=== PATIENT | female | born 1930 ===

== ENCOUNTER 2018-05-10 22:49 | Observation (INO) | payer MEDICARE ==
[2018-05-10] MEDS ORDERED: Morphine 2 mg/ml ISec IVP STA (23:26)
--- NOTE | 2018-05-10 23:33 | ED PDOC ---
Arrival/HPI - General Chief Complaint: Syncope Time Seen by Provider: 05/10/18 23:26 - History of Present Illness Narrative History of Present Illness (Text): 05/10/18 23:28 88 year old female, whose past medical history includes hypertension, pacemaker , OA, and anxiety, presents to the emergency department via EMS s/p fall. Patient reports she felt weak and had midsternal chest pain before the fall. Patient describes the chest pain as a pressure-like sensation. She states she was unable to get up on her own. Patient also reports headache and left elbow pain. Patient denies any LOC, fever, chills, shortness of breath, nausea, vomiting, diarrhea, urinary symptoms, leg pain, back pain, neck pain, dizziness , or any other complaints. PMD: Dr. Orlando Staff Development Educator: Dr. Abreu Past Medical History - Provider Review Nursing Documentation Reviewed: Yes - Cardiac Hx Cardiac Disorders: Yes Hx Hypertension: Yes Hx Pacemaker: Yes - Pulmonary Hx Respiratory Disorders: Yes Hx Pneumonia: Yes Hx Tuberculosis: No - Neurological Hx Neurological Disorder: No - HEENT Hx Blind: Yes - Renal Hx Renal Disorder: No - Endocrine/Metabolic Hx Hypothyroidism: Yes - Hematological/Oncological Hx Blood Disorders: No - Integumentary Hx Dermatological Disorder: No - Musculoskeletal/Rheumatological Hx Arthritis: Yes Hx Falls: Yes - Gastrointestinal Hx Gastrointestinal Disorders: No Hx Vomiting: Yes - Genitourinary/Gynecological Hx Genitourinary Disorders: No - Psychiatric Hx Anxiety: Yes Hx Substance Use: No - Surgical History Hx Cardiac Catheterization: Yes (X4) Hx Eye Surgery: Yes Hx Hysterectomy: Yes Hx Orthopedic Surgery: Yes (LEFT TKR) - Anesthesia Hx Anesthesia: Yes Hx Anesthesia Reactions: No Hx Malignant Hyperthermia: No - Suicidal Assessment Feels Threatened In Home Enviroment: No Family/Social History - Physician Review Nursing Documentation Reviewed: Yes Family/Social History: No Known Family HX Smoking Status: Never Smoked Hx Alcohol Use: No Hx Substance Use: No Allergies/Home Meds Allergies/Adverse Reactions: Allergies iodine Allergy (Verified 05/10/18 22:59) ANAPHYLAXIS meperidine Allergy (Verified 05/10/18 22:59) VOMITING Home Medications: Home Meds Medication Instructions Recorded Confirmed ALPRAZolam [Xanax] 0.25 mg PO HS PRN 01/21/17 05/10/18 Ergocalciferol [Drisdol 50,000 1 cap PO QWK 01/21/17 05/10/18 Intl Units Cap] Gabapentin [Neurontin] 100 mg PO BID 01/21/17 05/10/18 Omeprazole 20 mg PO DAILY 01/21/17 05/10/18 Sertraline [Zoloft] 100 mg PO DAILY 01/21/17 05/10/18 Temazepam [Restoril] 30 mg PO HS 01/21/17 05/10/18 Review of Systems - Physician Review All systems were reviewed & negative as marked: Yes - Review of Systems Respiratory: absent: SOB Gastrointestinal: absent: Vomiting Physical Exam - Physical Exam Narrative Physical Exam (Text): 05/10/18 23:33 Constitutional: No acute distress. Head: Ecchymosis to the right maxilla with swelling. Normocephalic. Atraumatic. Eyes: Positive Arcus Senilis. PERRL. No hyphema ENT: Moist mucous membranes. Neck: Positive midline cervical tenderness. Cardiovascular: Regular rate. Chest: Right-sided pacemaker. No tenderness. Respiratory: Clear to auscultation bilaterally. GI: Soft. Nontender. Nondistended. Back: No CVA tenderness. Musculoskeletal: FROMx4. No tenderness to the legs bilaterally. No tenderness or swelling of extremities. Skin: No rash. Neurologic: Alert, no focal deficit. Vital Signs Reviewed: Yes Vital Signs Temp Pulse Resp BP Pulse Ox 05/10/18 22:58 98.1 F 61 18 138/55 L 100 Medical Decision Making ED Course and Treatment: 05/10/18 23:40 Plan: -- CT Cervial Spine w/o Contrast -- CT head w/o contrast -- Lumbar spine CT w/o contrast -- Orbits/facial CT w/o contrast -- Thoracic spine CT w/o contrast -- Morphine -- Pelvis X-ray -- Labs -- Reassess and disposition Progress Notes: EKG shows electrically paced rhythm at [address] elevation. Interpreted by me. EXAM: CT Head Without Intravenous Contrast Dictated and Authenticated by: Juliet Bledsoe MD 05/11/2018 12:58 AM IMPRESSION: No acute findings EXAM: CT Lumbar Spine Without Intravenous Contrast Dictated and Authenticated by: Juliet Bledsoe MD 05/11/2018 1:09 AM IMPRESSION: No acute findings. EXAM: CT Thoracic Spine Without Intravenous Contrast Dictated and Authenticated by: Juliet Bledsoe MD 05/11/2018 1:11 AM IMPRESSION: No acute findings EXAM: CT Head Without Intravenous Contrast Dictated and Authenticated by: Juliet Bledsoe MD 05/11/2018 12:58 AM IMPRESSION: No acute findings EXAM: CT Orbits Without Intravenous Contrast Dictated and Authenticated by: Juliet Bledsoe MD 05/11/2018 1:19 AM IMPRESSION: No acute findings. Pelvis X-Ray Impression: As read by me, no fracture. 05/11/18 02:30 Case discussed with Quality Compliance Coordinator and Dr. Amos who is aware and agrees with the plan. Accepts patient into his service. - Lab Interpretations Lab Results: 05/10/18 23:52 05/10/18 23:52 Lab Results 05/10/18 23:52: Sodium 138, Potassium 4.2, Chloride 101, Carbon Dioxide 26, Anion Gap 15, BUN 12, Creatinine 0.6 L, Est GFR ( Amer) > 60, Est GFR ( Non-Af Amer) > 60, Random Glucose 99, Calcium 8.8, Total Bilirubin 0.4, AST 41 H D, ALT 27, Alkaline Phosphatase 60, Total Creatine Kinase 58, Troponin I < 0.01, NT-Pro-B Natriuret Pep 313, Total Protein 6.9, Albumin 4.2, Globulin 2.8, Albumin/Globulin Ratio 1.5 05/10/18 23:52: PT 10.6, INR 0.93, APTT 23.9 L 05/10/18 23:52: WBC 6.7, RBC 5.26, Hgb 12.0, Hct 37.9, MCV 72.1 L D, MCH 22.8 L , MCHC 31.7, RDW 18.8 H, Plt Count 296, MPV 8.3, Gran % 69.6 H, Lymph % (Auto) 20.1 L, [place] % (Auto) 7.7 H, Eos % (Auto) 2.2, Baso % (Auto) 0.4, Gran # 4.66, Lymph # (Auto) 1.4, [place] # (Auto) 0.5, Eos # (Auto) 0.2, Baso # (Auto) 0.03 I have reviewed the lab results: Yes - RAD Interpretation Radiology Orders: 05/10/18 23:28 CERVICAL SPINE W/O CONTRAST [CT] Stat HEAD W/O CONTRAST [CT] Stat LUMBAR SPINE W/O CONTRAST [CT] Stat ORBITS/ FACIALS W/O CONTRAST [CT] Stat THORACIC SPINE W/O CONT [CT] Stat PELVIS ONE VIEW [RAD] Stat - EKG Interpretation Interpreted by ED Physician: Yes Type: 12 lead EKG - Medication Orders Current Medication Orders: Ergocalciferol (Drisdol 50,000 Intl Units Cap) 1 cap PO QWK ROB Montelukast Sodium (Singulair) 10 mg PO HS ROB Pantoprazole Sodium (Protonix Ec Tab) 40 mg PO 0600 ROB Discontinued Medications Aspirin (Aspirin) 325 mg PO STAT STA Stop: 05/11/18 02:30 Last Admin: 05/11/18 03:10 Dose: 325 mg Morphine Sulfate (Morphine) 2 mg IVP STAT STA Stop: 05/10/18 23:27 Last Admin: 05/10/18 23:56 Dose: 2 mg MAR Pain Assessment Document 05/10/18 23:56 SS (Rec: 05/10/18 23:58 SS [id number]) Pain Reassessment Is this a pain reassessment? No Sleep Is patient sleeping during reassessment? No Presence of Pain Presence of Pain Yes Pain Scale Used Pain Scale Used Numeric Location Left, Right or Bilateral Bilateral Pain Location Body Site Occipital Face Back Arm Description Description Constant Intensity of Pain at present 10 IVP Administration Document 05/10/18 23:56 SS (Rec: 05/10/18 23:58 SS [id number]) Charges for Administration # of IVP Administrations 1 Pantoprazole Sodium (Protonix Ec Tab) 20 mg PO ACB REPLACED BY [facility] - Scribe Statement The provider has reviewed the documentation as recorded by the Minoo Villa Provider Scribe Attestation: All medical record entries made by the Minoo were at my direction and personally dictated by me. I have reviewed the chart and agree that the record accurately reflects my personal performance of the history, physical exam, medical decision making, and the department course for this patient. I have also personally directed, reviewed, and agree with the discharge instructions and disposition.\ Disposition/Present on Arrival - Present on Arrival Any Indicators Present on Arrival: No History of DVT/PE: No History of Uncontrolled Diabetes: No Urinary Catheter: No History of Decub. Ulcer: No History Surgical Site Infection Following: None - Disposition Have Diagnosis and Disposition been Completed?: Yes Diagnosis: Chest pain Disposition: HOSPITALIZED Disposition Time: 02:30 Patient Plan: Observation, Telemetry Condition: FAIR
[2018-05-11 00:11] LABS: BASO # 0.03 K/mm3 (0.0-2.0); BASO % 0.4 % (0.0-3.0); EOS # 0.2 (0.0-0.7); EOS % 2.2 % (1.5-5.0); GRAN # 4.66 (1.4-6.5); GRAN % 69.6 % (50.0-68.0); LYMPH # 1.4 (1.2-3.4); LYMPH % 20.1 % (22.0-35.0); MEAN CORPUSCULAR HEMOGLOBIN 22.8 pg (25.0-35.0); MEAN CORPUSCULAR HGB CONC 31.7 g/dl (31.0-37.0); MEAN PLATELET VOLUME 8.3 fl (7.0-11.0); MONO # 0.5 (0.1-0.6); MONO % 7.7 % (1.0-6.0); RBC 5.26 10^6/uL (3.5-6.1); RED CELL DISTRIBUTION WIDTH 18.8 % (11.5-14.5); WHITE BLOOD COUNT 6.7 10^3/ul (4.5-11.0)
[2018-05-11 00:12] LABS: MEAN CELL VOLUME 72.1 fl (80.0-105.0)
[2018-05-11 00:15] LABS: ALB/GLOB RATIO 1.5 (1.1-1.8); ALBUMIN 4.2 g/dL (3.0-4.8); ALT/SGPT 27 U/L (7-56); AST/SGOT 41 U/L (14-36); BLOOD UREA NITROGEN 12 mg/dL (7-21); CALCIUM 8.8 mg/dL (8.4-10.5); GFR NON-AFRICAN AMERICAN > 60; PROTHROMBIN TIME 10.6 SECONDS (9.4-12.5)
[2018-05-11 00:16] LABS: INR 0.93 (0.93-1.08); PARTIAL THROMBOPLASTIN TIME 23.9 Seconds (25.1-36.5)
[2018-05-11 00:28] LABS: B-TYPE NATRIURETIC PEPTIDE 313 pg/mL (0-450); TROPONIN I < 0.01 ng/mL
--- NOTE | 2018-05-11 03:46 | CP.PCM.HP ---
<Aakash Romero - Last Filed: 05/11/18 06:32> History of Present Illness - History of Present Illness History of Present Illness: Aakash Romero, PGY-1 History and Physical Note for Dr. Summer Amos Ms. Zambrano is a 88 year old Female who was brought to the hospital by her son after she fell at home in her kitchen. Patient reports that she david from a chair, lost her balance and felt dizzy while standing, and fell to the ground. She hit her cheek on the floor, and it took about half an hour to arise. Patient says it hurts to breathe due to the impact of hitting the floor, and that her bones hurt throughout her body. The patient, who lives alone, crawled to her phone to call her son, who lives in the same building. Ambulance came and brought her to the ED, where she received 325 mg Aspirin and Morphine 2 mg for pain. Patient admits to poor appetite, and that her doctor told her that she is only 87 pounds. Patient has an atrial pacemaker which was put in 10 years ago per patient for slow heart rate. Last echo performed showed an EF of 60 back in 2017. Patient denies SOB, nausea/vomiting, losing consciousness, seizure activity, urinary and fecal incontinence, palpitations, cough, abdominal pain and easy bruising. PMHx: HTN, Pacemaker for bradycardia, OA, Anxiety, Asthma PSHx: cataract surgery, L knee replacement Allergies: Iodine, Meperidine Social Hx: Denies ETOH, tobacco and illicit drug use. Lives alone Fam Hx: no known fam history Meds: Restoril 30 PO, Sertraline 100 PO, Omeprazole 20 PO, Montelukast 10, Gabapentin 100 BID, Ergocalciferol 50,000 units, Alprazolam 0.25 PO PMD: Dr. Orlando Cardio: Dr. Abreu ([place], [place]) 12 point Review of Systems completed and was negative except for HPI. Present on Admission - Present on Admission Any Indicators Present on Admission: No History of DVT/PE: No Review of Systems - Review of Systems Review of Systems: Please refer to HPI. Past Patient History - Past Medical History & Family History Past Medical History?: Yes - Past Social History Smoking Status: Never Smoked - CARDIAC Hx Cardiac Disorders: Yes Hx Hypertension: Yes Hx Pacemaker: Yes - PULMONARY Hx Respiratory Disorders: Yes Hx Pneumonia: Yes Hx Tuberculosis: No - NEUROLOGICAL Hx Neurological Disorder: No - HEENT Hx Blind: Yes - RENAL Hx Chronic Kidney Disease: No - ENDOCRINE/METABOLIC Hx Hypothyroidism: Yes - HEMATOLOGICAL/ONCOLOGICAL Hx Blood Disorders: No - INTEGUMENTARY Hx Dermatological Problems: No - MUSCULOSKELETAL/RHEUMATOLOGICAL Hx Arthritis: Yes Hx Falls: Yes - GASTROINTESTINAL Hx Gastrointestinal Disorders: No Hx Vomiting: Yes - GENITOURINARY/GYNECOLOGICAL Hx Genitourinary Disorders: No - PSYCHIATRIC Hx Anxiety: Yes Hx Substance Use: No - SURGICAL HISTORY Hx Cardiac Catheterization: Yes (X4) Hx Eye Surgery: Yes Hx Hysterectomy: Yes Hx Orthopedic Surgery: Yes (LEFT TKR) - ANESTHESIA Hx Anesthesia: Yes Hx Anesthesia Reactions: No Hx Malignant Hyperthermia: No Meds Allergies/Adverse Reactions: Allergies Allergy/AdvReac Type Severity Reaction Status Date / Time iodine Allergy ANAPHYLAXIS Verified 05/10/18 22:59 meperidine Allergy VOMITING Verified 05/10/18 22:59 Physical Exam - Constitutional Appears: No Acute Distress, Cachectic - Head Exam Additional comments: 3 inch abrasion over R cheek with some blood - Eye Exam Eye Exam: EOMI, Normal appearance. absent: Conjunctival injection, Nystagmus, Scleral icterus Additional comments: arcus senilis noted. [place]-Hallpike maneuver performed. - ENT Exam ENT Exam: Mucous Membranes Dry - Neck Exam Neck exam: Positive for: Tenderness - Respiratory Exam Respiratory Exam: Chest Wall Tenderness, Clear to Auscultation Bilateral, NORMAL BREATHING PATTERN. absent: Rales, Rhonchi, Wheezes, Respiratory Distress - Cardiovascular Exam Cardiovascular Exam: +S1, +S2. absent: Tachycardia, Gallop, JVD Additional comments: scar and subcutaneous pacemaker located in R upper chest - GI/Abdominal Exam GI & Abdominal Exam: Normal Bowel Sounds, Soft. absent: Firm, Guarding, Organomegaly, Pulsatile Mass, Rebound, Tenderness - Extremities Exam Extremities exam: Positive for: normal capillary refill, pedal pulses present. Negative for: joint swelling Additional comments: incision over L knee from knee replacement Results - Vital Signs Recent Vital Signs: Last Vital Signs Temp 98.1 F 05/10/18 22:58 Pulse 61 05/10/18 22:58 Resp 18 05/10/18 22:58 BP 138/55 L 05/10/18 22:58 Pulse Ox 100 05/10/18 22:58 - Labs Result Diagrams: 05/10/18 23:52 05/10/18 23:52 Assessment & Plan - Assessment and Plan (Free Text) Assessment: Ms. Zambrano is an 88 year old Female with a past medical history of HTN, Atrial Pacemaker for Bradycardia, OA, anxiety and asthma who was brought by ambulance to the hospital after an unwitnessed fall at home. Fall 2/2 Presyncope vs r/o ACS vs Orthostatic Hypotension 2/2 Dehydration vs Vasovagal vs UTI - F/U CXR for any possible rib fractures - Imaging (CT of head, cervical, lumbar, thoracic and orbits) were negative except for R maxillary sinus hematoma on CT orbits - Orthostatics performed at bedside were significant- 156/63 lying, 142/58 sitting, 164/68 standing likely 2/2 poor oral intake. - EKG was 62 bpm and showed no acute ST changes - Troponin neg x1- f/u Trop #2 after 6 am - f/u carotid U/S and f/u echo in AM - f/u lipid panel and CPK - f/u cardiology consult- appreciate recommendations - f/u CBC and CMP, Mg, Phos for any electrolyte disturbances - f/u TSH and coagulation studies - f/u UA to r/o underlying UTI - Neuro checks, fall and seizure precautions in place - F/U PT evaluation for disposition Asthma: Patient denies SOB or changes in breathing patterns. continue with home montelukast. Vit. D Deficiency continue with home ergocalciferol GI/DVT Prophylaxis: Protonix 40 SCD's. No other DVT ppx given until recs received from cardio regarding anticoagulation Case reviewed and plan agreed upon with Dr. Summer Romero, PGY-1 <Darrell Amos U - Last Filed: 05/12/18 16:25> Results - Vital Signs Recent Vital Signs: Last Vital Signs Temp 97.1 F L 05/12/18 12:00 Pulse 61 05/12/18 12:00 Resp 20 05/12/18 12:00 BP 99/38 L 05/12/18 12:00 Pulse Ox 96 05/12/18 06:00 - Labs Result Diagrams: 05/12/18 06:00 05/12/18 06:00 Labs: Laboratory Results - last 24 hr 05/11/18 05/11/18 05/11/18 06:00 11:00 11:00 WBC RBC Hgb Hct MCV MCH MCHC RDW Plt Count MPV Gran % Lymph % (Auto) [place] % (Auto) Eos % (Auto) Baso % (Auto) Gran # Lymph # (Auto) [place] # (Auto) Eos # (Auto) Baso # (Auto) Sodium Potassium Chloride Carbon Dioxide Anion Gap BUN Creatinine Est GFR ( Amer) Est GFR (Non-Af Amer) Random Glucose Calcium Phosphorus Magnesium Erythropoietin 23.6 H Ferritin 7.7 Total Bilirubin AST ALT Alkaline Phosphatase Total Protein Albumin Globulin Albumin/Globulin Ratio Vitamin B12 843 Folate > 20.0 RPR Nonreactive 05/12/18 05/12/18 06:00 06:00 WBC 4.9 D RBC 4.88 Hgb 10.9 L Hct 35.4 L MCV 72.5 L MCH 22.3 L MCHC 30.8 L RDW 18.9 H Plt Count 262 MPV 8.4 Gran % 59.7 Lymph % (Auto) 24.7 [place] % (Auto) 9.3 H Eos % (Auto) 4.9 Baso % (Auto) 1.4 Gran # 2.90 Lymph # (Auto) 1.2 [place] # (Auto) 0.5 Eos # (Auto) 0.2 Baso # (Auto) 0.07 Sodium 140 Potassium 4.3 Chloride 104 Carbon Dioxide 28 Anion Gap 12 BUN 8 Creatinine 0.6 L Est GFR ( Amer) > 60 Est GFR (Non-Af Amer) > 60 Random Glucose 97 Calcium 8.4 Phosphorus 3.5 Magnesium 2.2 Erythropoietin Ferritin Total Bilirubin 0.4 AST 23 ALT 18 Alkaline Phosphatase 57 Total Protein 6.1 Albumin 3.6 Globulin 2.5 Albumin/Globulin Ratio 1.4 Vitamin B12 Folate RPR Attending/Attestation - Attestation I have personally seen and examined this patient.: Yes I have fully participated in the care of the patient.: Yes I have reviewed all pertinent clinical information: Yes Notes (Text): Please see/read my dictated notes.
[2018-05-11 04:06] VITALS: BMI 20.1
[2018-05-11] MEDS: Pantoprazole 40 mg EC Tab PO SCH (06:06)
[2018-05-11 06:27] VITALS: O2SAT 96
[2018-05-11 06:42] LABS: BASO # 0.05 K/mm3 (0.0-2.0); BASO % 0.6 % (0.0-3.0); EOS # 0.2 (0.0-0.7); EOS % 2.1 % (1.5-5.0); GRAN # 5.78 (1.4-6.5); GRAN % 71.7 % (50.0-68.0); HEMOGLOBIN 10.6 g/dL (12.0-16.0); LYMPH # 1.4 (1.2-3.4); LYMPH % 17.7 % (22.0-35.0); MEAN CELL VOLUME 71.7 fl (80.0-105.0); MEAN CORPUSCULAR HEMOGLOBIN 22.4 pg (25.0-35.0); MEAN CORPUSCULAR HGB CONC 31.3 g/dl (31.0-37.0); MEAN PLATELET VOLUME 8.6 fl (7.0-11.0); MONO # 0.6 (0.1-0.6); MONO % 7.9 % (1.0-6.0); RBC 4.73 10^6/uL (3.5-6.1); RED CELL DISTRIBUTION WIDTH 18.7 % (11.5-14.5); WHITE BLOOD COUNT 8.1 10^3/ul (4.5-11.0)
[2018-05-11 07:00] LABS: ALB/GLOB RATIO 1.4 (1.1-1.8); ALBUMIN 3.5 g/dL (3.0-4.8); ALT/SGPT 21 U/L (7-56); AST/SGOT 31 U/L (14-36); BLOOD UREA NITROGEN 9 mg/dL (7-21); CALCIUM 8.4 mg/dL (8.4-10.5); GFR NON-AFRICAN AMERICAN > 60; HDL CHOLESTEROL 58 mg/dL (29-60); TROPONIN I < 0.01 ng/mL
[2018-05-11 07:05] LABS: LDL CHOLESTEROL 38 mg/dL (0-129)
[2018-05-11 07:06] LABS: INR 1.02 (0.93-1.08); PARTIAL THROMBOPLASTIN TIME 29.1 Seconds (25.1-36.5); PROTHROMBIN TIME 11.7 SECONDS (9.4-12.5)
[2018-05-11] MEDS ORDERED: Pantoprazole 20 mg EC Tab PO SCH (07:30)
--- NOTE | 2018-05-11 08:50 | RAD ---
Date of service: 05/11/2018 PROCEDURE: Radiographs of the pelvis. HISTORY: Fall COMPARISON: None. FINDINGS: BONES: The pelvic ring is intact. There is diffuse bone demineralization. There is no acute displaced fracture or bone destruction. JOINTS: Joint spaces are preserved OTHER FINDINGS: None. IMPRESSION: No acute displaced fracture or dislocation.
--- NOTE | 2018-05-11 09:27 | RAD ---
Date of service: 05/11/2018 HISTORY: R/o rib fracture 2/2 fall COMPARISON: No prior. FINDINGS: LUNGS: The lungs are well inflated and clear. PLEURA: No significant pleural effusion identified, no pneumothorax apparent. CARDIOVASCULAR: The heart is normal in size. There is a right-sided permanent pacing device. Atherosclerotic aortic arch calcifications are present. OSSEOUS STRUCTURES: No acute displaced rib fracture. VISUALIZED UPPER ABDOMEN: Normal. OTHER FINDINGS: None. IMPRESSION: No acute findings.
--- NOTE | 2018-05-11 09:35 | CT ---
Date of service: 05/11/2018 PROCEDURE: CT HEAD WITHOUT CONTRAST. HISTORY: fall, headache COMPARISON: None available. TECHNIQUE: Axial computed tomography images were obtained through the head/brain without intravenous contrast. Radiation dose: Total exam DLP = 670 mGy-cm. This CT exam was performed using one or more of the following dose reduction techniques: Automated exposure control, adjustment of the mA and/or kV according to patient size, and/or use of iterative reconstruction technique. FINDINGS: HEMORRHAGE: No intracranial hemorrhage. BRAIN: No mass effect or edema. No atrophy or chronic microvascular ischemic changes. VENTRICLES: Unremarkable. No hydrocephalus. CALVARIUM: Unremarkable. PARANASAL SINUSES: Unremarkable as visualized. No significant inflammatory changes. MASTOID AIR CELLS: Unremarkable as visualized. No inflammatory changes. OTHER FINDINGS: The report concurs with the preliminary [facility] report IMPRESSION: No acute findings
--- NOTE | 2018-05-11 09:40 | CT ---
Date of service: 05/11/2018 PROCEDURE: CT MAXILLOFACIAL BONES WITHOUT CONTRAST HISTORY: fall, R maxillary swelling COMPARISON: None TECHNIQUE: Contiguous axial CT images of the maxillofacial bones were obtained. Coronal and sagittal reformats were generated. Radiation dose: Total exam DLP = 740 mGy-cm. This CT exam was performed using one or more of the following dose reduction techniques: Automated exposure control, adjustment of the mA and/or kV according to patient size, and/or use of iterative reconstruction technique. FINDINGS: NASAL BONES: Unremarkable. ORBITS: Unremarkable. PARANASAL SINUSES/ MASTOIDS: Clear. MAXILLA: There is soft tissue swelling and a focal hematoma in the soft tissues adjacent to the right maxilla and zygomatic arch. There is no associated fracture MANDIBLE/ TEMPOROMANDIBULAR JOINTS: Unremarkable. SKULL BASE: Unremarkable. TEMPORAL BONES: Middle ears and mastoid grossly unremarkable. OTHER FINDINGS: None. IMPRESSION: There is soft tissue swelling and a focal hematoma in the soft tissues adjacent to the right maxilla and zygomatic arch. There is no associated fracture
--- NOTE | 2018-05-11 09:45 | CT ---
Date of service: 05/11/2018 PROCEDURE: CT Cervical Spine without contrast HISTORY: fall, midline tenderness COMPARISON: None available. TECHNIQUE: Axial computed tomography images were obtained of the cervical spine without the use of intravenous contrast. Coronal and sagittal reformatted images were created and reviewed. Radiation dose: Total exam DLP = 175 mGy-cm. This CT exam was performed using one or more of the following dose reduction techniques: Automated exposure control, adjustment of the mA and/or kV according to patient size, and/or use of iterative reconstruction technique. FINDINGS: VERTEBRAE: No fracture. Normal alignment. No destructive bony lesion. DISCS/SPINAL CANAL/NEURAL FORAMINA: No significant central canal or neural foraminal stenosis. There is retrolisthesis and disc degeneration at C3-4. There has been fusion at C5-6. PARASPINAL SOFT TISSUES: Unremarkable. OTHER FINDINGS: The report concurs with the preliminary [facility] report IMPRESSION: No acute findings
--- NOTE | 2018-05-11 09:47 | CT ---
Date of service: 05/11/2018 PROCEDURE: CT Thoracic Spine without contrast HISTORY: fall, back pain COMPARISON: None. TECHNIQUE: Axial computed tomography images were obtained of the thoracic spine without intravenous contrast. Coronal and sagittal reformatted images were created and reviewed. Radiation dose: Total exam DLP = 211 mGy-cm. This CT exam was performed using one or more of the following dose reduction techniques: Automated exposure control, adjustment of the mA and/or kV according to patient size, and/or use of iterative reconstruction technique. FINDINGS: VERTEBRAE: Unremarkable. No fracture. Normal alignment. DISCS/SPINAL CANAL/NEURAL FORAMINA: Within the limits of the CT technique, no disc herniation seen. No central canal or neural foraminal stenosis.. PARASPINAL SOFT TISSUES: Unremarkable. OTHER FINDINGS: The report concurs with the preliminary [facility] report. IMPRESSION: No acute findings
--- NOTE | 2018-05-11 09:51 | CT ---
Date of service: 05/11/2018 PROCEDURE: CT Lumbar Spine without contrast HISTORY: fall, back pain COMPARISON: None. TECHNIQUE: Axial computed tomography images were obtained of the lumbar spine without the use of intravenous contrast. Coronal and sagittal reformatted images were created and reviewed. Radiation dose: Total exam DLP = 372 mGy-cm. This CT exam was performed using one or more of the following dose reduction techniques: Automated exposure control, adjustment of the mA and/or kV according to patient size, and/or use of iterative reconstruction technique. FINDINGS: VERTEBRAE: No evidence of compression fracture. There is scoliosis convex to the left with a Harvey angle of 34 degrees. DISCS/SPINAL CANAL/NEURAL FORAMINA: Multilevel disc degeneration PARASPINAL SOFT TISSUES: Unremarkable. OTHER FINDINGS: The report concurs with the preliminary [facility] report IMPRESSION: No acute findings
[2018-05-11] MEDS ORDERED: Ergocalciferol 50,000 Intl Units Cap PO SCH (10:00)
--- NOTE | 2018-05-11 10:17 | US ---
PROCEDURE: Bilateral carotid artery duplex ultrasound HISTORY: Carotid stenosis syncope PHYSICIAN(S): Luke Rebolledo MD. TECHNIQUE: Duplex sonography and color-flow Doppler were used to evaluate the carotid bifurcations and limited segments of the vertebral arteries bilaterally. FINDINGS: There is mild smooth diffuse heterogeneous echogenic plaque noted at the carotid bifurcations bilaterally. The peak systolic velocity in the proximal right internal carotid artery is 81 cm/sec. This corresponds to a 20 to 39% proximal right ICA stenosis. Normal systolic velocities are noted in the proximal right external carotid artery. There is antegrade flow in the right vertebral artery. The peak systolic velocity in the proximal left internal carotid artery is 95 cm/sec. This corresponds to a 20 to 39% proximal left ICA stenosis. Normal systolic velocities are noted in the proximal left external carotid artery. There is antegrade flow in the left vertebral artery. IMPRESSION: 1. Bilateral 20-39% proximal ICA stenoses. 2. Antegrade flow in both vertebral arteries.
[2018-05-11 10:31] LABS: IRON 19 ug/dL (45-180)
[2018-05-11 10:40] LABS: % IRON SATURATION 5 % (20-55); TOTAL IRON BINDING CAPACITY 378 ug/dL (265-497)
[2018-05-11 10:50] LABS: FREE T4 1.45 ng/dL (0.78-2.19); T4 9.6 ug/dL (5.5-11.0)
[2018-05-11 11:33] LABS: TROPONIN I < 0.01 ng/mL
--- NOTE | 2018-05-11 16:30 | CP.PCM.PN ---
Subjective - Date & Time of Evaluation Date of Evaluation: 05/11/18 Time of Evaluation: 16:25 - Subjective Subjective: Orthopedic evaluation Dr. Buchanan, full consult to follow 88F complains of pain all over her body after fall yesterday from standing onto right side. Worst pain is in her right cheek and eye. She does not localize pain to any other extremities. She admits to some low back pain. She says she was on the ground for approx 30 min before her son came. She says she feels weak. Denies numbness/tingling/loss of bowel/bladder. Objective - Vital Signs/Intake and Output Vital Signs (last 24 hours): Temp Pulse Resp BP Pulse Ox 98 F 74 18 109/59 L 96 05/11/18 12:00 05/11/18 14:00 05/11/18 12:00 05/11/18 12:00 05/11/18 06:00 Intake and Output: 05/11/18 05/11/18 06:59 18:59 Intake Total 0 Output Total 200 Balance -200 - Medications Medications: Current Medications Ergocalciferol (Drisdol 50,000 Intl Units Cap) 1 cap PO QWK [facility] Last Admin: 05/11/18 10:35 Dose: 1 cap Gabapentin (Neurontin) 100 mg PO BID [facility] PRN Reason: Protocol Last Admin: 05/11/18 10:35 Dose: 100 mg Montelukast Sodium (Singulair) 10 mg PO HS [facility] Pantoprazole Sodium (Protonix Ec Tab) 40 mg PO 0600 [facility] Last Admin: 05/11/18 06:06 Dose: 40 mg Sertraline HCl (Zoloft) 100 mg PO DAILY [facility] Last Admin: 05/11/18 10:35 Dose: 100 mg - Labs Labs: 05/11/18 06:00 05/11/18 06:00 PT 11.7 SECONDS (9.4-12.5) 05/11/18 06:00 INR 1.02 (0.93-1.08) 05/11/18 06:00 APTT 29.1 Seconds (25.1-36.5) 05/11/18 06:00 - Constitutional Appears: Well, No Acute Distress - Head Exam Additional comments: laceration to right cheek, swelling to right orbit and cheek and jaw with ecchymosis - Extremities Exam Additional comments: calves soft NT neg homans full ROM BLE without pain, no swelling/deformity discoloration except erythema over right greater troch (skin intact) and ecchymosis to lateral right knee, NVID full ROM BUE without pain in arms, no swelling/deformity/discoloration complains of feeling pain in chest with moving arms, especially right, and taking deep breaths - Back Exam Additional comments: mild paraspinal tenderness - Neurological Exam Neurological Exam: Alert, Awake, Oriented x3 Neuro motor strength exam: Left Upper Extremity: 5, Right Upper Extremity: 5, Left Lower Extremity: 5, Right Lower Extremity: 5 - Psychiatric Exam Psychiatric exam: Normal Affect, Normal Mood - Skin Skin Exam: Dry, Intact (2cm mild ecchymosis right lateral knee), Warm Assessment and Plan (1) Fall Assessment & Plan: right knee xray due to ecchymosis VTE proph PT/OT d/w Dr. Buchanan, agrees with above Status: Acute Radiology Interpretation - Radiology Interpretation #2 Interpretation: atient Name / ID : HATTIE ROSA / [id number] Exam Date : 05/11/2018 00:33:15 ( Approved ) Study Comment : Sex / Age : F / 88Y Creator : Ivis Adame MD Dictator : Ivis Adame MD Massage Therapy Instructor : Equity Holder : Ivis Adame MD Approver2 : Report Date : 05/11/2018 08:49:01 My Comment : Date of service: 05/11/2018 PROCEDURE: Radiographs of the pelvis. HISTORY: Fall COMPARISON: None. FINDINGS: BONES: The pelvic ring is intact. There is diffuse bone demineralization. There is no acute displaced fracture or bone destruction. JOINTS: Joint spaces are preserved OTHER FINDINGS: None. IMPRESSION: No acute displaced fracture or dislocation. Patient Name / ID : HATTIE ROSA / [id number] Exam Date : 05/11/2018 00:18:49 ( Approved ) Study Comment : Sex / Age : F Y Creator : Ted Mcintyre MD Dictator : Ted Mcintyre MD Massage Therapy Instructor : Equity Holder : Ted Mcintyre MD Approver2 : Report Date : 05/11/2018 09:45:44 My Comment : Date of service: 05/11/2018 PROCEDURE: CT Thoracic Spine without contrast HISTORY: fall, back pain COMPARISON: None. TECHNIQUE: Axial computed tomography images were obtained of the thoracic spine without intravenous contrast. Coronal and sagittal reformatted images were created and reviewed. Radiation dose: Total exam DLP = 211 mGy-cm. This CT exam was performed using one or more of the following dose reduction techniques: Automated exposure control, adjustment of the mA and/or kV according to patient size, and/or use of iterative reconstruction technique. FINDINGS: VERTEBRAE: Unremarkable. No fracture. Normal alignment. DISCS/SPINAL CANAL/NEURAL FORAMINA: Within the limits of the CT technique, no disc herniation seen. No central canal or neural foraminal stenosis.. PARASPINAL SOFT TISSUES: Unremarkable. OTHER FINDINGS: The report concurs with the preliminary [facility] report. IMPRESSION: No acute findings - Radiology Interpretation #3 Interpretation: Patient Name / ID : HATTIE ROSA / [id number] Exam Date : 05/11/2018 00:18:49 ( Approved ) Study Comment : Sex / Age : F Y Creator : Ted Mcintyre MD Dictator : Ted Mcintyre MD Massage Therapy Instructor : Equity Holder : Ted Mcintyre MD Approver2 : Report Date : 05/11/2018 09:45:44 My Comment : Date of service: 05/11/2018 PROCEDURE: CT Thoracic Spine without contrast HISTORY: fall, back pain COMPARISON: None. TECHNIQUE: Axial computed tomography images were obtained of the thoracic spine without intravenous contrast. Coronal and sagittal reformatted images were created and reviewed. Radiation dose: Total exam DLP = 211 mGy-cm. This CT exam was performed using one or more of the following dose reduction techniques: Automated exposure control, adjustment of the mA and/or kV according to patient size, and/or use of iterative reconstruction technique. FINDINGS: VERTEBRAE: Unremarkable. No fracture. Normal alignment. DISCS/SPINAL CANAL/NEURAL FORAMINA: Within the limits of the CT technique, no disc herniation seen. No central canal or neural foraminal stenosis.. PARASPINAL SOFT TISSUES: Unremarkable. OTHER FINDINGS: The report concurs with the preliminary [facility] report. IMPRESSION: No acute findings atient Name / ID : HATTIE ROSA / [id number] Exam Date : 05/11/2018 00:15:42 ( Approved ) Study Comment : Sex / Age : F / 88Y Creator : Ted Mcintyre MD Dictator : Ted Mcintyre MD Massage Therapy Instructor : Equity Holder : Ted Mcintyre MD Approver2 : Report Date : 05/11/2018 09:43:45 My Comment : Date of service: 05/11/2018 PROCEDURE: CT Cervical Spine without contrast HISTORY: fall, midline tenderness COMPARISON: None available. TECHNIQUE: Axial computed tomography images were obtained of the cervical spine without the use of intravenous contrast. Coronal and sagittal reformatted images were created and reviewed. Radiation dose: Total exam DLP = 175 mGy-cm. This CT exam was performed using one or more of the following dose reduction techniques: Automated exposure control, adjustment of the mA and/or kV according to patient size, and/or use of iterative reconstruction technique. FINDINGS: VERTEBRAE: No fracture. Normal alignment. No destructive bony lesion. DISCS/SPINAL CANAL/NEURAL FORAMINA: No significant central canal or neural foraminal stenosis. There is retrolisthesis and disc degeneration at C3-4. There has been fusion at C5-6. PARASPINAL SOFT TISSUES: Unremarkable. OTHER FINDINGS: The report concurs with the preliminary [facility] report IMPRESSION: No acute findings
--- NOTE | 2018-05-11 16:33 | CARD ---
APPROVED REPORT Date of service: 05/11/2018 EXAM: Two-dimensional and M-mode echocardiogram with Doppler and color Doppler. INDICATION Pre Syncope, Dizziness 2D DIMENSIONS Left Atrium (2D)4.3 (1.6-4.0cm)IVSd0.9 (0.7-1.1cm) LVDd4.1 (3.9-5.9cm)PWd1.1 (0.7-1.1cm) LVDs3.1 (2.5-4.0cm)FS (%) 23.7 % LVEF (%)47.8 (>50%) M-Mode DIMENSIONS Aortic Root3.40 (2.2-3.7cm)Aortic Cusp Exc.1.50 (1.5-2.0cm) Aortic Valve AoV Peak Mjetgynf105.0cm/Alia Peak GR.7mmHg Mitral Valve MV E Ejwkhlpb16.8cm/sMV A Utahhxhg49.4cm/sE/A ratio0.7 TDI Lateral E' Peak V6.73cm/sMedial E' Peak V6.14cm/sE/Lateral E'8.6 E/Medial E'9.4 Pulmonary Valve PV Peak Sietshuj92.1cm/sPV Peak Grad.2mmHg Tricuspid Valve TR Peak Pfcapgnx609jj/sRAP [id number] Peak Gr.36mmHg [id number] LEFT VENTRICLE The left ventricle is normal size. There is normal left ventricular wall thickness. The systolic function is mildly impaired. There is global hypokinesis of the left ventricle. Transmitral Doppler flow pattern is Grade I-abnormal relaxation pattern. RIGHT VENTRICLE The right ventricle is normal size. There is normal right ventricular wall thickness. RV Systolic function is mildly reduced. ATRIA The left atrium is borderline dilated. The right atrium is borderline dilated. AORTIC VALVE The aortic valve is moderately thickened. No aortic regurgitation is present. There is no aortic valvular stenosis. MITRAL VALVE The mitral valve is moderately thickened. Mitral regurgitation is mild. There is no mitral valve stenosis. TRICUSPID VALVE The tricuspid valve is normal in structure. There is mild to moderate tricuspid regurgitation. There is mild to moderate pulmonary hypertension. GREAT VESSELS The aortic root is normal in size. The IVC is dilated. PERICARDIAL EFFUSION There is no pericardial effusion. <Conclusion> The left ventricle is normal size. There is normal left ventricular wall thickness. The systolic function is mildly impaired. There is global hypokinesis of the left ventricle. Transmitral Doppler flow pattern is Grade I-abnormal relaxation pattern. Mitral regurgitation is mild. There is mild to moderate tricuspid regurgitation. There is mild to moderate pulmonary hypertension.
[2018-05-11 16:45] LABS: FERRITIN 7.7 ng/mL
--- NOTE | 2018-05-11 16:47 | CARD ---
APPROVED REPORT Date of service: 05/10/2018 EKG Measurement Heart [id number] <Conclusion> Electronic atrial pacemaker Nonspecific T wave abnormality Abnormal ECG
--- NOTE | 2018-05-11 16:59 | CP.PCM.CON ---
History of Present Illness - History of Present Illness History of Present Illness: 88y/o female admitted to [facility] [place] on 05/10/18 s/p fall. Pt david and felt off balance and fell hitting the floor. Pt hit her face during this injury. CT done during hospitalization reveals rt cheek hematoma no fx. Films personally reviewed by me. Pt still having pain and swelling over the area with some bleeding. PMHx: HTN, bradycardia, OA, Anxiety and asthma Sx Hx: paser, cateract and left knee All: iodine and meperidine Fam: NC Meds restoril sertraline omeprazole, singulair, gabapentin, ergocalciferol, alprazolam Review of Systems - Constitutional Constitutional: As Per HPI. absent: Fatigue, Fever - EENT Eyes: As Per HPI Ears: As Per HPI Nose/Mouth/Throat: As Per HPI - Breasts Breasts: As Per HPI - Cardiovascular Cardiovascular: As Per HPI - Respiratory Respiratory: As Per HPI - Musculoskeletal Musculoskeletal: As Per HPI, Abnormal Gait, Arthralgias - Integumentary Integumentary: As Per HPI - Neurological Neurological: As Per HPI - Psychiatric Psychiatric: As Per HPI - Endocrine Endocrine: As Per HPI - Hematologic/Lymphatic Hematologic: As Per HPI Past Patient History - Past Medical History & Family History Past Medical History?: Yes - Past Social History Smoking Status: Never Smoked - CARDIAC Hx Cardiac Disorders: Yes (Pacemaker, cardiac cath X 4 times) Hx Hypertension: Yes - PULMONARY Hx Respiratory Disorders: Yes Hx Pneumonia: Yes Hx Tuberculosis: No - NEUROLOGICAL Hx Neurological Disorder: No - HEENT Hx Blind: Yes - RENAL Hx Chronic Kidney Disease: No - ENDOCRINE/METABOLIC Hx Hypothyroidism: Yes - HEMATOLOGICAL/ONCOLOGICAL Hx Blood Disorders: No - INTEGUMENTARY Hx Dermatological Problems: No - MUSCULOSKELETAL/RHEUMATOLOGICAL Hx Arthritis: Yes - GASTROINTESTINAL Hx Gastrointestinal Disorders: No Hx Vomiting: Yes - GENITOURINARY/GYNECOLOGICAL Hx Genitourinary Disorders: No - PSYCHIATRIC Hx Anxiety: Yes Hx Substance Use: No - SURGICAL HISTORY Hx Cardiac Catheterization: Yes (X4) Hx Eye Surgery: Yes Hx Hysterectomy: Yes Hx Orthopedic Surgery: Yes (LEFT TKR) - ANESTHESIA Hx Anesthesia: Yes Hx Anesthesia Reactions: No Hx Malignant Hyperthermia: No Meds Allergies/Adverse Reactions: Allergies Allergy/AdvReac Type Severity Reaction Status Date / Time iodine Allergy ANAPHYLAXIS Verified 07/09/18 22:59 meperidine Allergy VOMITING Verified 05/10/18 22:59 - Medications Medications: Current Medications Ergocalciferol (Drisdol 50,000 Intl Units Cap) 1 cap PO QWK [facility] Last Admin: 05/11/18 10:35 Dose: 1 cap Gabapentin (Neurontin) 100 mg PO BID [facility] PRN Reason: Protocol Last Admin: 05/11/18 10:35 Dose: 100 mg Montelukast Sodium (Singulair) 10 mg PO HS [facility] Pantoprazole Sodium (Protonix Ec Tab) 40 mg PO 0600 [facility] Last Admin: 05/11/18 06:06 Dose: 40 mg Sertraline HCl (Zoloft) 100 mg PO DAILY [facility] Last Admin: 05/11/18 10:35 Dose: 100 mg Physical Exam - Constitutional Appears: Well, Non-toxic - Head Exam Head Exam: NORMOCEPHALIC Additional comments: Small hematoma right cheek, no bony step off or palate movement upon palpation - Eye Exam Eye Exam: EOMI, Normal appearance Pupil Exam: NORMAL ACCOMODATION - ENT Exam ENT Exam: Mucous Membranes Moist Additional comments: no bony step off, EAC's wnl, nose wnl throat wnl, no palate movement, hematoma rt cheek small - Neck Exam Neck exam: Positive for: Normal Inspection - Respiratory Exam Respiratory Exam: NORMAL BREATHING PATTERN Results - Vital Signs Recent Vital Signs: Last Vital Signs Temp 98 F 05/11/18 12:00 Pulse 74 05/11/18 14:00 Resp 18 05/11/18 12:00 BP 109/59 L 05/11/18 12:00 Pulse Ox 96 05/11/18 06:00 - Labs Result Diagrams: 05/11/18 06:00 05/11/18 06:00 Labs: Laboratory Results - last 24 hr 05/11/18 05/11/18 05/11/18 06:00 06:00 06:00 WBC 8.1 D RBC 4.73 Hgb 10.6 L Hct 33.9 L MCV 71.7 L MCH 22.4 L MCHC 31.3 RDW 18.7 H Plt Count 298 MPV 8.6 Gran % 71.7 H Lymph % (Auto) 17.7 L [place] % (Auto) 7.9 H Eos % (Auto) 2.1 Baso % (Auto) 0.6 Gran # 5.78 Lymph # (Auto) 1.4 [place] # (Auto) 0.6 Eos # (Auto) 0.2 Baso # (Auto) 0.05 Retic Count PT 11.7 INR 1.02 APTT 29.1 Sodium Potassium Chloride Carbon Dioxide Anion Gap BUN Creatinine Est GFR ( Amer) Est GFR (Non-Af Amer) Random Glucose Calcium Phosphorus Magnesium Iron TIBC % Saturation Ferritin Total Bilirubin AST ALT Alkaline Phosphatase Total Creatine Kinase Troponin I Total Protein Albumin Globulin Albumin/Globulin Ratio Triglycerides Cholesterol LDL Cholesterol Direct HDL Cholesterol Free T4 Thyroxine (T4) TSH 3rd Generation Blood Type AB POSITIVE Antibody Screen Negative BBK History Checked Patient has bt 05/11/18 05/11/18 05/11/18 06:00 06:00 06:00 WBC RBC Hgb Hct MCV MCH MCHC RDW Plt Count MPV Gran % Lymph % (Auto) [place] % (Auto) Eos % (Auto) Baso % (Auto) Gran # Lymph # (Auto) [place] # (Auto) Eos # (Auto) Baso # (Auto) Retic Count 0.56 PT INR APTT Sodium 140 Potassium 3.9 Chloride 103 Carbon Dioxide 29 Anion Gap 11 BUN 9 Creatinine 0.5 L Est GFR ( Amer) > 60 Est GFR (Non-Af Amer) > 60 Random Glucose 105 Calcium 8.4 Phosphorus 3.9 Magnesium 2.1 Iron TIBC % Saturation Ferritin Total Bilirubin 0.2 AST 31 ALT 21 Alkaline Phosphatase 54 Total Creatine Kinase 47 Troponin I < 0.01 Total Protein 6.0 Albumin 3.5 Globulin 2.5 Albumin/Globulin Ratio 1.4 Triglycerides 76 Cholesterol 123 L LDL Cholesterol Direct 38 HDL Cholesterol 58 Free T4 Thyroxine (T4) TSH 3rd Generation 0.76 Blood Type Antibody Screen BBK History Checked 05/11/18 05/11/18 05/11/18 06:00 06:00 11:00 WBC RBC Hgb Hct MCV MCH MCHC RDW Plt Count MPV Gran % Lymph % (Auto) [place] % (Auto) Eos % (Auto) Baso % (Auto) Gran # Lymph # (Auto) [place] # (Auto) Eos # (Auto) Baso # (Auto) Retic Count PT INR APTT Sodium Potassium Chloride Carbon Dioxide Anion Gap BUN Creatinine Est GFR ( Amer) Est GFR (Non-Af Amer) Random Glucose Calcium Phosphorus Magnesium Iron 19 L TIBC 378 % Saturation 5 L Ferritin 7.7 Total Bilirubin AST ALT Alkaline Phosphatase Total Creatine Kinase Troponin I < 0.01 Total Protein Albumin Globulin Albumin/Globulin Ratio Triglycerides Cholesterol LDL Cholesterol Direct HDL Cholesterol Free T4 1.45 Thyroxine (T4) 9.6 TSH 3rd Generation Blood Type Antibody Screen BBK History Checked Assessment & Plan (1) Fall Status: Acute (2) Anxiety Status: Acute (3) Dehydration Status: Acute (4) Hypertension Status: Acute (5) Hypothyroid Status: Acute (6) Reactive airway disease Status: Acute (7) Contusion of unspecified part of head, initial encounter Status: Acute - Assessment and Plan (Free Text) Plan: Ice to area and conservative management. fu out patient - Date & Time Date: 05/11/18 Time: 16:58
[2018-05-11 17:15] LABS: FOLATE > 20.0 ng/mL
--- NOTE | 2018-05-11 17:16 | RAD ---
Date of service: 05/11/2018 PROCEDURE: Right Knee Radiographs. HISTORY: right knee pain/ecchymosis COMPARISON: None. FINDINGS: BONES: No acute fracture. JOINTS: Tricompartmental narrowing with degenerative spurring. JOINT EFFUSION: None. OTHER FINDINGS: Soft-tissue swelling anterior to the patellar tendon. IMPRESSION: Soft tissue swelling anterior to the patellar tendon. No demonstrated fracture or dislocation. Degenerative changes.
--- NOTE | 2018-05-11 18:07 | CON ---
DATE: 05/11/2018 NEUROLOGY CONSULTATION CHIEF COMPLAINT: Falls. HISTORY OF PRESENTING ILLNESS: This is an 88-year-old woman with past medical history of hypertension; bradycardia, status post pacemaker; osteoarthritis; anxiety; asthma; who apparently came to the hospital after a fall in her kitchen. She was in the chair, lost her balance, felt lightheaded and fell to the ground, hit her cheek on the floor, and took half an hour to arise. CT head showed no acute intracranial abnormality. She is currently moving all extremities. She admits to have poor appetite and she has been losing weight. Her carotid Doppler showed 20% to 39% proximal ICA stenosis with antegrade flow in the vertebral arteries. Currently, no orthostatic vital signs. PAST MEDICAL HISTORY: As above. SOCIAL HISTORY: No illicit drug use, smoking, or EtOH abuse. PAST SURGICAL HISTORY: Cataract surgery and left knee replacement. MEDICATIONS: Reviewed by nurse per reconciliation sheet. FAMILY HISTORY: Noncontributory. ALLERGIES: IODINE AND MEPERIDINE. LABORATORY DATA: Sodium is 140, potassium 3.9, chloride 102, carbon dioxide 29. BUN of 9, creatinine 0.5. Random glucose 105. PHYSICAL EXAMINATION: VITAL SIGNS: Temperature 98, pulse rate 60, blood pressure 109/59, respiratory rate of 18, oxygen saturation 90% by room air. GENERAL: Patient sitting up in bed, in no acute distress. HEENT: Head is atraumatic and normocephalic. PERRLA. Extraocular muscles intact. NECK: Supple. No JVD. No adenopathy noted. LUNGS: Clear to auscultation. No adventitious sounds. HEART: S1 and S2, normal rate and rhythm. No murmurs, rubs, or gallops. ABDOMEN: Soft, nontender, and nondistended. Bowel sounds are present. EXTREMITIES: No clubbing. No cyanosis. Peripheral pulses are 2+ felt bilaterally. NEUROLOGIC: The patient is alert and oriented to person, place, month, and year. Recall after 5 minutes is 1/3. Poor attention span. Slow thought process. Flat affect. Cranial nerves II through XII are intact. Motor exam: Slight increased tone throughout. Moves all extremities equally. No tremor seen. Sensory exam: Light touch, pinprick, proprioception, and vibration are intact. DTRs are 2+ throughout and 1 at the ankles. Coordination: [id number] intact. No dysmetria noted. Gait is deferred for now. ASSESSMENT AND PLAN: This is an 88-year-old woman with past medical history of hypertension, atrial pacemaker for bradycardia, osteoarthritis, anxiety, asthma, who came to the hospital after unwitnessed fall at home. She found to have some orthostatic vital signs were done, which were mildly significant secondary to poor oral intake. Her transient dizziness episode is likely secondary to transient vasovagal component with transient cerebral hypoperfusion to the brain superimposed on generalized weakness from deconditioned state. At this time, we recommend; 1. Orthostatic vital signs. 2. Adequate hydration throughout the day. 3. Keep systolic blood pressure between 130s to 140s and diastolic 70s to 80s. 4. Physical and occupational therapy, may be some mild subacute rehab for deconditioned state. Once again, thank you for this consult. No further neuro testing needed. Cody Mejia MD
--- NOTE | 2018-05-11 20:03 | HP ---
HISTORY OF PRESENT ILLNESS: Patient is admitted through the emergency room. According to the triage note, patient came to the emergency room by the EMS ambulance after status post fall. Patient reports that she felt dizzy, lost balance, and fell on the right side of the body complaining of arm pain, discoloration around the right forehead and the orbits. According to the ER physician evaluation note, patient came to the emergency room with the EMS after feeling weak and also complaining of midsternal chest pain. Patient also described pressure-like sensation. Patient complained of headache, arm pain after patient fell. According to the medical information specialist evaluation, patient fell at home in the kitchen after she david up from the chair and lost her balance, fell dizzy standing, and fell to the ground and hit her right cheek on the floor and patient was on the floor for about half an hour. Patient complained of rib cage and midsternal chest pain and complained of diffuse aches and pain. Patient was treated. ALLERGIES: IODINE AND MEPERIDINE. Height is 5 feet. Weight is 84 pounds. BMI 16.5. HOME MEDICATIONS: Restoril 30 mg at bedtime, Drisdol 50,000 weekly, Neurontin 100 mg twice a day, omeprazole 20 mg daily, Restoril 30 mg at bedtime, Singulair 10 mg at bedtime, Xanax 0.25 at bedtime p.r.n., Zoloft 10 mg daily. SOCIAL HISTORY: Denies. Negative for substance abuse. Negative for alcohol. Negative for smoking. CODE STATUS: Full code. LIVING WILL AND ADVANCE DIRECTIVE: None. MENSTRUAL HISTORY: Postmenopausal. OCCUPATIONAL HISTORY: Disabled. PAST MEDICAL HISTORY: Significant for hypertension, hypovitaminosis D, history of pacemaker implant, history of neuropathy, history of insomnia, history of questionable anxiety and depression. Patient's past medical history is significant for reactive airway disease, history of anemia, history of hypothyroidism on no medications at present, history of questionable valvular heart disease, history of proteinuria, history of pyuria and bacteriuria, history of degenerative joint disease of the lumbar spine, history of gallbladder sludge, history of hysterectomy with nonvisualized ovaries. Patient's past medical history is also significant for history of osteoporosis, history of dense breast, history of hallux valgus deformity of the foot, history of right lower lobe opacity and right apical pulmonary nodule, history of ectatic thoracic aorta, history of cardiomegaly, history of right lower lobe pneumonia, atelectasis, history of right apical pulmonary nodule, history of moderate pulmonary hypertension with right ventricular systolic pressure of 40 to 50 mmHg, history of diastolic dysfunction, history of moderate pulmonary hypertension, history of grade 1 LV diastolic dysfunction. PHYSICAL EXAMINAATION: GENERAL: Patient is seen in room 372. The patient is lying in the bed. VITAL SIGNS: T-max 98.1. Heart rate 64, 71, 74. Blood pressure 138/55, 142/58. Respirations 18. O2 sat is 96 to 99%. HEENT: Positive right infraorbital bluish discoloration and swelling. Positive right facial swelling noted. Right maxillary area swelling noted. Pinkish pale conjunctivae. Dry oral mucosa. NECK: No neck rigidity. CHEST: Kyphosis. Positive right upper chest pacemaker noted. Positive kyphosis. CARDIOVASCULAR: S1, S2. Regular rhythm. Positive systolic murmur, left sternal border, right second costal space, left second intercostal space. ABDOMEN: Soft. Positive bowel sound. GENITALIA: Female. RECTAL: Deferred. EXTREMITIES: Shows no pitting, no calf numbness, no Homans' sign. MUSCULOSKELETAL: Shows a body mass index of 16.5. Cranial nerves II through XII limited. Shows decreased muscle mass. GAIT: Not tested. PSYCHIATRIC: Positive for history of anxiety, depression. DIAGNOSTICS STUDIES: Hemoglobin and hematocrit is ranging between 10.6/33.9 and 12/37.9. Platelets 298, 296. Granulocytes 71.2. Retic count 0.56. PT/PTT 11.7, 29.1. Chemistry is normal. LFTs are normal. Troponin is negative. Cholesterol 123, LDL 38, HDL 58. TSH is normal. B12, folate is normal. Iron is 19, saturation 5. RPR is nonreactive. Patient's imaging studies including knee x-ray, chest x-ray, carotid ultrasound, thoracic spine and lumbar spine CT, cervical spine CT, pelvic x-ray, orbital CT, CT of the head, all reviewed. EKG reviewed which shows paced rhythm. Patient's echocardiogram was done on an urgent basis for evaluation of chest pain which was reviewed. IMPRESSION: 1. Status post fall. 2. Dizziness, etiology undetermined. 3. Right facial contusion. 4. Precordial retrosternal chest pain, etiology undetermined. 5. Questionable hypotension. 6. Normocytic iron-deficiency anemia with granulocytosis. 7. Permanent pacemaker implant. 8. Degenerative joint disease of the right knee with tricompartmental narrowing with degenerative spurring and soft tissue swelling anterior to the patellar tendon. 9. Status post right upper chest permanent pacemaker implant. 10. Bilateral 20 to 39% proximal internal carotid artery stenosis. 11. Diffuse bone demineralization of the pelvic bones. 12. Right maxillary and zygomatic arch soft tissue swelling and focal hematoma. 13. 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 14. Gait dysfunction. 15. History of anxiety, depression, and insomnia. 16. Degenerative joint disease of the cervical spine with C5-C6 fusion. 17. Hypertensive cardiovascular disease. 18. Pulmonary hypertension with right ventricular systolic pressure of 46 mmHg. 19. Mildly impaired left ventricular systolic function with ejection fraction of 48%. 20. Grade 1 abnormal relaxation pattern. 21. Mild mitral regurgitation. 22. Moderate tricuspid regurgitation and moderate pulmonary hypertension. 23. Mildly impaired left ventricular systolic function with global left ventricular hypokinesis. 24. Moderate tricuspid regurgitation. PLAN: At this time, patient will be admitted to telemetry. Serial cardiac enzymes ordered, which are negative. Repeat labs ordered. CONSULTATION: 1. Cardiology. 2. Neurology. 3. ENT. 4. Orthopedics. Referral for TCU ordered. Patient is started on vitamin D 50,000 weekly, IV iron 200 mg daily, Neurontin 100 twice a day, Protonix 40 mg daily, Singulair 10 mg at nighttime, Zoloft 100 mg daily. Heart-healthy diet, out of bed, neuro checks, seizure precautions all ordered. SCDs, occupational therapy, physical therapy ordered. Patient will be ordered Ecotrin 81 mg daily. GI and DVT prophylaxis ordered. Patient will be continued on the above therapeutic intervention. Patient's further management will be dependent upon the patient's clinical condition, hemodynamic status, and as per patient's response to therapeutic intervention as per the patient's diagnostic test results and as per the recommendation by Cardiology; Neurology; Ear, Nose, Throat; Orthopedics. Patient has been placed on a heart-healthy diet. Dictated and electronically signed, not read. Darrell Amos MD [facility] # [id number]
[2018-05-11] MEDS: Sodium Chloride 0.9% 1,000 ML IV SCH (22:47)
[2018-05-12 06:37] LABS: BASO # 0.07 K/mm3 (0.0-2.0); BASO % 1.4 % (0.0-3.0); EOS # 0.2 (0.0-0.7); EOS % 4.9 % (1.5-5.0); GRAN # 2.9 (1.4-6.5); GRAN % 59.7 % (50.0-68.0); HEMOGLOBIN 10.9 g/dL (12.0-16.0); LYMPH # 1.2 (1.2-3.4); LYMPH % 24.7 % (22.0-35.0); MEAN CELL VOLUME 72.5 fl (80.0-105.0); MEAN CORPUSCULAR HEMOGLOBIN 22.3 pg (25.0-35.0); MEAN CORPUSCULAR HGB CONC 30.8 g/dl (31.0-37.0); MEAN PLATELET VOLUME 8.4 fl (7.0-11.0); MONO # 0.5 (0.1-0.6); MONO % 9.3 % (1.0-6.0); RBC 4.88 10^6/uL (3.5-6.1); RED CELL DISTRIBUTION WIDTH 18.9 % (11.5-14.5)
[2018-05-12 06:40] VITALS: RESP 20
[2018-05-12] MEDS: Pantoprazole 40 mg EC Tab PO SCH (06:41)
[2018-05-12 06:59] LABS: WHITE BLOOD COUNT 4.9 10^3/ul (4.5-11.0)
[2018-05-12 07:04] LABS: ALB/GLOB RATIO 1.4 (1.1-1.8); ALBUMIN 3.6 g/dL (3.0-4.8); ALT/SGPT 18 U/L (7-56); AST/SGOT 23 U/L (14-36); BLOOD UREA NITROGEN 8 mg/dL (7-21); CALCIUM 8.4 mg/dL (8.4-10.5); GFR NON-AFRICAN AMERICAN > 60
--- NOTE | 2018-05-12 09:12 | CON ---
DATE: 05/12/2018 REQUESTING PHYSICIAN: Dr. Amos. REASON FOR CONSULTATION: Recent fall, dizziness. HISTORY: This is an 88-year-old woman with a history of hypertension, prior conduction system disease, status post permanent pacemaker implant, who suffered a fall at home with multiple contusions and injury. She states that she felt somewhat dizzy and lost her balance and fell to the floor. She cannot recall any other prodromal symptoms. She is unaware of any palpitations. She denies any loss of consciousness. She suffered a contusion of her right infraorbital region as well as right arm and rib injury. Radiographic images showed no evidence of fractures. She has been maintained on Telemetry with no evidence of significant dysrhythmias. She states she underwent permanent pacemaker implant at [facility] 13 years ago. She has had one generator change in the interim. She follows with a purchasing clerk in [place] and has pacemaker followups performed routinely through [facility]. She also has a history of arthritis, lumbar disk disease, prior hysterectomy, anemia and hypothyroidism. Her medications at home reportedly include Restoril, vitamin D supplements, Neurontin, omeprazole, Singulair, Xanax and Zoloft. ALLERGIES: IODINE AND MEPERIDINE. SOCIAL HISTORY: She does not smoke or drink. FAMILY HISTORY: Both parents from age-related illness. REVIEW OF SYSTEMS: The 10-point review of systems is otherwise unremarkable. States she is a fairly active and self sufficient at home. PHYSICAL EXAMINATION: GENERAL: She is a thin, very elderly woman. VITAL SIGNS: Her blood pressure is 120/60 with a pulse of 66 with atrial pacing and intermittent sinus rhythm, respirations are 14. She is afebrile. HEENT: No JVD. CHEST: Clear to auscultation and percussion. HEART: PMI in normal position. No pathological murmurs or gallops noted. ABDOMEN: Soft, nontender with normoactive bowel sounds. EXTREMITIES: No edema. She does have significant tenderness at her right rib cage and right arm and also, has a significant ecchymosis over her right maxilla. PSYCHIATRIC: Normal mood and affect. NEUROLOGIC: Alert and was x3. No gross motor or sensory deficits appreciable. DIAGNOSTIC DATA: White count 4.9, hemoglobin and hematocrit 10.9 and 35.4 with a platelet count of 262,000. PT/PTT 11.7 and 29.1, potassium 4.3, BUN and creatinine 9 and 0.6. Two sets cardiac enzymes are negative. Cholesterol is 123 with an LDL of 38 and HDL of 58. TSH 0.76. Echocardiogram reveals normal LV size with possible mild LV systolic dysfunction and mild tricuspid regurgitation. Chest x-ray reveals normal cardiac silhouette with aortic calcification and a dual-chamber pacemaker in place. IMPRESSION: 1. Recent fall, unclear if this was a syncopal event. 2. History of conduction system disease, status post permanent pacemaker with no evidence of pacemaker dysfunction seen on telemetry monitoring. 3. History of hypertension. 4. Mild anemia. 5. Osteoarthritis. RECOMMENDATIONS: Her current medications should be continued. Orthostatic vital signs will be checked. Continued pacemaker monitoring will be arranged through her primary purchasing clerk if she has no evidence of significant dysrhythmias on Telemetry monitoring. This can be discontinued later today. Fall precautions were reviewed with her. Thank you for this consultation. We will be happy to follow along as needed. Deonte Zarco MD [facility]
[2018-05-12 13:11] VITALS: BP 99/38; PULSE 61; TEMP 97.1
--- NOTE | 2018-05-12 14:53 | DS ---
FINAL PROGRESS NOTE AND DISCHARGE SUMMARY HISTORY OF PRESENT ILLNESS: The patient was seen in room 272, bed 1. The patient is out of bed to chair. The patient is alert, awake, responsive. The patient's condition and progress were discussed with the physical therapist. The patient ambulated 300 feet. According to the physical therapist, the patient did not offer any specific complaint except for chronic weight loss, which has been going on for months and years, regarding which I have advised the patient to contact and follow up with PMD and Gastroenterology and Hematology/Oncology. PHYSICAL EXAMINATION: VITAL SIGNS: T-max 98.8; telemetry shows sinus rhythm or paced rhythm; heart rate 65, 66, 72; blood pressure 148/65, 121/63, 128/59; respirations 20; O2 sat 96%. HEENT: Head examination normocephalic, atraumatic. HEENT examination shows positive right infraorbital discoloration and bluish discoloration. Oriental conjunctivae. Anicteric sclerae. No oropharyngeal lesion. Dry oral mucosa. NECK: No neck rigidity. CHEST: Kyphosis. Positive right upper chest pacemaker. LUNGS: Shows no rales, crackles or wheezing. CARDIOVASCULAR: S1, S2. Regular rhythm. ABDOMEN: Soft. Positive bowel sound. GENITALIA: Female. ABDOMEN: Soft. Positive bowel sound. EXTREMITIES: Shows no pitting edema, no calf tenderness, no Homans' sign. MUSCULOSKELETAL: Shows a body mass index of 16 and 17. NEUROLOGICAL: Motor strength is 5/5. Gait examination is independent. The patient is able to stand up without assistance from the chair in sitting position. PSYCHIATRIC: Positive for history of anxiety, depression, insomnia. DIAGNOSTICS: On 05/12/2018, WBC 4.9, hemoglobin and hematocrit 11 and 35.4, platelet 262. Differentials are normal. Sodium 140, potassium 4.3, chloride 104, CO2 of 28, anion gap 12, BUN 8, creatinine 0.6, GFR greater than 60, glucose 97, calcium 8.4, phosphorus 3.5, magnesium 2.2, iron 19, iron saturation 5, ferritin 7.7. LFTs are normal. Troponin all three sets are negative. Vitamin B12 of 843, folate 20, TSH 0.76, T4 of 9.6. RPR is nonreactive. Microbiology negative. Blood type AB positive. The patient's imaging studies were reviewed. Echo and EKG were reviewed. The patient was seen by Cardiology, ENT, Neurology and Orthopedics. Their recommendations were noted and reinforced to the patient. The patient was seen by the Physical Therapy for approval for TCU. The patient was seen by Technical Instructor. According to the Physical Therapy, the patient ambulated 300 feet. The patient's case was referred to [facility] for [facility] Transitional Care Unit approval. FINAL IMPRESSION, PLAN AND DISCHARGE DIAGNOSES: 1. Status post fall. 2. Questionable presyncope. 3. Right inferolateral hematoma 4. Dizziness. 5. History of permanent pacemaker implant with conduction system disease. 6. History of hypertension. Hypotension at present. 7. Normocytic iron-deficiency anemia. 8. Degenerative joint disease. 9. Right infraorbital and zygomatic and maxillary area contusion. 10. History of reactive airway disease. 11. Transient hypotension. 12. Dizziness secondary to transient vasovagal component and transient cerebral hypoperfusion with generalized weakness and deconditioning. 13. Transient granulocytosis. 14. History of insomnia, anxiety and depression. 1. Status post fall. 2. Dizziness, etiology undetermined. 3. Right facial contusion. 4. Precordial retrosternal chest pain, etiology undetermined. 5. Questionable hypotension. 6. Normocytic iron-deficiency anemia with granulocytosis. 7. Permanent pacemaker implant. 8. Degenerative joint disease of the right knee with tricompartmental narrowing with degenerative spurring and soft tissue swelling anterior to the patellar tendon. 9. Status post right upper chest permanent pacemaker implant. 10. Bilateral 20 to 39% proximal internal carotid artery stenosis. 11. Diffuse bone demineralization of the pelvic bones. 12. Right maxillary and zygomatic arch soft tissue swelling and focal hematoma. 13. 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 14. Gait dysfunction. 15. History of anxiety, depression, and insomnia. 16. Degenerative joint disease of the cervical spine with C5-C6 fusion. 17. Hypertensive cardiovascular disease. 18. Pulmonary hypertension with right ventricular systolic pressure of 46 mmHg. 19. Mildly impaired left ventricular systolic function with ejection fraction of 48%. 20. Grade 1 abnormal relaxation pattern. 21. Mild mitral regurgitation. 22. Moderate tricuspid regurgitation and moderate pulmonary hypertension. 23. Mildly impaired left ventricular systolic function with global left ventricular hypokinesis. 24. Moderate tricuspid regurgitation. Plan at this time, the patient is to be discharged to TCU if accepted. Otherwise, may discharge home with visiting nurse, home health aide, home PT after cleared by Cardiology, Neurology ENT and Orthopedics. Discharge meds as per updated ambulatory orders. Discharge medications are as follows, Xanax 0.25 at bedtime p.r.n., Ecotrin 81 mg daily, Drisdol 50,000 units weekly, Neurontin 100 mg twice a day, Singulair 10 mg daily, omeprazole 20 mg daily, Zoloft 100 mg daily, Restoril 30 mg at bedtime. In addition, the patient was also advised to follow up outpatient with Hematology and Gastroenterology for evaluation of weight loss. The patient was advised to outpatient followup with Hematology and Gastroenterology for weight loss evaluation. Time spent in the entire discharge process more than 45 minutes. Dictated and electronically signed, not read. Darrell Amos MD [facility]
[2018-05-12] MEDS: Sodium Chloride 0.9% 1,000 ML IV SCH (15:51)
== END 2018-05-12 16:00 | disposition home or self-care (01) ==
LOC: ED 22:49 → ERH 05-11 02:29 → 2RSO 05-11 03:32
PROVIDERS: ADMIT Internal Medicine; ATTEND Internal Medicine
DX: R42 Dizziness and giddiness (principal); S00.83XA Contusion of other part of head, initial encounter; W19.XXXA Unspecified fall, initial encounter; R07.2 Precordial pain; D50.9 Iron deficiency anemia, unspecified; M17.11 Unilateral primary osteoarthritis, right knee; I65.23 Occlusion and stenosis of bilateral carotid arteries; I27.20 Pulmonary hypertension, unspecified; I08.1 Rheumatic disorders of both mitral and tricuspid valves; I11.9 Hypertensive heart disease without heart failure; M47.816 Spondylosis without myelopathy or radiculopathy, lumbar region; E55.9 Vitamin D deficiency, unspecified; E86.0 Dehydration; F41.9 Anxiety disorder, unspecified; M81.0 Age-related osteoporosis without current pathological fracture; J45.909 Unspecified asthma, uncomplicated; G47.00 Insomnia, unspecified; Y92.009 Unspecified place in unspecified non-institutional (private) residence as the place of occurrence of the external cause; Z95.0 Presence of cardiac pacemaker
CPT/HCPCS: 36415; 70450; 70480; 71045; 72125; 72128; 72131; 72170; 73562; 80053; 80061; 82550; 82607; 82668; 82728; 82746; 83540; 83550; 83735; 83880; 84100; 84439; 84443; 84484; 85025; 85044; 85610; 85730; 86592; 86850; 86900; 93005; 93306; 93880; 96374; 97116; 97161; 97165; 97530; 97535; 99285; G0378; G8978; G8979; G8987; G8988; J1756; J2270; J7030

== ENCOUNTER 2018-09-07 23:38 | Inpatient (IN) | payer MEDICARE, OTHER ==
--- NOTE | 2018-09-08 00:02 | ED PDOC ---
Arrival/HPI - General Chief Complaint: Lower Extremity Problem/Injury Time Seen by Provider: 09/07/18 23:46 Historian: Patient, Family - History of Present Illness Narrative History of Present Illness (Text): 09/08/18 00:01 88 year old female, whose past medical history includes hypertension, Pacemaker for bradycardia, OA, Anxiety, Asthma, and left knee replacement, presents to the emergency department complaining of left leg pain that radiates up to the left hip. Patient is unable to walk without support. She reports taking Tylenol with no relief. Patient denies any fall or trauma to the left knee. The patient denies any fever, chills, chest pain, shortness of breath, abdominal pain, nausea, vomiting, diarrhea, urinary symptoms, back pain, neck pain, headache, dizziness, or any other complaints. PMD: Dr. Olrando Symptom Onset: Gradual Symptom Course: Unchanged Activities at Onset: Light Context: Home Past Medical History - Provider Review Nursing Documentation Reviewed: Yes - Infectious Disease Hx of Infectious Diseases: None - Reproductive Menopause: Yes - Cardiac Hx Cardiac Disorders: Yes Hx Hypertension: Yes - Pulmonary Hx Respiratory Disorders: Yes Hx Pneumonia: Yes Hx Tuberculosis: No - Neurological Hx Neurological Disorder: No - HEENT Hx Blind: Yes - Renal Hx Renal Disorder: No - Endocrine/Metabolic Hx Hypothyroidism: Yes - Hematological/Oncological Hx Blood Disorders: No - Integumentary Hx Dermatological Disorder: No - Musculoskeletal/Rheumatological Hx Arthritis: Yes - Gastrointestinal Hx Gastrointestinal Disorders: No Hx Vomiting: Yes - Genitourinary/Gynecological Hx Genitourinary Disorders: No - Psychiatric Hx Anxiety: Yes Hx Substance Use: No - Surgical History Hx Cardiac Catheterization: Yes (X4) Hx Eye Surgery: Yes Hx Hysterectomy: Yes Hx Orthopedic Surgery: Yes (LEFT TKR) - Anesthesia Hx Anesthesia: Yes Hx Anesthesia Reactions: No Hx Malignant Hyperthermia: No - Suicidal Assessment Feels Threatened In Home Enviroment: No Family/Social History - Physician Review Nursing Documentation Reviewed: Yes Family/Social History: No Known Family HX Smoking Status: Never Smoked Hx Alcohol Use: No Hx Substance Use: No Allergies/Home Meds Allergies/Adverse Reactions: Allergies iodine Allergy (Verified 09/08/18 14:23) ANAPHYLAXIS meperidine Allergy (Verified 09/08/18 14:23) VOMITING Home Medications: Home Meds Medication Instructions Recorded Confirmed RX: ALPRAZolam [Xanax] 0.25 mg PO HS PRN 01/21/17 09/07/18 RX: Ergocalciferol [Drisdol 50,000 1 cap PO QWK 01/21/17 09/07/18 Intl Units Cap] RX: Gabapentin [Neurontin] 100 mg PO BID 01/21/17 09/07/18 RX: Omeprazole 20 mg PO DAILY 01/21/17 09/07/18 RX: Sertraline [Zoloft] 100 mg PO DAILY 01/21/17 09/07/18 RX: Temazepam [Restoril] 30 mg PO HS 01/21/17 09/07/18 Review of Systems - Physician Review All systems were reviewed & negative as marked: Yes - Review of Systems Constitutional: absent: Fevers, Other (Chills) Respiratory: absent: SOB Cardiovascular: absent: Chest Pain Gastrointestinal: absent: Abdominal Pain, Diarrhea, Nausea, Vomiting Genitourinary Female: absent: Dysuria, Frequency, Hematuria Musculoskeletal: Other (left leg pain radiates to left hip). absent: Back Pain, Neck Pain Physical Exam Vital Signs Reviewed: Yes Vital Signs Temp Pulse Resp BP Pulse Ox 09/07/18 23:50 97.7 F 82 17 184/83 H 96 Temperature: Afebrile Blood Pressure: Hypertensive Pulse: Regular Respiratory Rate: Normal Appearance: Positive for: Well-Appearing, Non-Toxic, Comfortable Pain Distress: None Mental Status: Positive for: Alert and Oriented X 3 - Systems Exam Head: Present: Atraumatic, Normocephalic Pupils: Present: PERRL Extroacular Muscles: Present: EOMI Conjunctiva: Present: Normal Mouth: Present: Moist Mucous Membranes Neck: Present: Normal Range of Motion Respiratory/Chest: Present: Clear to Auscultation, Good Air Exchange. No: Respiratory Distress, Accessory Muscle Use Cardiovascular: Present: Regular Rate and Rhythm, Normal S1, S2. No: Murmurs Abdomen: No: Tenderness, Distention, Peritoneal Signs Back: Present: Normal Inspection Upper Extremity: Present: Normal Inspection. No: Cyanosis, Edema Lower Extremity: Present: Other (Pain with abduction of the left leg). No: Edema Neurological: Present: GCS=15, CN II-XII Intact, Speech Normal Skin: Present: Warm, Dry, Normal Color. No: Rashes Psychiatric: Present: Alert, Oriented x 3, Normal Insight, Normal Concentration Medical Decision Making ED Course and Treatment: 09/08/18 00:02 Impression: 88 year old female presents complaining of left leg pain that radiates up to the left hip. Plan: -- Labs -- Morphine, Toradol -- Femur left x-ray -- Hip left x-ray -- Knee left x-ray -- Duplex Lower Extremity left US -- Reassess and disposition Prior Visits: Notes and results from previous visits were reviewed. Progress Notes: 09/08/18 01:41 Femur left x-ray Impression: As read by me, negative Hip left x-ray Impression: As read by me, negative Knee left x-ray Impression: As read by me, negative 09/08/18 02:51 Duplex Lower Extremity left US Impression: Negative for DVT 09/08/18 03:52 Case discussed with medical coding instructor and Dr. Fahad Ballard who is aware and agrees with the plan. Accepts patient into hospitalist service. - Lab Interpretations I have reviewed the lab results: Yes - Scribe Statement The provider has reviewed the documentation as recorded by the [place] Provider Scribe Attestation: All medical record entries made by the Scribe were at my direction and personally dictated by me. I have reviewed the chart and agree that the record accurately reflects my personal performance of the history, physical exam, medical decision making, and the department course for this patient. I have also personally directed, reviewed, and agree with the discharge instructions and disposition. Disposition/Present on Arrival - Present on Arrival Any Indicators Present on Arrival: No History of DVT/PE: No History of Uncontrolled Diabetes: No Urinary Catheter: No History of Decub. Ulcer: No History Surgical Site Infection Following: None - Disposition Have Diagnosis and Disposition been Completed?: Yes Diagnosis: Leg pain, left, Intractable pain Disposition: HOSPITALIZED Disposition Time: 03:45 Condition: FAIR
[2018-09-08] MEDS ORDERED: Morphine 2 mg/ml ISec IVP STA ×3 (00:07→22:19)
[2018-09-08 00:46] LABS: EOS % 0.9 % (1.5-5.0); GRAN % 75.5 % (50.0-68.0); HEMOGLOBIN 12.5 g/dL (12.0-16.0); LYMPH % 14.9 % (22.0-35.0); MEAN CORPUSCULAR HEMOGLOBIN 25.4 pg (25.0-35.0); MEAN CORPUSCULAR HGB CONC 33.1 g/dl (31.0-37.0); MEAN PLATELET VOLUME 7.9 fl (7.0-11.0); MONO % 8.2 % (1.0-6.0); RBC 4.93 10^6/uL (3.5-6.1); RED CELL DISTRIBUTION WIDTH 15.8 % (11.5-14.5); WHITE BLOOD COUNT 6.5 10^3/uL (4.5-11.0)
[2018-09-08 00:47] LABS: BASO # 0.03 K/mm3 (0.0-2.0); BASO % 0.5 % (0.0-3.0); EOS # 0.1 (0.0-0.7); GRAN # 4.87 (1.4-6.5); MONO # 0.5 (0.1-0.6)
[2018-09-08 00:50] LABS: MEAN CELL VOLUME 76.7 fl (80.0-105.0)
[2018-09-08 00:53] LABS: ALB/GLOB RATIO 1.4 (1.1-1.8); ALBUMIN 3.9 g/dL (3.0-4.8); ALT/SGPT 17 U/L (7-56); AST/SGOT 35 U/L (14-36); BLOOD UREA NITROGEN 11 mg/dL (7-21); CALCIUM 8.5 mg/dL (8.4-10.5); GFR NON-AFRICAN AMERICAN > 60
--- NOTE | 2018-09-08 04:42 | CP.PCM.HP ---
History of Present Illness - History of Present Illness History of Present Illness: Lam Jauregui PGY1 History and Physical for Dr Felicita Ballard Pt is a 88 yo female with a PMH of HTN, Pacemaker for bradycardia, OA, Anxiety, Asthma, and left knee replacement (1991), presents to the ED complaining of a 3 day history of left leg pain that radiates up to the left hip. Patient is unable to walk without support. She reports taking Tylenol with no relief. Patient denies any fall or trauma to the left knee. Pt states she feels weak when she tries to stand. Pt states her knee has been swollen and stiff. She reports decreased ROM. The patient denies any fever, chills, chest pain, shortness of breath, abdominal pain, nausea, vomiting, or diarrhea. A 12 point ROS was obtained and added to the HPI. PMHx: HTN, Pacemaker for bradycardia, OA, Anxiety, Asthma PSHx: cataract surgery, L knee replacement Allergies: Iodine, Meperidine Social Hx: Denies alcohol, denies tobacco, denies illicit drug use. Lives alone FH: Mother 87 DM. Father 50, MVA Meds: Restoril 30 PO, Sertraline 100 PO, Omeprazole 20 PO, Montelukast 10, Gabapentin 100 BID, Ergocalciferol 50,000 units, Alprazolam 0.25 PO PMD: Dr. Orlando Present on Admission - Present on Admission Any Indicators Present on Admission: No Review of Systems - Review of Systems Review of Systems: a 12 point ROS was obtained and added to the HPI where appropriate Past Patient History - Infectious Disease Hx of Infectious Diseases: None - Past Medical History & Family History Past Medical History?: Yes - Past Social History Smoking Status: Never Smoked - CARDIAC Hx Cardiac Disorders: Yes Hx Hypertension: Yes - PULMONARY Hx Respiratory Disorders: Yes Hx Pneumonia: Yes Hx Tuberculosis: No - NEUROLOGICAL Hx Neurological Disorder: No - HEENT Hx Blind: Yes - RENAL Hx Chronic Kidney Disease: No - ENDOCRINE/METABOLIC Hx Hypothyroidism: Yes - HEMATOLOGICAL/ONCOLOGICAL Hx Blood Disorders: No - INTEGUMENTARY Hx Dermatological Problems: No - MUSCULOSKELETAL/RHEUMATOLOGICAL Hx Arthritis: Yes - GASTROINTESTINAL Hx Gastrointestinal Disorders: No Hx Vomiting: Yes - GENITOURINARY/GYNECOLOGICAL Hx Genitourinary Disorders: No - PSYCHIATRIC Hx Anxiety: Yes Hx Substance Use: No - SURGICAL HISTORY Hx Cardiac Catheterization: Yes (X4) Hx Eye Surgery: Yes Hx Hysterectomy: Yes Hx Orthopedic Surgery: Yes (LEFT TKR) - ANESTHESIA Hx Anesthesia: Yes Hx Anesthesia Reactions: No Hx Malignant Hyperthermia: No Meds Allergies/Adverse Reactions: Allergies Allergy/AdvReac Type Severity Reaction Status Date / Time iodine Allergy ANAPHYLAXIS Verified 09/07/18 23:53 meperidine Allergy VOMITING Verified 09/07/18 23:53 Physical Exam - Constitutional Appears: Non-toxic, No Acute Distress - Head Exam Head Exam: ATRAUMATIC, NORMAL INSPECTION, NORMOCEPHALIC - Eye Exam Eye Exam: EOMI, PERRL Pupil Exam: PERRL - ENT Exam ENT Exam: Mucous Membranes Moist, Normal Exam - Neck Exam Neck exam: Positive for: Full Rom - Respiratory Exam Respiratory Exam: Clear to Auscultation Bilateral, NORMAL BREATHING PATTERN. absent: Accessory Muscle Use, Wheezes, Respiratory Distress, Stridor - Cardiovascular Exam Cardiovascular Exam: +S1, +S2. absent: Diastolic murmur, Systolic Murmur Additional comments: pt has pacemaker in place right side of chest - GI/Abdominal Exam GI & Abdominal Exam: Normal Bowel Sounds, Soft. absent: Tenderness - Extremities Exam Extremities exam: Positive for: full ROM, pedal pulses present. Negative for: calf tenderness, pedal edema, tenderness Additional comments: pt reports pain on palpation, worse with movement, surgical scar present on left knee - Neurological Exam Neurological exam: Alert, CN II-XII Intact, Oriented x3 - Psychiatric Exam Psychiatric exam: Normal Affect, Normal Mood - Skin Skin Exam: Dry, Intact, Normal Color, Warm Results - Vital Signs Recent Vital Signs: Last Vital Signs Temp 97.7 F 09/07/18 23:50 Pulse 66 09/08/18 04:25 Resp 15 09/08/18 04:25 BP 143/79 09/08/18 04:25 Pulse Ox 100 09/08/18 04:25 - Labs Result Diagrams: 09/08/18 00:25 09/08/18 00:25 Labs: Laboratory Results - last 24 hr 09/08/18 09/08/18 00:25 00:25 WBC 6.5 RBC 4.93 Hgb 12.5 Hct 37.8 MCV 76.7 L D MCH 25.4 MCHC 33.1 RDW 15.8 H Plt Count 299 MPV 7.9 Gran % 75.5 H Lymph % (Auto) 14.9 L [place] % (Auto) 8.2 H Eos % (Auto) 0.9 L Baso % (Auto) 0.5 Gran # 4.87 Lymph # (Auto) 1.0 L [place] # (Auto) 0.5 Eos # (Auto) 0.1 Baso # (Auto) 0.03 Sodium 130 L Potassium 3.6 Chloride 95 L Carbon Dioxide 24 Anion Gap 15 BUN 11 Creatinine 0.5 L Est GFR ( Amer) > 60 Est GFR (Non-Af Amer) > 60 Random Glucose 116 H Calcium 8.5 Total Bilirubin 0.4 AST 35 ALT 17 Alkaline Phosphatase 78 Total Protein 6.8 Albumin 3.9 Globulin 2.9 Albumin/Globulin Ratio 1.4 Assessment & Plan - Assessment and Plan (Free Text) Assessment: Pt is a 88 yo female with a PMH of HTN, Pacemaker for bradycardia, OA, Anxiety, Asthma, and left knee replacement (1991), presents to the ED complaining of a 3 day history of left leg pain that radiates up to the left hip. Plan: Left Knee Pain - history of OA, Total knee replacement in 1991 - pain control, morphine 1mg IVP PRN Q6 - follow up LE US, Knee X-ray, Hip/Pelvis Xray, Femur Xray official reads - pt non compliant - ortho consulted, Dr Beckham HTN - hydralazine 10mg PRN Asthma - duonebs if needed Anxiety - continue xanax 0.25 Pt seen, examined, assessment and plan discussed with Dr Felicita Jauregui PGY1 - Date & Time Date: 09/08/18 Time: 04:42
[2018-09-08 06:20] LABS: URINE BILIRUBIN NEGATIVE (NEGATIVE); URINE BLOOD NEGATIVE (NEGATIVE); URINE GLUCOSE (UA) NEGATIVE (NEGATIVE); URINE LEUKOCYTE ESTERASE SMALL Leu/uL (NEGATIVE); URINE PROTEIN NEGATIVE mg/dL (<30 mg/dL); URINE UROBILINOGEN 0.2 E.U./dL (<1 E.U./dL)
[2018-09-08 06:21] LABS: URINE APPEARANCE SL CLOUDY (CLEAR); URINE COLOR YELLOW (YELLOW)
[2018-09-08 06:26] LABS: URINE BACTERIA SMALL (NEG); URINE RBC 0 - 2 /hpf (0-2)
[2018-09-08 08:11] LABS: BARBITURATES, UR NEGATIVE (NEGATIVE); BENZODIAZEPINES, UR POSITIVE (NEGATIVE); OPIATES, UR POSITIVE (NEGATIVE); PHENCYCLIDINE, UR NEGATIVE (NEGATIVE)
[2018-09-08 08:22] LABS: BASO # 0.05 K/mm3 (0.0-2.0); BASO % 0.8 % (0.0-3.0); EOS # 0.1 (0.0-0.7); EOS % 2.2 % (1.5-5.0); GRAN # 4.05 (1.4-6.5); GRAN % 62.1 % (50.0-68.0); HEMOGLOBIN 12.3 g/dL (12.0-16.0); LYMPH # 1.7 (1.2-3.4); LYMPH % 25.8 % (22.0-35.0); MEAN CELL VOLUME 76.6 fl (80.0-105.0); MEAN CORPUSCULAR HEMOGLOBIN 24.8 pg (25.0-35.0); MEAN CORPUSCULAR HGB CONC 32.4 g/dl (31.0-37.0); MEAN PLATELET VOLUME 8.2 fl (7.0-11.0); MONO # 0.6 (0.1-0.6); MONO % 9.1 % (1.0-6.0); RBC 4.96 10^6/uL (3.5-6.1); RED CELL DISTRIBUTION WIDTH 15.8 % (11.5-14.5); WHITE BLOOD COUNT 6.5 10^3/uL (4.5-11.0)
--- NOTE | 2018-09-08 08:56 | RAD ---
Date of service: 09/08/2018 HISTORY: cp COMPARISON: 05/11/2018 FINDINGS: LUNGS: No active pulmonary disease. PLEURA: No significant pleural effusion identified, no pneumothorax apparent. CARDIOVASCULAR: Aortic calcification Normal cardiac size. No pulmonary vascular congestion. OSSEOUS STRUCTURES: No significant abnormalities. VISUALIZED UPPER ABDOMEN: Normal. OTHER FINDINGS: Dual lead pacemaker IMPRESSION: No active disease.
[2018-09-08 08:59] LABS: ALB/GLOB RATIO 1.3 (1.1-1.8); ALBUMIN 3.5 g/dL (3.0-4.8); ALT/SGPT 20 U/L (7-56); AST/SGOT 20 U/L (14-36); BLOOD UREA NITROGEN 9 mg/dL (7-21); CALCIUM 8.3 mg/dL (8.4-10.5); GFR NON-AFRICAN AMERICAN > 60
--- NOTE | 2018-09-08 09:08 | RAD ---
PROCEDURE: Left Hip and pelvis x-ray Radiographs. HISTORY: pain COMPARISON: None. FINDINGS: BONES: Normal. No fracture. JOINTS: Normal. SOFT TISSUES: Normal. OTHER FINDINGS: Disc degeneration at L4-5. There is lateral subluxation of L4 relative to L5 IMPRESSION: No evidence of hip fracture
--- NOTE | 2018-09-08 09:09 | RAD ---
Date of service: 09/08/2018 PROCEDURE: Left knee HISTORY: pain COMPARISON: TECHNIQUE: Two views FINDINGS: Left knee prosthesis in satisfactory alignment. No fracture or loosening IMPRESSION: Negative study
--- NOTE | 2018-09-08 09:10 | RAD ---
Date of service: 09/08/2018 PROCEDURE: Left Femur Radiographs. HISTORY: pain COMPARISON: None. TECHNIQUE: AP and Lateral Radiographs of the left femur. FINDINGS: FEMUR: Normal. No fracture. SOFT TISSUES: Normal. OTHER FINDINGS: None. IMPRESSION: Unremarkable radiographs of the left femur.
--- NOTE | 2018-09-08 09:30 | US ---
PROCEDURE: Left lower extremity venous US HISTORY: Leg pain and swelling. Evaluate for DVT. PHYSICIAN(S): Luke Rebolledo MD. TECHNIQUE: Duplex sonography and color-flow Doppler with graded compression were used to evaluate the deep venous system of the left lower extremity. FINDINGS: The visualized deep venous system of the left lower extremity is sonographically normal and compressible. Normal wave forms and augmentation are seen. There is no sonographic evidence for deep venous thrombosis in the visualized segments of the left lower extremity. IMPRESSION: 1. No sonographic evidence for deep venous thrombosis in the visualized segments of the left lower extremity.
--- NOTE | 2018-09-08 10:09 | CARD ---
APPROVED REPORT Date of service: 09/08/2018 EKG Measurement Heart [id number] <Conclusion> Normal sinus rhythm Possible Left atrial enlargement Nonspecific T wave abnormality Abnormal ECG
[2018-09-08] MEDS: Pantoprazole 20 mg EC Tab PO SCH (10:55)
[2018-09-08] MEDS: Morphine 2 mg/ml ISec IVP PRN ×2 (11:15→17:31)
[2018-09-08 17:32] VITALS: BMI 16.5
[2018-09-08] MEDS ORDERED: Pneumococcal 23-Valent Vaccine IM ONE (17:32)
[2018-09-08] MEDS ORDERED: Influenza Vaccine 60 mcg/0.5 mL SYR (4YR UP) IM ONE (17:32)
[2018-09-09] MEDS: Morphine 2 mg/ml ISec IVP PRN ×3 (06:07→18:18)
[2018-09-09 06:53] LABS: BASO # 0.05 K/mm3 (0.0-2.0); BASO % 1.1 % (0.0-3.0); EOS # 0.2 (0.0-0.7); EOS % 3.3 % (1.5-5.0); GRAN # 2.68 (1.4-6.5); GRAN % 58.6 % (50.0-68.0); HEMOGLOBIN 11.9 g/dL (12.0-16.0); LYMPH # 1.2 (1.2-3.4); LYMPH % 25.4 % (22.0-35.0); MEAN CORPUSCULAR HEMOGLOBIN 24.8 pg (25.0-35.0); MEAN CORPUSCULAR HGB CONC 32.2 g/dl (31.0-37.0); MONO # 0.5 (0.1-0.6); MONO % 11.6 % (1.0-6.0); RBC 4.79 10^6/uL (3.5-6.1); WHITE BLOOD COUNT 4.6 10^3/uL (4.5-11.0)
[2018-09-09 06:57] LABS: ALB/GLOB RATIO 1.2 (1.1-1.8); ALBUMIN 3.3 g/dL (3.0-4.8); ALT/SGPT 24 U/L (7-56); AST/SGOT 21 U/L (14-36); BLOOD UREA NITROGEN 16 mg/dL (7-21); CALCIUM 8.7 mg/dL (8.4-10.5); GFR NON-AFRICAN AMERICAN > 60
[2018-09-09] MEDS: Pantoprazole 20 mg EC Tab PO SCH (08:58)
--- NOTE | 2018-09-09 13:57 | CP.PCM.CON ---
History of Present Illness - History of Present Illness History of Present Illness: Orthopedic consultation Dr. Beckham 88F complains of acute onset of left leg pain that started about 3 days ago. She says she can not walk due to the pain. She was able to walk prior to this onset. Denies any recent falls or trauma. Denies numbness/tingling/bowel or bladder changes. She says the pain is in her ankle and shoots all the way up to her hip. She has never had pain like this before. While lying in bed right now she has a little pain. Denies CP/SOB/dizziness/n/v/fever/chills. SHe had left TKR in 1991, no pain in her knee prior to this episode. Review of Systems - Review of Systems All systems: reviewed and no additional remarkable complaints except - Constitutional Constitutional: As Per HPI - Cardiovascular Cardiovascular: As Per HPI - Respiratory Respiratory: As Per HPI - Musculoskeletal Musculoskeletal: As Per HPI - Integumentary Integumentary: As Per HPI Additional comments: redness to toes - Neurological Neurological: As Per HPI - Hematologic/Lymphatic Hematologic: absent: As Per HPI, Easy Bleeding, Easy Bruising, Lymphadenopathy, Other Past Patient History - Infectious Disease Hx of Infectious Diseases: None - Past Medical History & Family History Past Medical History?: Yes Past Family History: Reviewed and not pertinent - Past Social History Smoking Status: Never Smoked - CARDIAC Hx Cardiac Disorders: Yes Hx Hypertension: Yes - PULMONARY Hx Respiratory Disorders: Yes Hx Pneumonia: Yes Hx Tuberculosis: No - NEUROLOGICAL Hx Neurological Disorder: No - HEENT Hx Blind: Yes - RENAL Hx Chronic Kidney Disease: No - ENDOCRINE/METABOLIC Hx Hypothyroidism: Yes - HEMATOLOGICAL/ONCOLOGICAL Hx Blood Disorders: No - INTEGUMENTARY Hx Dermatological Problems: No - MUSCULOSKELETAL/RHEUMATOLOGICAL Hx Arthritis: Yes - GASTROINTESTINAL Hx Gastrointestinal Disorders: No Hx Vomiting: Yes - GENITOURINARY/GYNECOLOGICAL Hx Genitourinary Disorders: No - PSYCHIATRIC Hx Anxiety: Yes Hx Substance Use: No - SURGICAL HISTORY Hx Cardiac Catheterization: Yes (X4) Hx Eye Surgery: Yes Hx Hysterectomy: Yes Hx Orthopedic Surgery: Yes (LEFT TKR) - ANESTHESIA Hx Anesthesia: Yes Hx Anesthesia Reactions: No Hx Malignant Hyperthermia: No Meds Allergies/Adverse Reactions: Allergies Allergy/AdvReac Type Severity Reaction Status Date / Time iodine Allergy ANAPHYLAXIS Verified 09/08/18 14:23 meperidine Allergy VOMITING Verified 09/08/18 14:23 - Medications Medications: Current Medications Alprazolam (Xanax) 0.25 mg PO DAILY [facility] [place]; Protocol Stop: 09/15/18 10:01 Last Admin: 09/09/18 09:11 Dose: 0.25 mg Aspirin (Ecotrin) 81 mg PO DAILY [facility] [place] Last Admin: 09/09/18 09:11 Dose: 81 mg Gabapentin (Neurontin) 100 mg PO BID [facility] [place]; Protocol Last Admin: 09/09/18 09:10 Dose: 100 mg Hydralazine HCl (Apresoline) 10 mg IVP ONCE PRN PRN Reason: Systolic Blood Pressure Montelukast Sodium (Singulair) 10 mg PO HS [facility] Last Admin: 09/08/18 22:13 Dose: 10 mg Morphine Sulfate (Morphine) 1 mg IVP Q6 PRN PRN Reason: Pain, moderate (4-7) Last Admin: 09/09/18 12:14 Dose: 1 mg Pantoprazole Sodium (Protonix Ec Tab) 20 mg PO ACB [facility] Last Admin: 09/09/18 08:58 Dose: 20 mg Sertraline HCl (Zoloft) 100 mg PO DAILY [facility] Last Admin: 09/09/18 09:11 Dose: 100 mg Physical Exam - Constitutional Appears: Well, No Acute Distress - Head Exam Head Exam: ATRAUMATIC - Neck Exam Neck exam: Positive for: Full Rom, Normal Inspection - Respiratory Exam Respiratory Exam: NORMAL BREATHING PATTERN - Cardiovascular Exam Additional comments: +DP/PT pulses B - Extremities Exam Extremities exam: Positive for: normal inspection - Expanded Lower Extremities Exam Left Hip exam: full ROM (complains of tenderness to deep hip palpation) Knee exam: full ROM (pain free, no swelling/effusion/erythema/discoloration. Stable to varus/valgus/raphael. Incision well healed. Non tender. Full AROM wihtout pain) Ankle exam: FULL ROM (complains of pain with ankle DF and great toe extension 4+/5 strength to both. Non tender to foot/lower leg) - Back Exam Additional comments: general tenderness to lumbar spine, mild negative SLR on left - Neurological Exam Neurological exam: Alert, Oriented x3 Additional comments: sensation intact BLE, however patient admits her left leg feels different over entire leg, feels like light touch is harder on left leg - Psychiatric Exam Psychiatric exam: Normal Mood Additional comments: easily tearful - Skin Skin Exam: Dry, Intact, Normal Color, Warm Additional comments: onychomycosis noted to toes, with mild erythema to great toes around nail bed no other erythema or lesions Results - Vital Signs Recent Vital Signs: Last Vital Signs Temp 98.1 F 09/09/18 08:16 Pulse 96 H 09/09/18 08:16 Resp 20 09/09/18 08:16 BP 135/72 09/09/18 08:16 Pulse Ox 96 09/09/18 08:16 - Labs Result Diagrams: 09/09/18 06:00 09/09/18 06:00 Labs: Laboratory Results - last 24 hr 09/08/18 09/09/18 09/09/18 22:18 06:00 06:00 WBC 4.6 D RBC 4.79 Hgb 11.9 L Hct 36.9 MCV 77.0 L MCH 24.8 L MCHC 32.2 RDW 16.0 H Plt Count 277 MPV 8.0 Gran % 58.6 Lymph % (Auto) 25.4 [place] % (Auto) 11.6 H Eos % (Auto) 3.3 Baso % (Auto) 1.1 Gran # 2.68 Lymph # (Auto) 1.2 [place] # (Auto) 0.5 Eos # (Auto) 0.2 Baso # (Auto) 0.05 Sodium 135 Potassium 4.4 Chloride 100 Carbon Dioxide 28 Anion Gap 11 BUN 16 Creatinine 0.7 Est GFR ( Amer) > 60 Est GFR (Non-Af Amer) > 60 POC Glucose (mg/dL) 114 H Random Glucose 104 Calcium 8.7 Total Bilirubin 0.2 AST 21 ALT 24 Alkaline Phosphatase 50 Total Protein 6.0 Albumin 3.3 Globulin 2.7 Albumin/Globulin Ratio 1.2 - EKG Data EKG comments: atient Name / ID : HATTIE ROSA / [id number] Exam Date : 05/11/2018 00:21:59 ( Approved ) Study Comment : Sex / Age : F / 88Y Creator : Ted Mcintyre MD Dictator : Ted Mcintyre MD Ditching Machine Engineer : Medical Device Assembler : Ted Mcintyre MD Approver2 : Report Date : 05/11/2018 09:50:14 My Comment : Date of service: 05/11/2018 PROCEDURE: CT Lumbar Spine without contrast HISTORY: fall, back pain COMPARISON: None. TECHNIQUE: Axial computed tomography images were obtained of the lumbar spine without the use of intravenous contrast. Coronal and sagittal reformatted images were created and reviewed. Radiation dose: Total exam DLP = 372 mGy-cm. This CT exam was performed using one or more of the following dose reduction techniques: Automated exposure control, adjustment of the mA and/or kV according to patient size, and/or use of iterative reconstruction technique. FINDINGS: VERTEBRAE: No evidence of compression fracture. There is scoliosis convex to the left with a Harvey angle of 34 degrees. DISCS/SPINAL CANAL/NEURAL FORAMINA: Multilevel disc degeneration PARASPINAL SOFT TISSUES: Unremarkable. OTHER FINDINGS: The report concurs with the preliminary [facility] report IMPRESSION: No acute findings - Impressions Impression: atient Name / ID : HATTIE ROSA / [id number] Exam Date : 09/08/2018 01:13:06 ( Approved ) Study Comment : Sex / Age : F / 88Y Creator : Ted Mcintyre MD Dictator : Ted Mcintyre MD Ditching Machine Engineer : Medical Device Assembler : Ted Mcintyre MD Approver2 : Report Date : 09/08/2018 09:06:45 My Comment : Date of service: 09/08/2018 PROCEDURE: Left Femur Radiographs. HISTORY: pain COMPARISON: None. TECHNIQUE: AP and Lateral Radiographs of the left femur. FINDINGS: FEMUR: Normal. No fracture. SOFT TISSUES: Normal. OTHER FINDINGS: None. IMPRESSION: Unremarkable radiographs of the left femur. xam Date : 09/08/2018 00:14:22 ( Approved ) Study Comment : Sex / Age : F Y Creator : Ted Mcintyre MD Dictator : Ted Mcintyre MD Ditching Machine Engineer : Medical Device Assembler : Ted Mcintyre MD Approver2 : Report Date : 09/08/2018 09:04:38 My Comment : PROCEDURE: Left Hip and pelvis x-ray Radiographs. HISTORY: pain COMPARISON: None. FINDINGS: BONES: Normal. No fracture. JOINTS: Normal. SOFT TISSUES: Normal. OTHER FINDINGS: Disc degeneration at L4-5. There is lateral subluxation of L4 relative to L5 IMPRESSION: No evidence of hip fracture atient Name / ID : HATTIE ROSA / [id number] Exam Date : 09/08/2018 01:13:03 ( Approved ) Study Comment : Sex / Age : Y Creator : Ted Mcintyre MD Dictator : Ted Mcintyre MD Ditching Machine Engineer : Medical Device Assembler : Ted Mcintyre MD Approver2 : Report Date : 09/08/2018 09:05:56 My Comment : Date of service: 09/08/2018 PROCEDURE: Left knee HISTORY: pain COMPARISON: TECHNIQUE: Two views FINDINGS: Left knee prosthesis in satisfactory alignment. No fracture or loosening IMPRESSION: Negative study Assessment & Plan (1) Lumbosacral spondylosis with radiculopathy Assessment and Plan: no evidence that this pain is at all related to left total knee replacement. Benign in clinical appearance, full ROM, non tender and no evidence of radiographic loosening, well positioned Pain appears to be referred pain, noted CT of lumbar spine from 05/2018 and hip xrays from this admission shows significant spondylosis of lower lumbar spine and lateral subluxation to left of L5 on S1. No orthopedic intervention indicated. Will get CT of lumbar spine to compare to prior exam for any acute changes or fracture. Recommend spine consultation/neurosurgery as this is outside of scope of practice of Dr. Beckham. d/w Dr. Beckham, agrees with above Status: Acute (2) Scoliosis Assessment and Plan: [address] from 05/2018 Status: Acute
--- NOTE | 2018-09-09 18:20 | CP.PCM.PN ---
<Felix Ulrich - Last Filed: 09/09/18 18:17> Subjective - Date & Time of Evaluation Date of Evaluation: 09/09/18 Time of Evaluation: 07:00 - Subjective Subjective: Felix Ulrich, PGY1 Medicine Progress Note for Dr. Lee Patient was seen and examined at bedside this morning. She is still c/o her left leg pain. She also has upper and low back pain. Hip/pelvic pain is also present with radiation to both legs. Son was present at bedside and explained that patient has been exerting herself (lifting garbage cans and doing household cho res) and this may be attributable to the pain. Patient was tearful during interview. Denies cp, sob, n/v/d, fevers, chills, dizziness. A full 12 point ROS was conducted and unremarkable except as stated above. Objective - Vital Signs/Intake and Output Vital Signs (last 24 hours): Temp Pulse Resp BP Pulse Ox 99.2 F 64 20 121/45 L 98 09/09/18 17:26 09/09/18 17:26 09/09/18 17:26 09/09/18 17:26 09/09/18 17:26 Intake and Output: 09/09/18 09/09/18 06:59 18:59 Intake Total 120 Output Total 700 Balance -580 - Medications Medications: Current Medications Alprazolam (Xanax) 0.25 mg PO DAILY [facility]; Protocol Stop: 09/15/18 10:01 Last Admin: 09/09/18 09:11 Dose: 0.25 mg Aspirin (Ecotrin) 81 mg PO DAILY [facility] Last Admin: 09/09/18 09:11 Dose: 81 mg Gabapentin (Neurontin) 100 mg PO BID [facility]; Protocol Last Admin: 09/09/18 17:10 Dose: 100 mg Hydralazine HCl (Apresoline) 10 mg IVP ONCE PRN PRN Reason: Systolic Blood Pressure Montelukast Sodium (Singulair) 10 mg PO HS [facility] Last Admin: 09/08/18 22:13 Dose: 10 mg Morphine Sulfate (Morphine) 1 mg IVP Q6 PRN PRN Reason: Pain, moderate (4-7) Last Admin: 09/09/18 12:14 Dose: 1 mg Pantoprazole Sodium (Protonix Ec Tab) 20 mg PO ACB [facility] Last Admin: 09/09/18 08:58 Dose: 20 mg Sertraline HCl (Zoloft) 100 mg PO DAILY [facility] Last Admin: 09/09/18 09:11 Dose: 100 mg - Labs Labs: 09/09/18 06:00 09/09/18 06:00 - Constitutional Appears: No Acute Distress - Eye Exam Eye Exam: EOMI, Normal appearance, PERRL - ENT Exam ENT Exam: Mucous Membranes Moist, Normal Exam - Neck Exam Neck Exam: Full ROM, Normal Inspection. absent: Lymphadenopathy - Respiratory Exam Respiratory Exam: Clear to Ausculation Bilateral, NORMAL BREATHING PATTERN. absent: Rales, Rhonchi, Wheezes - Cardiovascular Exam Cardiovascular Exam: REGULAR RHYTHM, +S1, +S2. absent: Murmur - GI/Abdominal Exam GI & Abdominal Exam: Soft, Normal Bowel Sounds. absent: Tenderness - Extremities Exam Extremities Exam: Normal Capillary Refill, Tenderness. absent: Pedal Edema - Back Exam Back Exam: tenderness - Neurological Exam Neurological Exam: Alert, Awake, Oriented x3 Neuro motor strength exam: Left Upper Extremity: 5, Right Upper Extremity: 5, Left Lower Extremity: 3, Right Lower Extremity: 4 - Psychiatric Exam Additional comments: Tearful - Skin Skin Exam: Dry, Intact, Normal Color, Warm Assessment and Plan - Assessment and Plan (Free Text) Assessment: Pt is a 88 yo female with a PMH of HTN, Pacemaker for bradycardia, OA, Anxiety, Asthma, and left knee replacement (1991), presents to the ED complaining of a 3 day history of left leg pain with associated hip and back pain. Plan: Intractable Left Leg Pain with associated pelvic and low back pain 2/2 Lumbosacral Spondylosis - Ortho was consulted. Recommendations appreciated. No intervention at this time. Will obtain CT lubar spine and recommend neurosurgery consult. - neurosurgery consulted - PT - c/w morphine 1mg q6 prn for pain control - Femur XR: negative - Hip/Pelvis XR: negative - L Knee XR: negative for acute changes. Left knee prosthesis noted. - Lower ext US: no DVT - Denies recent trauma or fall - c/w Gabapentin HTN - BP stable at this time - c/w hydralazine 10mg PRN Asthma - duonebs if needed Anxiety - continue xanax 0.25 GI ppx: PTX Dispo: Patient receiving PT. As per PT, patient will benefit from TCU. Case was discussed and reviewed with Attending Physician, Dr. Lee. <Steffanie Lee - Last Filed: 09/10/18 06:58> Objective - Vital Signs/Intake and Output Vital Signs (last 24 hours): Temp Pulse Resp BP Pulse Ox 99.2 F 64 20 121/45 L 98 09/09/18 17:26 09/09/18 17:26 09/09/18 17:26 09/09/18 17:26 09/09/18 17:26 Intake and Output: 09/09/18 09/10/18 18:59 06:59 Intake Total 120 Balance 120 - Medications Medications: Current Medications Alprazolam (Xanax) 0.25 mg PO DAILY [facility]; Protocol Stop: 09/15/18 10:01 Last Admin: 09/09/18 09:11 Dose: 0.25 mg Aspirin (Ecotrin) 81 mg PO DAILY [facility] Last Admin: 09/09/18 09:11 Dose: 81 mg Gabapentin (Neurontin) 100 mg PO BID [facility]; Protocol Last Admin: 09/09/18 17:10 Dose: 100 mg Hydralazine HCl (Apresoline) 10 mg IVP ONCE PRN PRN Reason: Systolic Blood Pressure Montelukast Sodium (Singulair) 10 mg PO HS [facility] Last Admin: 09/09/18 21:11 Dose: 10 mg Morphine Sulfate (Morphine) 1 mg IVP Q6 PRN PRN Reason: Pain, moderate (4-7) Last Admin: 09/10/18 04:20 Dose: 1 mg Pantoprazole Sodium (Protonix Ec Tab) 20 mg PO ACB [facility] Last Admin: 09/09/18 08:58 Dose: 20 mg Sertraline HCl (Zoloft) 100 mg PO DAILY [facility] Last Admin: 09/09/18 09:11 Dose: 100 mg - Labs Labs: 09/09/18 06:00 09/09/18 06:00 Attending/Attestation - Attestation I have personally seen and examined this patient.: Yes I have fully participated in the care of the patient.: Yes I have reviewed all pertinent clinical information, including history, physical exam and plan: Yes Notes (Text): 09/09/18 88 year old female with past medical history of hypertension, bradycardia s/p PPM, asthma, anxiety and left knee replacement who presented with complaint of left leg pain x 3 days associated with knee, hip and back. Xrays were negative for fracture. Orthopedics evaluation was appreciated who recommended NS evaluation and ct lumbar spine which is ordered. Continue with analgesics prn. Continue with physical therapy; currently recommending TCU. Son is at bedside and questions were answered. Steffanie Lee MD Hospitalist.
[2018-09-10] MEDS: Morphine 2 mg/ml ISec IVP PRN ×3 (04:20→21:05)
[2018-09-10 07:17] LABS: BASO # 0.04 K/mm3 (0.0-2.0); BASO % 0.8 % (0.0-3.0); EOS # 0.2 (0.0-0.7); EOS % 3.3 % (1.5-5.0); GRAN # 2.76 (1.4-6.5); GRAN % 56.3 % (50.0-68.0); HEMOGLOBIN 12.4 g/dL (12.0-16.0); LYMPH # 1.3 (1.2-3.4); LYMPH % 26.5 % (22.0-35.0); MEAN CELL VOLUME 78.7 fl (80.0-105.0); MEAN CORPUSCULAR HEMOGLOBIN 24.9 pg (25.0-35.0); MEAN CORPUSCULAR HGB CONC 31.7 g/dl (31.0-37.0); MEAN PLATELET VOLUME 8.1 fl (7.0-11.0); MONO # 0.6 (0.1-0.6); MONO % 13.1 % (1.0-6.0); RBC 4.97 10^6/uL (3.5-6.1); RED CELL DISTRIBUTION WIDTH 16.4 % (11.5-14.5); WHITE BLOOD COUNT 4.9 10^3/uL (4.5-11.0)
[2018-09-10 07:33] LABS: ALB/GLOB RATIO 1.3 (1.1-1.8); ALBUMIN 3.6 g/dL (3.0-4.8); ALT/SGPT 20 U/L (7-56); AST/SGOT 30 U/L (14-36); BLOOD UREA NITROGEN 19 mg/dL (7-21); CALCIUM 8.6 mg/dL (8.4-10.5); GFR NON-AFRICAN AMERICAN > 60
[2018-09-10] MEDS: Pantoprazole 20 mg EC Tab PO SCH (10:07)
--- NOTE | 2018-09-10 14:01 | CT ---
Date of service: 09/09/2018 PROCEDURE: CT Lumbar Spine without contrast HISTORY: acute LLE pain r/o radiculopathy/acute injury COMPARISON: None available. TECHNIQUE: Axial computed tomography images were obtained of the lumbar spine without the use of intravenous contrast. Coronal and sagittal reformatted images were created and reviewed. Radiation dose: Total exam DLP = 272.37 mGy-cm. This CT exam was performed using one or more of the following dose reduction techniques: Automated exposure control, adjustment of the mA and/or kV according to patient size, and/or use of iterative reconstruction technique. FINDINGS: VERTEBRAE: Scoliosis convex to the left with a Harvey angle of 30 degrees. No evidence of vertebral compression fracture. DISCS/SPINAL CANAL/NEURAL FORAMINA: L1-2: Disc degeneration. Bony sclerosis. L2-3: Mild disc bulge L3-4: Mild disc bulge L4-5: Severe disc degeneration and facet arthropathy with severe spinal stenosis. Central disc herniation extending superiorly. L5-S1: Severe left-sided foraminal stenosis PARASPINAL SOFT TISSUES: Extensive aortic calcification OTHER FINDINGS: The report concurs with the preliminary [facility] report IMPRESSION: Severe multilevel degenerative changes. Severe spinal stenosis at L4-5. Left-sided foraminal stenosis at L5-S1
--- NOTE | 2018-09-10 17:43 | CP.PCM.PN ---
<Felix Ulrich - Last Filed: 09/10/18 17:39> Subjective - Date & Time of Evaluation Date of Evaluation: 09/10/18 Time of Evaluation: 07:00 - Subjective Subjective: Felix Ulrich, PGY1 Medicine Progress Note for Dr. Lee Patient was seen and examined at bedside this morning. Patient's level of pain is unchanged from yesterday's interview. She still c/o left leg, pelvic, and low back pain. Denied cp, sob, abdominal pain, n/v/d, lightheadedness, dizziness. Vital signs stable, no fevers overnight. Patient tolerated PT well yesterday. Patient was tearful on exam. A full 12 point ROS was conducted and unremarkable except as stated above. Objective - Vital Signs/Intake and Output Vital Signs (last 24 hours): Temp Pulse Resp BP Pulse Ox 98.3 F 66 18 155/61 H 96 09/10/18 17:14 09/10/18 17:14 09/10/18 17:14 09/10/18 17:14 09/10/18 17:14 Intake and Output: 09/10/18 09/10/18 06:59 18:59 Intake Total 120 Balance 120 - Medications Medications: Current Medications Alprazolam (Xanax) 0.25 mg PO DAILY [facility]; Protocol Stop: 09/15/18 10:01 Last Admin: 09/10/18 10:07 Dose: 0.25 mg Aspirin (Ecotrin) 81 mg PO DAILY [facility] Last Admin: 09/10/18 10:06 Dose: 81 mg Gabapentin (Neurontin) 100 mg PO BID [facility]; Protocol Last Admin: 09/10/18 17:23 Dose: 100 mg Hydralazine HCl (Apresoline) 10 mg IVP ONCE PRN PRN Reason: Systolic Blood Pressure Montelukast Sodium (Singulair) 10 mg PO HS [facility] Last Admin: 09/09/18 21:11 Dose: 10 mg Morphine Sulfate (Morphine) 1 mg IVP Q6 PRN PRN Reason: Pain, moderate (4-7) Last Admin: 09/10/18 14:46 Dose: 1 mg Pantoprazole Sodium (Protonix Ec Tab) 20 mg PO ACB [facility] Last Admin: 09/10/18 10:07 Dose: 20 mg Sertraline HCl (Zoloft) 100 mg PO DAILY [facility] Last Admin: 09/10/18 10:08 Dose: 100 mg - Labs Labs: 09/10/18 06:00 09/10/18 06:00 - Constitutional Appears: No Acute Distress - Head Exam Head Exam: ATRAUMATIC, NORMAL INSPECTION, NORMOCEPHALIC - Eye Exam Eye Exam: EOMI, Normal appearance, PERRL Pupil Exam: NORMAL ACCOMODATION, PERRL - ENT Exam ENT Exam: Mucous Membranes Moist, Normal Exam - Respiratory Exam Respiratory Exam: Clear to Ausculation Bilateral, NORMAL BREATHING PATTERN. absent: Rales, Rhonchi, Wheezes - Cardiovascular Exam Cardiovascular Exam: REGULAR RHYTHM, +S1, +S2. absent: Murmur - GI/Abdominal Exam GI & Abdominal Exam: Soft, Normal Bowel Sounds. absent: Tenderness - Extremities Exam Extremities Exam: Normal Capillary Refill, Tenderness. absent: Calf Tenderness, Pedal Edema - Back Exam Back Exam: paraspinal tenderness, tenderness - Neurological Exam Neurological Exam: Alert, Awake, CN II-XII Intact, Oriented x3 Neuro motor strength exam: Left Upper Extremity: 5, Right Upper Extremity: 5, Left Lower Extremity: 4, Right Lower Extremity: 4 - Psychiatric Exam Additional comments: Tearful on exam. Hx of anxiety. - Skin Skin Exam: Dry, Intact, Normal Color, Warm Assessment and Plan - Assessment and Plan (Free Text) Assessment: Pt is a 88 yo female with a PMH of HTN, Pacemaker for bradycardia, OA, Anxiety, Asthma, and left knee replacement (1991), presents to the ED complaining of a 3 day history of left leg pain with associated hip and back pain. Plan: Intractable Left Leg Pain with associated pelvic and low back pain 2/2 Lumbosacral Spondylosis - CT lumbar spine: severe multilevel degenerative changes. Severe spinal reinaldo nosis at L4-L5. L-sided foraminal stenosis at L5-S1. - Possible epidural tomorrow - Ortho was consulted. Recommendations appreciated. No intervention at this time. Recommend neurosurgery consult. - neurosurgery consulted - PT recommends TCU. - c/w morphine 1mg q6 prn for pain control - Femur XR: negative - Hip/Pelvis XR: negative - L Knee XR: negative for acute changes. Left knee prosthesis noted. - Lower ext US: no DVT - Denies recent trauma or fall - c/w Gabapentin HTN - BP stable at this time - c/w hydralazine 10mg PRN Asthma - duonebs if needed Anxiety - continue xanax 0.25 GI ppx: PTX Dispo: Possible epidural tomorrow. PT recommends TCU. As per case management, patient accepted to TCU. Case was discussed and reviewed with Attending Physician, Dr. Lee. <Steffanie Lee - Last Filed: 09/10/18 18:58> Objective - Vital Signs/Intake and Output Vital Signs (last 24 hours): Temp Pulse Resp BP Pulse Ox 98.3 F 66 18 155/61 H 96 09/10/18 17:14 09/10/18 17:14 09/10/18 17:14 09/10/18 17:14 09/10/18 17:14 Intake and Output: 09/10/18 09/10/18 06:59 18:59 Intake Total 120 1160 Output Total 400 Balance 120 760 - Medications Medications: Current Medications Alprazolam (Xanax) 0.25 mg PO DAILY [facility]; Protocol Stop: 09/15/18 10:01 Last Admin: 09/10/18 10:07 Dose: 0.25 mg Aspirin (Ecotrin) 81 mg PO DAILY [facility] Last Admin: 09/10/18 10:06 Dose: 81 mg Gabapentin (Neurontin) 100 mg PO BID [facility]; Protocol Last Admin: 09/10/18 17:23 Dose: 100 mg Hydralazine HCl (Apresoline) 10 mg IVP ONCE PRN PRN Reason: Systolic Blood Pressure Montelukast Sodium (Singulair) 10 mg PO HS [facility] Last Admin: 09/09/18 21:11 Dose: 10 mg Morphine Sulfate (Morphine) 1 mg IVP Q6 PRN PRN Reason: Pain, moderate (4-7) Last Admin: 09/10/18 14:46 Dose: 1 mg Pantoprazole Sodium (Protonix Ec Tab) 20 mg PO ACB [facility] Last Admin: 09/10/18 10:07 Dose: 20 mg Sertraline HCl (Zoloft) 100 mg PO DAILY [facility] Last Admin: 09/10/18 10:08 Dose: 100 mg - Labs Labs: 09/10/18 06:00 09/10/18 06:00 Attending/Attestation - Attestation I have personally seen and examined this patient.: Yes I have fully participated in the care of the patient.: Yes I have reviewed all pertinent clinical information, including history, physical exam and plan: Yes Notes (Text): 09/10/18 18:57 88 year old female with past medical history of hypertension, bradycardia s/p PPM, asthma, anxiety and left knee replacement who presented with complaint of left leg pain x 3 days associated with knee, hip and back. Xrays were negative for fracture. Orthopedics evaluation was appreciated who recommended NS evaluation. CT lumbar spine was obtained today which shows severe multilevel degenerative disc disease and severe spinal stenosis at L4-L5. Continue with analgesics prn. Continue with physical therapy; currently recommending TCU. Will follow up with NS recommendations. Steffanie Lee MD Hospitalist.
--- NOTE | 2018-09-10 18:26 | CP.PCM.PN ---
Subjective - Date & Time of Evaluation Date of Evaluation: 09/10/18 Time of Evaluation: 18:30 - Subjective Subjective: Anesthesiology pain management consullt. 88 year old female with low back pain affecting the left side sometimes radiating to the left ankle. CT scan of the lumbar spine without contrast revealed severe spinal stenosis at l4-5.This is possible lumbar radiculopathy.Reccomend MRI of the Lumbar and Thoracic spine. continue morphine for severe pain. Percocet for moderate pain. Tylenol 3 for mild pain.Lidoderm patch daily. follw up at [facility] pain clinic , which is every Thursday ,either with DR. GARCIA , or DR. CRUZ.Likewise follow up with Neurosurgery Jj Villarreal. Objective - Vital Signs/Intake and Output Vital Signs (last 24 hours): Temp Pulse Resp BP Pulse Ox 98.3 F 66 18 155/61 H 96 09/10/18 17:14 09/10/18 17:14 09/10/18 17:14 09/10/18 17:14 09/10/18 17:14 Intake and Output: 09/10/18 09/10/18 06:59 18:59 Intake Total 120 Balance 120 - Medications Medications: Current Medications Alprazolam (Xanax) 0.25 mg PO DAILY [facility]; Protocol Stop: 09/15/18 10:01 Last Admin: 09/10/18 10:07 Dose: 0.25 mg Aspirin (Ecotrin) 81 mg PO DAILY [facility] Last Admin: 09/10/18 10:06 Dose: 81 mg Gabapentin (Neurontin) 100 mg PO BID [facility]; Protocol Last Admin: 09/10/18 17:23 Dose: 100 mg Hydralazine HCl (Apresoline) 10 mg IVP ONCE PRN PRN Reason: Systolic Blood Pressure Montelukast Sodium (Singulair) 10 mg PO HS [facility] Last Admin: 09/09/18 21:11 Dose: 10 mg Morphine Sulfate (Morphine) 1 mg IVP Q6 PRN PRN Reason: Pain, moderate (4-7) Last Admin: 09/10/18 14:46 Dose: 1 mg Pantoprazole Sodium (Protonix Ec Tab) 20 mg PO ACB [facility] Last Admin: 09/10/18 10:07 Dose: 20 mg Sertraline HCl (Zoloft) 100 mg PO DAILY [facility] Last Admin: 09/10/18 10:08 Dose: 100 mg - Labs Labs: 09/10/18 06:00 09/10/18 06:00
[2018-09-11] MEDS: Morphine 2 mg/ml ISec IVP PRN ×3 (02:27→21:48)
[2018-09-11 07:07] LABS: BASO # 0.05 K/mm3 (0.0-2.0); EOS # 0.2 (0.0-0.7); EOS % 3.9 % (1.5-5.0); GRAN # 3.01 (1.4-6.5); GRAN % 58.4 % (50.0-68.0); HEMOGLOBIN 11.8 g/dL (12.0-16.0); LYMPH # 1.4 (1.2-3.4); LYMPH % 26.2 % (22.0-35.0); MEAN CELL VOLUME 78.9 fl (80.0-105.0); MEAN CORPUSCULAR HEMOGLOBIN 24.6 pg (25.0-35.0); MEAN CORPUSCULAR HGB CONC 31.2 g/dl (31.0-37.0); MONO # 0.5 (0.1-0.6); MONO % 10.5 % (1.0-6.0); RBC 4.79 10^6/uL (3.5-6.1); RED CELL DISTRIBUTION WIDTH 16.2 % (11.5-14.5); WHITE BLOOD COUNT 5.2 10^3/uL (4.5-11.0)
[2018-09-11 07:40] LABS: BLOOD UREA NITROGEN 17 mg/dL (7-21)
[2018-09-11 07:41] LABS: ALB/GLOB RATIO 1.2 (1.1-1.8); ALBUMIN 3.2 g/dL (3.0-4.8); ALT/SGPT 10 U/L (7-56); AST/SGOT 25 U/L (14-36); CALCIUM 8.3 mg/dL (8.4-10.5); GFR NON-AFRICAN AMERICAN > 60
[2018-09-11] MEDS: Pantoprazole 20 mg EC Tab PO SCH (09:43)
[2018-09-11 16:42] VITALS: O2SAT 96
[2018-09-11] MEDS: POLYETHYLENE GLYCOL 3350 17 GM/Dose PACKET PO SCH (17:11)
--- NOTE | 2018-09-11 18:09 | CP.PCM.PN ---
<Felix Ulrich - Last Filed: 09/11/18 18:05> Subjective - Date & Time of Evaluation Date of Evaluation: 09/11/18 Time of Evaluation: 07:00 - Subjective Subjective: Felix Ulrich, PGY1 Medicine Progress Note for Dr. Lee Patient seen and examined at bedside this morning. Vital signs stable. Patient said that she refuses to have epidural. Patient still has similar complaints of chronic leg, pelvic, and low back pain. She is not tearful on exam. Patient is constipated and said she has not had a bowel movement in almost a week. Denies cp, sob, n/v/d, numbness and tingling, fever, chills. A full 12 point ROS conducted and unremarkable except as stated above Objective - Vital Signs/Intake and Output Vital Signs (last 24 hours): Temp Pulse Resp BP Pulse Ox 98.1 F 67 20 136/59 L 96 09/11/18 16:41 09/11/18 16:41 09/11/18 16:41 09/11/18 16:41 09/11/18 16:41 Intake and Output: 09/11/18 09/11/18 06:59 18:59 Intake Total 120 Balance 120 - Medications Medications: Current Medications Alprazolam (Xanax) 0.25 mg PO DAILY [facility]; Protocol Stop: 09/15/18 10:01 Last Admin: 09/11/18 09:43 Dose: 0.25 mg Aspirin (Ecotrin) 81 mg PO DAILY [facility] Last Admin: 09/11/18 09:42 Dose: 81 mg Docusate Sodium (Colace) 100 mg PO DAILY [facility] Last Admin: 09/11/18 17:10 Dose: 100 mg Gabapentin (Neurontin) 100 mg PO BID [facility]; Protocol Last Admin: 09/11/18 17:11 Dose: 100 mg Hydralazine HCl (Apresoline) 10 mg IVP ONCE PRN PRN Reason: Systolic Blood Pressure Montelukast Sodium (Singulair) 10 mg PO HS [facility] Last Admin: 09/10/18 21:05 Dose: 10 mg Morphine Sulfate (Morphine) 1 mg IVP Q6 PRN PRN Reason: Pain, moderate (4-7) Last Admin: 09/11/18 15:31 Dose: 1 mg Pantoprazole Sodium (Protonix Ec Tab) 20 mg PO ACB [facility] Last Admin: 09/11/18 09:43 Dose: 20 mg Polyethylene Glycol (Miralax) 17 gm PO BID [facility] Last Admin: 09/11/18 17:11 Dose: 17 gm Sertraline HCl (Zoloft) 100 mg PO DAILY [facility] Last Admin: 09/11/18 09:43 Dose: 100 mg - Labs Labs: 09/11/18 06:00 09/11/18 06:00 - Constitutional Appears: No Acute Distress - Head Exam Head Exam: ATRAUMATIC, NORMAL INSPECTION, NORMOCEPHALIC - Eye Exam Eye Exam: EOMI, Normal appearance, PERRL Pupil Exam: NORMAL ACCOMODATION, PERRL - ENT Exam ENT Exam: Mucous Membranes Moist, Normal Exam - Respiratory Exam Respiratory Exam: Clear to Ausculation Bilateral, NORMAL BREATHING PATTERN. absent: Rales, Rhonchi, Wheezes - Cardiovascular Exam Cardiovascular Exam: REGULAR RHYTHM, +S1, +S2. absent: Murmur - GI/Abdominal Exam GI & Abdominal Exam: Soft, Normal Bowel Sounds. absent: Tenderness - Extremities Exam Extremities Exam: Tenderness. absent: Full ROM, Joint Swelling - Back Exam Back Exam: tenderness - Neurological Exam Neurological Exam: Alert, Awake, Oriented x3 - Skin Skin Exam: Dry, Intact, Normal Color, Warm Assessment and Plan - Assessment and Plan (Free Text) Assessment: Pt is a 88 yo female with a PMH of HTN, Pacemaker for bradycardia, OA, Anxiety, Asthma, and left knee replacement (1991), presents to the ED complaining of a 3 day history of left leg pain with associated hip and back pain. Patient is admitted for Intractable left leg pain with associated pelvic/low back pain 2/2 lumbosacral spondylosis. Plan: Intractable Left Leg Pain with associated pelvic and low back pain 2/2 Lumbosacral Spondylosis - Patient is refusing epidural. Contacted Dr. Cresencio Dickson about patient's refusal, pending response/recommendation. - PMR consulted (Dr. Gómez), f/u recs - Neurosurg consulted ([facility]), f/u recs - CT lumbar spine: severe multilevel degenerative changes. Severe spinal stenosis at L4-L5. L-sided foraminal stenosis at L5-S1. - Ortho was consulted. Recommendations appreciated. No intervention at this time. Recommend neurosurgery consult. - PT recommends TCU. - c/w morphine 1mg q6 prn for pain control - Femur XR: negative - Hip/Pelvis XR: negative - L Knee XR: negative for acute changes. Left knee prosthesis noted. - Lower ext US: no DVT - Denies recent trauma or fall - c/w Gabapentin Constipation likely 2/2 opioids - colace - miralax - no bowel movement this week HTN - BP stable at this time - c/w hydralazine 10mg PRN Asthma - duonebs if needed Anxiety - continue xanax 0.25 GI ppx: PTX Dispo: Patient refusing epidural (originally planned for Thursday). PT recommends TCU. As per case management, patient accepted to TCU once insurance authorization approved. Case was discussed and reviewed with Attending Physician, Dr. Lee. <Steffanie Lee - Last Filed: 09/12/18 06:54> Objective - Vital Signs/Intake and Output Vital Signs (last 24 hours): Temp Pulse Resp BP Pulse Ox 98.1 F 67 20 136/59 L 96 09/11/18 16:41 09/11/18 16:41 09/11/18 16:41 09/11/18 16:41 09/11/18 16:41 Intake and Output: 09/11/18 09/12/18 18:59 06:59 Output Total 500 Balance -500 - Medications Medications: Current Medications Alprazolam (Xanax) 0.25 mg PO DAILY [facility]; Protocol Stop: 09/15/18 10:01 Last Admin: 09/11/18 09:43 Dose: 0.25 mg Aspirin (Ecotrin) 81 mg PO DAILY [facility] Last Admin: 09/11/18 09:42 Dose: 81 mg Docusate Sodium (Colace) 100 mg PO DAILY [facility] Last Admin: 09/11/18 17:10 Dose: 100 mg Gabapentin (Neurontin) 100 mg PO BID [facility]; Protocol Last Admin: 09/11/18 17:11 Dose: 100 mg Hydralazine HCl (Apresoline) 10 mg IVP ONCE PRN PRN Reason: Systolic Blood Pressure Montelukast Sodium (Singulair) 10 mg PO HS [facility] Last Admin: 09/11/18 21:43 Dose: 10 mg Morphine Sulfate (Morphine) 1 mg IVP Q6 PRN PRN Reason: Pain, moderate (4-7) Last Admin: 09/12/18 06:19 Dose: 1 mg Pantoprazole Sodium (Protonix Ec Tab) 20 mg PO ACB [facility] Last Admin: 09/11/18 09:43 Dose: 20 mg Polyethylene Glycol (Miralax) 17 gm PO BID [facility] Last Admin: 09/11/18 17:11 Dose: 17 gm Sertraline HCl (Zoloft) 100 mg PO DAILY [facility] Last Admin: 09/11/18 09:43 Dose: 100 mg - Labs Labs: 09/11/18 06:00 09/11/18 06:00 Attending/Attestation - Attestation I have personally seen and examined this patient.: Yes I have fully participated in the care of the patient.: Yes I have reviewed all pertinent clinical information, including history, physical exam and plan: Yes Notes (Text): 09/11/18 88 year old female with past medical history of hypertension, bradycardia s/p PPM, asthma, anxiety and left knee replacement who presented with complaint of left leg pain x 3 days associated with knee, hip and back. Xrays were negative for fracture. CT lumbar spine showed severe multilevel degenerative disc disease and severe spinal stenosis at L4-L5. Orthopedics evaluation was appreciated who recommended NS evaluation. PMN evaluation was appreciated as well. ?Epidural on Thursday, however patient is currently refusing. Continue with analgesics prn. Continue with physical therapy; currently recommending TCU. Will follow up with NS recommendations. Colace and miralax were added for constipation. Steffanie Lee MD Hospitalist.
[2018-09-12] MEDS ORDERED: Morphine 2 mg/ml ISec IVP SCH (06:00)
[2018-09-12] MEDS ORDERED: Morphine 2 mg/ml ISec IVP PRN ×2 (06:03→16:00)
[2018-09-12 06:55] VITALS: BP 164/69; PULSE 63; RESP 18; TEMP 99
[2018-09-12 07:02] LABS: BASO # 0.08 K/mm3 (0.0-2.0); BASO % 1.5 % (0.0-3.0); EOS # 0.3 (0.0-0.7); EOS % 4.9 % (1.5-5.0); GRAN # 3.36 (1.4-6.5); GRAN % 63.8 % (50.0-68.0); HEMOGLOBIN 12.1 g/dL (12.0-16.0); LYMPH # 1.2 (1.2-3.4); LYMPH % 22.8 % (22.0-35.0); MEAN CELL VOLUME 79.8 fl (80.0-105.0); MEAN CORPUSCULAR HEMOGLOBIN 24.9 pg (25.0-35.0); MEAN CORPUSCULAR HGB CONC 31.3 g/dl (31.0-37.0); MEAN PLATELET VOLUME 8.3 fl (7.0-11.0); MONO # 0.4 (0.1-0.6); RBC 4.85 10^6/uL (3.5-6.1); RED CELL DISTRIBUTION WIDTH 16.3 % (11.5-14.5); WHITE BLOOD COUNT 5.3 10^3/uL (4.5-11.0)
[2018-09-12 07:17] LABS: ALB/GLOB RATIO 1.3 (1.1-1.8); ALBUMIN 3.6 g/dL (3.0-4.8); ALT/SGPT 23 U/L (7-56); AST/SGOT 30 U/L (14-36); BLOOD UREA NITROGEN 22 mg/dL (7-21); CALCIUM 8.9 mg/dL (8.4-10.5); GFR NON-AFRICAN AMERICAN > 60
[2018-09-12] MEDS: Pantoprazole 20 mg EC Tab PO SCH (08:55)
[2018-09-12] MEDS ORDERED: Oxycodone/Acetaminophen 5/325 mg Tab PO PRN (10:53)
[2018-09-12] MEDS: POLYETHYLENE GLYCOL 3350 17 GM/Dose PACKET PO SCH (11:36)
--- NOTE | 2018-09-12 16:42 | CP.PCM.DIS ---
<SergFelix - Last Filed: 09/12/18 16:28> Provider - Provider Date of Admission: 09/08/18 16:20 Attending physician: Steffanie Lee MD Primary care physician: Tre Orlando MD Time Spent in preparation of Discharge (in minutes): 35 Hospital Course - Lab Results Lab Results: Micro Results 09/08/18 19:48 Urine,Clean Catch Urine Culture - Final 10-50,000 CFU/ML. MULTIPLE SPECIES. PROBABLE CONTAMINATION. Most Recent Lab Values WBC 5.3 10^3/uL (4.5-11.0) 09/12/18 06:00 RBC 4.85 10^6/uL (3.5-6.1) 09/12/18 06:00 Hgb 12.1 g/dL (12.0-16.0) 09/12/18 06:00 Hct 38.7 % (36.0-48.0) 09/12/18 06:00 MCV 79.8 fl (80.0-105.0) L 09/12/18 06:00 MCH 24.9 pg (25.0-35.0) L 09/12/18 06:00 MCHC 31.3 g/dl (31.0-37.0) 09/12/18 06:00 RDW 16.3 % (11.5-14.5) H 09/12/18 06:00 Plt Count 275 10^3/uL (120.0-450.0) 09/12/18 06:00 MPV 8.3 fl (7.0-11.0) 09/12/18 06:00 Gran % 63.8 % (50.0-68.0) 09/12/18 06:00 Lymph % (Auto) 22.8 % (22.0-35.0) 09/12/18 06:00 [place] % (Auto) 7.0 % (1.0-6.0) H 09/12/18 06:00 Eos % (Auto) 4.9 % (1.5-5.0) 09/12/18 06:00 Baso % (Auto) 1.5 % (0.0-3.0) 09/12/18 06:00 Gran # 3.36 (1.4-6.5) 09/12/18 06:00 Lymph # (Auto) 1.2 (1.2-3.4) 09/12/18 06:00 [place] # (Auto) 0.4 (0.1-0.6) 09/12/18 06:00 Eos # (Auto) 0.3 (0.0-0.7) 09/12/18 06:00 Baso # (Auto) 0.08 K/mm3 (0.0-2.0) 09/12/18 06:00 Sodium 137 mmol/L (132-148) 09/12/18 06:00 Potassium 4.8 mmol/L (3.6-5.0) 09/12/18 06:00 Chloride 101 mmol/L (98-107) 09/12/18 06:00 Carbon Dioxide 30 mmol/L (21-33) 09/12/18 06:00 Anion Gap 11 (10-20) 09/12/18 06:00 BUN 22 mg/dL (7-21) H 09/12/18 06:00 Creatinine 0.7 mg/dl (0.7-1.2) 09/12/18 06:00 Est GFR ( Amer) > 60 09/12/18 06:00 Est GFR (Non-Af Amer) > 60 09/12/18 06:00 POC Glucose (mg/dL) 99 mg/dL (65-110) 09/09/18 16:24 Random Glucose 109 mg/dL (70-110) 09/12/18 06:00 Serum Osmolality 272 mosm/kg (272-300) 09/08/18 08:10 Calcium 8.9 mg/dL (8.4-10.5) 09/12/18 06:00 Total Bilirubin 0.2 mg/dL (0.2-1.3) 09/12/18 06:00 AST 30 U/L (14-36) 09/12/18 06:00 ALT 23 U/L (7-56) 09/12/18 06:00 Alkaline Phosphatase 51 U/L (38-126) 09/12/18 06:00 Total Protein 6.4 g/dL (5.8-8.3) 09/12/18 06:00 Albumin 3.6 g/dL (3.0-4.8) 09/12/18 06:00 Globulin 2.8 gm/dL 09/12/18 06:00 Albumin/Globulin Ratio 1.3 (1.1-1.8) 09/12/18 06:00 Urine Color Yellow (YELLOW) 09/08/18 06:00 Urine Appearance Sl cloudy (CLEAR) 09/08/18 06:00 Urine pH 7.0 (4.7-8.0) 09/08/18 06:00 Ur Specific [place] 1.010 (1.005-1.035) 09/08/18 06:00 Urine Protein Negative mg/dL (<30 mg/dL) 09/08/18 06:00 Urine Glucose (UA) Negative mg/dL (NEGATIVE) 09/08/18 06:00 Urine Ketones Negative mg/dL (NEGATIVE) 09/08/18 06:00 Urine Blood Negative (NEGATIVE) 09/08/18 06:00 Urine Nitrate Positive (NEGATIVE) H 09/08/18 06:00 Urine Bilirubin Negative (NEGATIVE) 09/08/18 06:00 Urine Urobilinogen 0.2 E.U./dL (<1 E.U./dL) 09/08/18 06:00 Ur Leukocyte Esterase Small Fred/uL (NEGATIVE) H 09/08/18 06:00 Urine RBC 0 - 2 /hpf (0-2) 09/08/18 06:00 Urine WBC 2 - 5 /hpf (0-6) 09/08/18 06:00 Ur Epithelial Cells 4 - 5 /hpf (0-5) 09/08/18 06:00 Urine Bacteria Small (NEG) 09/08/18 06:00 Urine Osmolality 309 mosm/kg (300-1000) 09/08/18 07:15 Ur Random Sodium 64 meq/L 09/08/18 06:30 Urine Opiates Screen Positive (NEGATIVE) H 09/08/18 07:15 Urine Methadone Screen Negative (NEGATIVE) 09/08/18 07:15 Ur Barbiturates Screen Negative (NEGATIVE) 09/08/18 07:15 Ur Phencyclidine Scrn Negative (NEGATIVE) 09/08/18 07:15 Ur Amphetamines Screen Negative (NEGATIVE) 09/08/18 07:15 U Benzodiazepines Scrn Positive (NEGATIVE) H 09/08/18 07:15 U Oth Cocaine Metabols Negative (NEGATIVE) 09/08/18 07:15 U Cannabinoids Screen Negative (NEGATIVE) 09/08/18 07:15 - Hospital Course Hospital Course: Felix Ulrich, PGY1 Discharge Summary for Dr. Lee Patient is a 88 y/o female with a PMH of HTN, Pacemaker for bradycardia, OA, Anxiety, Asthma, and left knee replacement (1991), presented to the ED complaining of worsening 3 day history of left leg pain that radiates up to the left hip. Patient is unable to walk without support. She reported taking Tylenol with no relief. Patient denied any fall or trauma to the left knee. Pt states she feels weak when she tries to stand. Pt states her knee has been swollen and stiff. She reports decreased ROM. Medical team was consulted for intractable left leg pain. On further evaluation, patient described back pain with radiation to pelvis and left leg. Patient's L femur XR, Hip/Pelvis XR, Knee XR all came back negative. CT Lumbar spine showed severe multilevel degenerative changes, severe spinal stenosis at L4-L5. Left sided foraminal stenosis at L5-S1. Orthopedics was consulted. They did not recommend intervention at this time. As per PT, patient is a candidate for TCU. Neurosurgery was also consulted for possible epidural, however, patient has refused epidural. PM&R recommended MRI of the lumbar spine, however, given patients history of pacemaker, she is a poor candidate for MRI. Patient's pain was managed on the floor. She has some constipation for which she was given colace and miralax. Otherwise, no acute medical issues at this time. She will be going to TCU for rehabilitation. Discharge Exam - Head Exam Head Exam: ATRAUMATIC, NORMAL INSPECTION, NORMOCEPHALIC - Eye Exam Eye Exam: EOMI, Normal appearance, PERRL - ENT Exam ENT Exam: Mucous Membranes Moist, Normal Exam - Respiratory Exam Respiratory Exam: Clear to PA & Lateral, NORMAL BREATHING PATTERN. absent: Rales, Rhonchi, Wheezes - Cardiovascular Exam Cardiovascular Exam: REGULAR RHYTHM, +S1, +S2 - GI/Abdominal Exam GI & Abdominal Exam: Normal Bowel Sounds. absent: Firm, Guarding, Organomegaly, Rebound - Extremities Exam Extremities exam: tenderness, pedal pulses present - Neurological Exam Neurological exam: Alert, CN II-XII Intact, Normal Gait, Oriented x3, Reflexes Normal - Psychiatric Exam Psychiatric exam: Normal Affect, Normal Mood - Skin Skin Exam: Dry, Intact, Normal Color, Warm Discharge Plan - Follow Up Plan Condition: FAIR Disposition: TRANSF TO SNF Instructions: Acute Pain, Adult (DC), Muscle and Bone Pain (DC) Additional Instructions: You are being discharged to TCU for rehabilitation. After leaving TCU, you may follow up with your Primary Care Physician (Dr. Orlando) within 1 week of discharge. You may also follow up at the [facility] ([facility], which is every Thursday either with Dr. Washington or Dr. Mathews. Please also follow up with neurosurgery. Referrals: Tre Orlando MD [Primary Care Provider] - <Steffanie Lee - Last Filed: 09/12/18 17:14> Provider - Provider Date of Admission: 09/08/18 16:20 Attending physician: Steffanie Lee MD Primary care physician: Tre Orlando MD Hospital Course - Lab Results Lab Results: Micro Results 09/08/18 19:48 Urine,Clean Catch Urine Culture - Final 10-50,000 CFU/ML. MULTIPLE SPECIES. PROBABLE CONTAMINATION. Most Recent Lab Values WBC 5.3 10^3/uL (4.5-11.0) 09/12/18 06:00 RBC 4.85 10^6/uL (3.5-6.1) 09/12/18 06:00 Hgb 12.1 g/dL (12.0-16.0) 09/12/18 06:00 Hct 38.7 % (36.0-48.0) 09/12/18 06:00 MCV 79.8 fl (80.0-105.0) L 09/12/18 06:00 MCH 24.9 pg (25.0-35.0) L 09/12/18 06:00 MCHC 31.3 g/dl (31.0-37.0) 09/12/18 06:00 RDW 16.3 % (11.5-14.5) H 09/12/18 06:00 Plt Count 275 10^3/uL (120.0-450.0) 09/12/18 06:00 MPV 8.3 fl (7.0-11.0) 09/12/18 06:00 Gran % 63.8 % (50.0-68.0) 09/12/18 06:00 Lymph % (Auto) 22.8 % (22.0-35.0) 09/12/18 06:00 [place] % (Auto) 7.0 % (1.0-6.0) H 09/12/18 06:00 Eos % (Auto) 4.9 % (1.5-5.0) 09/12/18 06:00 Baso % (Auto) 1.5 % (0.0-3.0) 09/12/18 06:00 Gran # 3.36 (1.4-6.5) 09/12/18 06:00 Lymph # (Auto) 1.2 (1.2-3.4) 09/12/18 06:00 [place] # (Auto) 0.4 (0.1-0.6) 09/12/18 06:00 Eos # (Auto) 0.3 (0.0-0.7) 09/12/18 06:00 Baso # (Auto) 0.08 K/mm3 (0.0-2.0) 09/12/18 06:00 Sodium 137 mmol/L (132-148) 09/12/18 06:00 Potassium 4.8 mmol/L (3.6-5.0) 09/12/18 06:00 Chloride 101 mmol/L (98-107) 09/12/18 06:00 Carbon Dioxide 30 mmol/L (21-33) 09/12/18 06:00 Anion Gap 11 (10-20) 09/12/18 06:00 BUN 22 mg/dL (7-21) H 09/12/18 06:00 Creatinine 0.7 mg/dl (0.7-1.2) 09/12/18 06:00 Est GFR ( Amer) > 60 09/12/18 06:00 Est GFR (Non-Af Amer) > 60 09/12/18 06:00 POC Glucose (mg/dL) 99 mg/dL (65-110) 09/09/18 16:24 Random Glucose 109 mg/dL (70-110) 09/12/18 06:00 Serum Osmolality 272 mosm/kg (272-300) 09/08/18 08:10 Calcium 8.9 mg/dL (8.4-10.5) 09/12/18 06:00 Total Bilirubin 0.2 mg/dL (0.2-1.3) 09/12/18 06:00 AST 30 U/L (14-36) 09/12/18 06:00 ALT 23 U/L (7-56) 09/12/18 06:00 Alkaline Phosphatase 51 U/L (38-126) 09/12/18 06:00 Total Protein 6.4 g/dL (5.8-8.3) 09/12/18 06:00 Albumin 3.6 g/dL (3.0-4.8) 09/12/18 06:00 Globulin 2.8 gm/dL 09/12/18 06:00 Albumin/Globulin Ratio 1.3 (1.1-1.8) 09/12/18 06:00 Urine Color Yellow (YELLOW) 09/08/18 06:00 Urine Appearance Sl cloudy (CLEAR) 09/08/18 06:00 Urine pH 7.0 (4.7-8.0) 09/08/18 06:00 Ur Specific [place] 1.010 (1.005-1.035) 09/08/18 06:00 Urine Protein Negative mg/dL (<30 mg/dL) 09/08/18 06:00 Urine Glucose (UA) Negative mg/dL (NEGATIVE) 09/08/18 06:00 Urine Ketones Negative mg/dL (NEGATIVE) 09/08/18 06:00 Urine Blood Negative (NEGATIVE) 09/08/18 06:00 Urine Nitrate Positive (NEGATIVE) H 09/08/18 06:00 Urine Bilirubin Negative (NEGATIVE) 09/08/18 06:00 Urine Urobilinogen 0.2 E.U./dL (<1 E.U./dL) 09/08/18 06:00 Ur Leukocyte Esterase Small Fred/uL (NEGATIVE) H 09/08/18 06:00 Urine RBC 0 - 2 /hpf (0-2) 09/08/18 06:00 Urine WBC 2 - 5 /hpf (0-6) 09/08/18 06:00 Ur Epithelial Cells 4 - 5 /hpf (0-5) 09/08/18 06:00 Urine Bacteria Small (NEG) 09/08/18 06:00 Urine Osmolality 309 mosm/kg (300-1000) 09/08/18 07:15 Ur Random Sodium 64 meq/L 09/08/18 06:30 Urine Opiates Screen Positive (NEGATIVE) H 09/08/18 07:15 Urine Methadone Screen Negative (NEGATIVE) 09/08/18 07:15 Ur Barbiturates Screen Negative (NEGATIVE) 09/08/18 07:15 Ur Phencyclidine Scrn Negative (NEGATIVE) 09/08/18 07:15 Ur Amphetamines Screen Negative (NEGATIVE) 09/08/18 07:15 U Benzodiazepines Scrn Positive (NEGATIVE) H 09/08/18 07:15 U Oth Cocaine Metabols Negative (NEGATIVE) 09/08/18 07:15 U Cannabinoids Screen Negative (NEGATIVE) 09/08/18 07:15 Attending/Attestation - Attestation I have personally seen and examined this patient.: Yes I have fully participated in the care of the patient.: Yes I have reviewed all pertinent clinical information, including history, physical exam and plan: Yes Notes (Text): 09/12/18 17:11 88 year old female with past medical history of hypertension, bradycardia s/p PPM, asthma, anxiety and left knee replacement who presented with complaint of left leg pain x 3 days associated with knee, hip and back. Xrays were negative for fracture. CT lumbar spine showed severe multilevel degenerative disc disease and severe spinal stenosis at L4-L5. Orthopedics evaluation was appreciated who recommended NS evaluation. PMN evaluation was appreciated as well who recommended MRI spine (which patient cannot have due to pacemake) and offered epidural which patient is refusing Continue with analgesics prn. Continue with physical therapy as tolerated who recommended TCU which patient is agreeable to. Colace and miralax was added for constipation yesterday. Patient will be discharged to TCU. Continue with physical therapy. Steffanie Lee MD Hospitalist.
--- NOTE | 2018-09-13 08:19 | CON ---
DATE: 09/10/2018 REASON FOR CONSULTATION: Severe left leg pain. HISTORY OF PRESENT ILLNESS: The patient is an 88-year-old young lady who states she always has pain in different parts of her body. However, she states she does not want to sit around and not be active. According to her son, as listed on the chart, she has been moving garbage pails and doing other things around the house and seem to have a flare-up of her pain. She describes the pain as being up and down her whole back. It is also on the left side of her lower back coming into her left groin down the entire left leg. She is currently on morphine 1 mg IV push every 4 hours or so for pain, which she states helps some. She denies any loss of bowel or bladder control. She is having difficulty ambulating because of the pain. PAST MEDICAL HISTORY: Significant for hypertension, bradycardia for which she has had pacemaker in place, she also has a history of anxiety, asthma, and arthritis. MEDICATIONS: As listed on the chart. PAST SURGICAL HISTORY: Significant for left total knee replacement done 25 years ago. She had cataract surgery done as well. ALLERGIES: SHE IS ALLERGIC TO IODINE AND MEPERIDINE. SOCIAL HISTORY: She denies alcohol or tobacco use. PHYSICAL EXAMINATION: NEUROLOGIC: She is tender to palpation everywhere along the spinous processes. She has good range of motion of her right knee and right hip without any real complaints. However, gentle rotation of the left hip is allowed, but she states that aggravates the groin pain. She is status post knee replacement with a well-healed incision. She moves both lower extremities actively. Her sensory is intact to light touch. Grossly, her motor exam is intact as well. She is tender to palpation of the left great toe, although the tips of her toes are erythematous, but the left one may be a little more so and it feels a little firmer. DIAGNOSTIC DATA: CAT scan of the lumbar spine was done as obviously no MRI can be completed with the pacemaker. It shows severe marked degenerative changes with associated scoliosis. There is severe stenosis at the 4-5 level secondary to left lateral listhesis and disk degeneration. Significant facet hypertrophy at 4-5 and 5-1. ASSESSMENT AND PLAN: This young lady presents with lower back pain and probable left leg radiculitis. The plan is to transfer to Transitional Care Unit to get her some therapy as she lives alone and cannot really be discharged to home at this time. It may be beneficial to consider administering an epidural injection if we can get into the canal and see if that would help quite things down a little bit for her. She is agreeable with this, so we will see if we can set things up to do this in the next day or two. She is not on any anticoagulant therapy so that should not be an issue at this point, hopefully will allow her some relief and then she can be discharged to Transitional Care Unit and go from there. Thank you for allowing me to participate in the care of your patient. Cresencio Dickson MD MTDD
--- NOTE | 2018-09-14 12:25 | PQF ---
PROVIDER RESPONSE TEXT: Mild, intermittent REVIEWER QUERY TEXT: Asthma Specificity and Type Asthma is documented in the Medical Record. Please specify the type and severity of asthma and indic ate if this is associated with exacerbation or status asthmaticus. Such as: -- Mild intermittent -- Mild persistent -- Moderate persistent -- Severe persistent -- Exercise induced bronchospasm -- Cough variant asthma -- Other, please specify The patient's Clinical Indicators include: Please see below. Thank you. Query created by: Thalia Ennis on 09/14/2018 11:42 AM Electronically signed by: Steffanie Lee MD 09/14/2018 12:22 PM
== END 2018-09-12 16:58 | DRG 552 ==
LOC: ED 23:38 → ERH 09-08 04:06 → 3RSO 09-08 07:27 → OBSVTOIN 09-08 16:20
PROVIDERS: ADMIT Internal Medicine; ATTEND Internal Medicine
DX: M47.27 Other spondylosis with radiculopathy, lumbosacral region (principal); M48.061 Spinal stenosis, lumbar region without neurogenic claudication; M51.36 Other intervertebral disc degeneration, lumbar region; M41.9 Scoliosis, unspecified; E03.9 Hypothyroidism, unspecified; F41.9 Anxiety disorder, unspecified; H54.7 Unspecified visual loss; I10 Essential (primary) hypertension; K59.00 Constipation, unspecified; J45.30 Mild persistent asthma, uncomplicated; Z83.3 Family history of diabetes mellitus; Z87.01 Personal history of pneumonia (recurrent); Z90.710 Acquired absence of both cervix and uterus; Z95.0 Presence of cardiac pacemaker; Z96.652 Presence of left artificial knee joint; Z88.5 Allergy status to narcotic agent; Z88.8 Allergy status to other drugs, medicaments and biological substances; Z87.892 Personal history of anaphylaxis; B35.1 Tinea unguium; Z98.49 Cataract extraction status, unspecified eye

== ENCOUNTER 2018-09-12 16:49 | Inpatient (IN) | payer MEDICARE, OTHER ==
[2018-09-12 17:16] VITALS: BMI 17.2
[2018-09-12] MEDS: POLYETHYLENE GLYCOL 3350 17 GM/Dose PACKET PO SCH (18:04)
[2018-09-12] MEDS: Morphine 2 mg/ml ISec IVP PRN (20:30)
[2018-09-13] MEDS: Morphine 2 mg/ml ISec IVP PRN ×4 (02:30→21:26)
[2018-09-13] MEDS: Pantoprazole 20 mg EC Tab PO SCH (06:16)
[2018-09-13] MEDS: POLYETHYLENE GLYCOL 3350 17 GM/Dose PACKET PO SCH ×2 (10:14→17:22)
--- NOTE | 2018-09-13 20:51 | CP.PCM.HP ---
<Felix Ulrich - Last Filed: 09/13/18 20:48> History of Present Illness - History of Present Illness History of Present Illness: Felix Ulrich, H&P for Dr. Lee cc: worsening left leg pain with associated hip and back pain Patient is a 88 y/o female with a PMH of HTN, Pacemaker for bradycardia, OA, Anxiety, Asthma, and left knee replacement (1991), presented to the ED complaining of worsening 3 day history of left leg pain that radiates up to the left hip. Patient is unable to walk without support. She reported taking Tylenol with no relief. Patient denied any fall or trauma to the left knee. Pt states she feels weak when she tries to stand. Pt states her knee has been swollen and stiff. She reports decreased ROM. Medical team was consulted for intractable left leg pain. On further evaluation, patient described back pain with radiation to pelvis and left leg. Patient's L femur XR, Hip/Pelvis XR, Knee XR all came back negative. CT Lumbar spine showed severe multilevel degenerative changes, severe spinal stenosis at L4-L5. Left sided foraminal stenosis at L5-S1. Orthopedics was consulted. They did not recommend intervention at this time. As per PT, patient is a candidate for TCU. Neurosurgery was also consulted for possible epidural, however, patient has refused epidural. PM&R recommended MRI of the lumbar spine, however, given patients history of pacemaker, she is a poor candidate for MRI. Patient's pain was managed on the floor. She has some constipation for which she was given colace and miralax. Otherwise, no acute medical issues at this time. Patient is admitted to TCU for rehabilitation. PMD: Dr. Orlando PMHx: HTN, Pacemaker for bradycardia, OA, Anxiety, Asthma PSHx: cataract surgery, L knee replacement Allergies: Iodine, Meperidine Social Hx: Denies alcohol, denies tobacco, denies illicit drug use. Lives alone FH: Mother 87 DM. Father 50, MVA Meds: Restoril 30 PO, Sertraline 100 PO, Omeprazole 20 PO, Montelukast 10, Gabapentin 100 BID, Ergocalciferol 50,000 units, Alprazolam 0.25 PO Present on Admission - Present on Admission Any Indicators Present on Admission: No History of DVT/PE: No History of Uncontrolled Diabetes: No Urinary Catheter: No Decubitus Ulcer Present: No Review of Systems - Review of Systems All systems: reviewed and no additional remarkable complaints except (as per HPI.) Past Patient History - Infectious Disease Hx of Infectious Diseases: None - Past Medical History & Family History Past Medical History?: Yes - Past Social History Smoking Status: Never Smoked - CARDIAC Hx Cardiac Disorders: Yes (bradycardia) - PULMONARY Hx Respiratory Disorders: Yes Hx Pneumonia: Yes Hx Tuberculosis: No - NEUROLOGICAL Hx Neurological Disorder: No - HEENT Hx Blind: Yes - RENAL Hx Chronic Kidney Disease: No - ENDOCRINE/METABOLIC Hx Hypothyroidism: Yes - HEMATOLOGICAL/ONCOLOGICAL Hx Blood Disorders: No - INTEGUMENTARY Hx Dermatological Problems: No - MUSCULOSKELETAL/RHEUMATOLOGICAL Hx Arthritis: Yes - GASTROINTESTINAL Hx Gastrointestinal Disorders: No - GENITOURINARY/GYNECOLOGICAL Hx Reproductive Disorders: No - PSYCHIATRIC Hx Anxiety: Yes - SURGICAL HISTORY Hx Cardiac Catheterization: Yes (X4) Hx Hysterectomy: Yes Hx Orthopedic Surgery: Yes (LEFT TKR) - ANESTHESIA Hx Anesthesia: Yes Hx Anesthesia Reactions: No Hx Malignant Hyperthermia: No Meds Allergies/Adverse Reactions: Allergies Allergy/AdvReac Type Severity Reaction Status Date / Time iodine Allergy ANAPHYLAXIS Verified 09/08/18 14:23 meperidine Allergy VOMITING Verified 09/08/18 14:23 Physical Exam - Head Exam Head Exam: ATRAUMATIC, NORMAL INSPECTION, NORMOCEPHALIC - Eye Exam Eye Exam: EOMI, Normal appearance, PERRL Pupil Exam: NORMAL ACCOMODATION, PERRL - ENT Exam ENT Exam: Mucous Membranes Moist, Normal Exam - Respiratory Exam Respiratory Exam: Clear to Auscultation Bilateral, NORMAL BREATHING PATTERN. absent: Rales, Rhonchi, Wheezes, Respiratory Distress - Cardiovascular Exam Cardiovascular Exam: REGULAR RHYTHM, +S1, +S2 - GI/Abdominal Exam GI & Abdominal Exam: Normal Bowel Sounds, Soft. absent: Tenderness - Extremities Exam Extremities exam: Positive for: tenderness, pedal pulses present. Negative for: calf tenderness, full ROM - Back Exam Back exam: paraspinal tenderness - Neurological Exam Neurological exam: Alert, CN II-XII Intact, Normal Gait, Oriented x3, Reflexes Normal - Psychiatric Exam Psychiatric exam: Anxious - Skin Skin Exam: Dry, Intact, Normal Color, Warm Results - Vital Signs Recent Vital Signs: Last Vital Signs Temp 98.8 F 09/13/18 16:00 Pulse 61 09/13/18 16:00 Resp 18 09/13/18 16:00 BP 135/59 L 09/13/18 16:00 Pulse Ox 98 09/13/18 16:00 Assessment & Plan - Assessment and Plan (Free Text) Assessment: Pt is a 88 yo female with a PMH of HTN, Pacemaker for bradycardia, OA, Anxiety, Asthma, and left knee replacement (1991), presents to the ED complaining of worsening 3 day history of left leg pain with associated hip and back pain. Patient is admitted for Intractable left leg pain with associated pelvic/low back pain 2/2 lumbosacral spondylosis. Plan: Intractable Left Leg Pain with associated pelvic and low back pain 2/2 Lumbosacral Spondylosis - Admitted to TCU for rehabilitation. - Increased Gabapentin to 100mg TID - Patient refused epidural, discussed with neurosurgery. - PMR consulted (Dr. Gómez), recs appreciated. - Neurosurg consulted (Randolph), recs appreciated. - CT lumbar spine: severe multilevel degenerative changes. Severe spinal stenosis at L4-L5. L-sided foraminal stenosis at L5-S1. - Ortho was consulted. Recommendations appreciated. No intervention at this time. Recommend neurosurgery consult. - c/w morphine 1mg q6 prn for pain control - Femur XR: negative - Hip/Pelvis XR: negative - L Knee XR: negative for acute changes. Left knee prosthesis noted. - Lower ext US: no DVT Constipation likely 2/2 opioids - c/w colace - c/w miralax Anxiety - continue with xanax 0.25mg daily Hx of HTN - BP stable at this time GI ppx: PTX Dispo: Continue to monitor patient in TCU for rehabilitation. Case was discussed and reviewed with Attending Physician, Dr. Lee. <Steffanie Lee - Last Filed: 09/14/18 08:00> Results - Vital Signs Recent Vital Signs: Last Vital Signs Temp 98.8 F 09/13/18 16:00 Pulse 61 09/13/18 16:00 Resp 18 09/13/18 16:00 BP 135/59 L 09/13/18 16:00 Pulse Ox 98 09/13/18 16:00 Attending/Attestation - Attestation I have personally seen and examined this patient.: Yes I have fully participated in the care of the patient.: Yes I have reviewed all pertinent clinical information: Yes Notes (Text): 09/13/18 88 year old female with past medical history of hypertension, bradycardia s/p PPM, asthma, anxiety and left knee replacement who presented with complaint of left leg pain x 3 days associated with knee, hip and back. Xrays were negative for fracture. CT lumbar spine showed severe multilevel degenerative disc disease and severe spinal stenosis at L4-L5. MRI psine was not able to be obtained secondary to history of pacemaker. She was seen by orthopedics, PMnR and NS; offered epidural which she refused. She is transferred to TCU for rehab therapy. Continue with PT as tolerated. She is on morpine prn. Can transition to percocet once pain improves. She is on gabapentin which we will increase today. She is on colace and miralax for constipation. Steffanie Lee MD Hospitalist.
[2018-09-14] MEDS: Morphine 2 mg/ml ISec IVP PRN ×3 (03:00→20:06)
[2018-09-14] MEDS: Pantoprazole 20 mg EC Tab PO SCH (06:00)
[2018-09-14] MEDS: POLYETHYLENE GLYCOL 3350 17 GM/Dose PACKET PO SCH ×2 (10:36→17:01)
[2018-09-15] MEDS: Morphine 2 mg/ml ISec IVP PRN ×3 (03:06→21:20)
[2018-09-15] MEDS: Pantoprazole 20 mg EC Tab PO SCH (05:53)
[2018-09-15] MEDS: POLYETHYLENE GLYCOL 3350 17 GM/Dose PACKET PO SCH ×2 (10:49→18:15)
--- NOTE | 2018-09-15 14:26 | CP.PCM.PN ---
<Felix Ulrich - Last Filed: 09/15/18 14:30> Subjective - Date & Time of Evaluation Date of Evaluation: 09/15/18 Time of Evaluation: 07:00 - Subjective Subjective: Felix Ulrich, PGY1 Medicine Progress Note for Dr. Rodriguez. Patient was seen and examined at bedside this morning. Patient says that she is tolerating physical therapy well at the TCU. She still has chronic left leg and pelvic/low back pain. Patient is no longer tearful on exam. She had a bowel movement yesterday. Denies n/v/d, constipation. No adverse overnight events. A full 12 point ROS was conducted and unremarkable except as stated above. Objective - Vital Signs/Intake and Output Vital Signs (last 24 hours): Temp Pulse Resp BP Pulse Ox 98.3 F 61 18 115/48 L 97 09/14/18 16:00 09/14/18 16:00 09/14/18 16:00 09/14/18 16:00 09/14/18 16:00 - Medications Medications: Current Medications Alprazolam (Xanax) 0.25 mg PO DAILY ROB; Protocol Stop: 09/20/18 10:01 Last Admin: 09/15/18 10:54 Dose: 0.25 mg Aspirin (Ecotrin) 81 mg PO 0800 ROB; Protocol Last Admin: 09/15/18 08:17 Dose: 81 mg Docusate Sodium (Colace) 100 mg PO DAILY ROB; Protocol Last Admin: 09/15/18 10:49 Dose: 100 mg Gabapentin (Neurontin) 200 mg PO HS ROB; Protocol Gabapentin (Neurontin) 100 mg PO BID ROB; Protocol Montelukast Sodium (Singulair) 10 mg PO HS ROB; Protocol Last Admin: 09/14/18 21:40 Dose: 10 mg Morphine Sulfate (Morphine) 1 mg IVP Q6H PRN; Protocol PRN Reason: Pain, moderate (4-7) Last Admin: 09/15/18 10:55 Dose: 1 mg Pantoprazole Sodium (Protonix Ec Tab) 20 mg PO 0600 ROB; Protocol Last Admin: 09/15/18 05:53 Dose: 20 mg Polyethylene Glycol (Miralax) 17 gm PO BID ROB; Protocol Last Admin: 09/15/18 10:49 Dose: 17 gm Sertraline HCl (Zoloft) 100 mg PO DAILY ROB; Protocol Last Admin: 09/15/18 10:51 Dose: 100 mg - Constitutional Appears: No Acute Distress - Head Exam Head Exam: ATRAUMATIC, NORMAL INSPECTION, NORMOCEPHALIC - Eye Exam Eye Exam: EOMI, Normal appearance, PERRL Pupil Exam: NORMAL ACCOMODATION, PERRL - ENT Exam ENT Exam: Mucous Membranes Moist, Normal Exam - Respiratory Exam Respiratory Exam: Clear to Ausculation Bilateral, NORMAL BREATHING PATTERN. absent: Rales, Rhonchi, Wheezes - Cardiovascular Exam Cardiovascular Exam: REGULAR RHYTHM, +S1, +S2. absent: Murmur - GI/Abdominal Exam GI & Abdominal Exam: Soft, Normal Bowel Sounds. absent: Tenderness - Extremities Exam Extremities Exam: Normal Capillary Refill, Tenderness (Left leg tenderness. Chronic. Unchanged.). absent: Pedal Edema - Neurological Exam Neurological Exam: Alert, Awake, CN II-XII Intact, Normal Gait, Oriented x3 Neuro motor strength exam: Left Upper Extremity: 5, Right Upper Extremity: 5, Left Lower Extremity: 4, Right Lower Extremity: 4 - Psychiatric Exam Psychiatric exam: Normal Mood - Skin Skin Exam: Dry, Intact, Normal Color, Warm Assessment and Plan - Assessment and Plan (Free Text) Assessment: Pt is a 88 yo female with a PMH of HTN, Pacemaker for bradycardia, OA, Anxiety, Asthma, and left knee replacement (1991), presents to the ED complaining of worsening 3 day history of left leg pain with associated hip and back pain. Patient is admitted for Intractable left leg pain with associated pelvic/low back pain 2/2 lumbosacral spondylosis. Patient was accepted to TCU for rehabilitation. Plan: Intractable Left Leg Pain with associated pelvic and low back pain 2/2 Lumbosacral Spondylosis - c/w TCU for rehabilitation. - Adjusted Gabapentin dosage: Gabapentin 100mg BID. Also, take 200 mg qHS. - Patient refused epidural, discussed with neurosurgery. - PMR consulted (Dr. Gómez), recs appreciated. - Neurosurg consulted (Randolph), recs appreciated. - CT lumbar spine: severe multilevel degenerative changes. Severe spinal stenosis at L4-L5. L-sided foraminal stenosis at L5-S1. - Ortho was consulted. Recommendations appreciated. No intervention at this time. Recommend neurosurgery consult. - c/w morphine 1mg q6 prn for pain control - Femur XR: negative - Hip/Pelvis XR: negative - L Knee XR: negative for acute changes. Left knee prosthesis noted. - Lower ext US: no DVT Constipation likely 2/2 opioids - resolved - c/w colace and miralax - Patient passes flatus and has had a bowel movement Anxiety - c/w xanax 0.25mg daily Hx of HTN - BP stable at this time GI ppx: PTX Dispo: Continue to monitor patient in TCU for rehabilitation. Case was discussed and reviewed with Attending physician, Dr. Rodriguez. <Mynor Rodriguez - Last Filed: 09/16/18 07:58> Objective - Vital Signs/Intake and Output Vital Signs (last 24 hours): Temp Pulse Resp BP Pulse Ox 97.9 F 61 18 143/63 97 09/15/18 16:50 09/15/18 16:50 09/15/18 16:50 09/15/18 16:50 09/15/18 16:50 - Medications Medications: Current Medications Alprazolam (Xanax) 0.25 mg PO DAILY ROB; Protocol Stop: 09/20/18 10:01 Last Admin: 09/15/18 10:54 Dose: 0.25 mg Aspirin (Ecotrin) 81 mg PO 0800 ROB; Protocol Last Admin: 09/15/18 08:17 Dose: 81 mg Docusate Sodium (Colace) 100 mg PO DAILY ROB; Protocol Last Admin: 09/15/18 10:49 Dose: 100 mg Gabapentin (Neurontin) 200 mg PO HS ROB; Protocol Last Admin: 09/15/18 21:25 Dose: 200 mg Gabapentin (Neurontin) 100 mg PO BID ROB; Protocol Last Admin: 09/15/18 18:16 Dose: 100 mg Montelukast Sodium (Singulair) 10 mg PO HS ROB; Protocol Last Admin: 09/15/18 21:20 Dose: 10 mg Morphine Sulfate (Morphine) 1 mg IVP Q6H PRN; Protocol PRN Reason: Pain, moderate (4-7) Last Admin: 09/16/18 05:53 Dose: 1 mg Pantoprazole Sodium (Protonix Ec Tab) 20 mg PO 0600 ROB; Protocol Last Admin: 09/16/18 05:29 Dose: 20 mg Polyethylene Glycol (Miralax) 17 gm PO BID ROB; Protocol Last Admin: 09/15/18 18:15 Dose: 17 gm Sertraline HCl (Zoloft) 100 mg PO DAILY [facility]; Protocol Last Admin: 09/15/18 10:51 Dose: 100 mg Attending/Attestation - Attestation I have personally seen and examined this patient.: Yes I have fully participated in the care of the patient.: Yes I have reviewed all pertinent clinical information, including history, physical exam and plan: Yes Notes (Text): 09/16/18 07:56 Medical record note made by the resident after discussion with my direction and input after the patient was personally seen and examined by me. I have reviewed the chart and agree that the record accurately reflects by personal performance of the history, physical exam, data review, and medical decision-making, in the course for the patient. I have also personally directed the plan of care. 88 year old female with PMH of hypertension, bradycardia s/p Pacemaker asthma, anxiety and left knee replacement who presented with complaint of left leg pain x 3 days associated with knee, hip and back. Xrays were negative for fracture. CT lumbar spine showed severe multilevel degenerative disc disease and severe spinal stenosis at L4-L5. MRI of spine was not able to be obtained secondary to history of pacemaker. She was seen by orthopedics, and Neuro surgery.She was offered epidural which she refused.She is transferred to TCU for rehab therapy. Continue with PT as tolerated. Neurotnin dose is increased today, continue PRN pain medication. Avoid constipation.
[2018-09-16] MEDS: Pantoprazole 20 mg EC Tab PO SCH (05:29)
[2018-09-16] MEDS: Morphine 2 mg/ml ISec IVP PRN ×4 (05:53→23:45)
[2018-09-16] MEDS: POLYETHYLENE GLYCOL 3350 17 GM/Dose PACKET PO SCH ×2 (10:02→17:31)
--- NOTE | 2018-09-16 10:15 | CP.PCM.CON ---
History of Present Illness - History of Present Illness History of Present Illness: Podiatry consult note for Dr. Resendez 88 yo female with pmhx of HTN, Pacemaker for bradycardia, OA, Anxiety, Asthma and admitted for left knee intractable pain seen and evaluated for left hallux toe pain secondary to ingrown nail. States that she does not normally complain however her toe has been painful to even put socks on. States that she has been experiencing the pain for a while now and just presented it to the doctors satish mariano care of her. States that she had a nail procedure in the past. Denies N/V/F/C/SOB/CP and has no other pedal complaints at this time. PMHx - HTN, Pacemaker for bradycardia, OA, Anxiety, Asthma PSHx - cataract surgery, L knee replacement All - iodine, meperidine Past Patient History - Infectious Disease Hx of Infectious Diseases: None - Past Medical History & Family History Past Medical History?: Yes - Past Social History Smoking Status: Never Smoked - CARDIAC Hx Cardiac Disorders: Yes (bradycardia) - PULMONARY Hx Respiratory Disorders: Yes Hx Pneumonia: Yes Hx Tuberculosis: No - NEUROLOGICAL Hx Neurological Disorder: No - HEENT Hx Blind: Yes - RENAL Hx Chronic Kidney Disease: No - ENDOCRINE/METABOLIC Hx Hypothyroidism: Yes - HEMATOLOGICAL/ONCOLOGICAL Hx Blood Disorders: No - INTEGUMENTARY Hx Dermatological Problems: No - MUSCULOSKELETAL/RHEUMATOLOGICAL Hx Arthritis: Yes - GASTROINTESTINAL Hx Gastrointestinal Disorders: No - GENITOURINARY/GYNECOLOGICAL Hx Reproductive Disorders: No - PSYCHIATRIC Hx Anxiety: Yes - SURGICAL HISTORY Hx Cardiac Catheterization: Yes (X4) Hx Hysterectomy: Yes Hx Orthopedic Surgery: Yes (LEFT TKR) - ANESTHESIA Hx Anesthesia: Yes Hx Anesthesia Reactions: No Hx Malignant Hyperthermia: No Meds Allergies/Adverse Reactions: Allergies Allergy/AdvReac Type Severity Reaction Status Date / Time iodine Allergy ANAPHYLAXIS Verified 09/08/18 14:23 meperidine Allergy VOMITING Verified 09/08/18 14:23 - Medications Medications: Current Medications Alprazolam (Xanax) 0.25 mg PO DAILY [facility]; Protocol Stop: 09/20/18 10:01 Last Admin: 09/16/18 10:06 Dose: 0.25 mg Aspirin (Ecotrin) 81 mg PO 0800 ROB; Protocol Last Admin: 09/16/18 08:34 Dose: 81 mg Docusate Sodium (Colace) 100 mg PO DAILY [facility]; Protocol Last Admin: 09/16/18 10:01 Dose: 100 mg Gabapentin (Neurontin) 200 mg PO HS ROB; Protocol Last Admin: 09/15/18 21:25 Dose: 200 mg Gabapentin (Neurontin) 100 mg PO BID ROB; Protocol Last Admin: 09/16/18 10:03 Dose: 100 mg Montelukast Sodium (Singulair) 10 mg PO HS ROB; Protocol Last Admin: 09/15/18 21:20 Dose: 10 mg Morphine Sulfate (Morphine) 1 mg IVP Q6H PRN; Protocol PRN Reason: Pain, moderate (4-7) Last Admin: 09/16/18 05:53 Dose: 1 mg Pantoprazole Sodium (Protonix Ec Tab) 20 mg PO 0600 ROB; Protocol Last Admin: 09/16/18 05:29 Dose: 20 mg Polyethylene Glycol (Miralax) 17 gm PO BID ROB; Protocol Last Admin: 09/16/18 10:02 Dose: Not Given Sertraline HCl (Zoloft) 100 mg PO DAILY ROB; Protocol Last Admin: 09/16/18 10:03 Dose: 100 mg Physical Exam - Constitutional Appears: Well, Non-toxic, No Acute Distress - Head Exam Head Exam: ATRAUMATIC, NORMOCEPHALIC - Extremities Exam Additional comments: Vasc: pulses palpable b/l DP and PT arteries; cap refill <3 seconds to all digits; no edema noted; temp gradient warm to cool from proximal to distal Derm: no open lesions or wounds present; mild erythema at the distal aspect of the left hallux where complaints of nail pain exist; nail island formation secondary to history of previous nail procedure, pain exists at the medial nail island, no evidence of drainage or bleeding, no pus and no clinical signs of infection Ortho: pain on palpation at the left great toe, no other gross pathology noted Neuro: gross and protective sensation intact b/l - Neurological Exam Neurological exam: Alert, Oriented x3 - Psychiatric Exam Psychiatric exam: Normal Affect, Normal Mood Results - Vital Signs Recent Vital Signs: Last Vital Signs Temp 97.9 F 09/15/18 16:50 Pulse 61 09/15/18 16:50 Resp 18 09/15/18 16:50 BP 143/63 09/15/18 16:50 Pulse Ox 97 09/15/18 16:50 Assessment & Plan - Assessment and Plan (Free Text) Assessment: 88 yo female with pmhx of HTN, Pacemaker for bradycardia, OA, Anxiety, Asthma, treated for left hallux ingrown nail Plan: Patient seen and evaluated with Dr. Resendez Charts and labs reviewed - afebrile and absent leukocytosis Nail spicule removed with nail nipper without incident Patient admits to relief of pain upon procedure No dressing applied, no drainage or bleeding after procedure Podiatry to sign off on patient Thank you for the consult Please reconsult if any other pedal complaints present - Date & Time Date: 09/16/18 Time: 10:33
[2018-09-17] MEDS: Morphine 2 mg/ml ISec IVP PRN ×2 (05:33→12:35)
[2018-09-17] MEDS: Pantoprazole 20 mg EC Tab PO SCH (05:33)
[2018-09-17] MEDS: POLYETHYLENE GLYCOL 3350 17 GM/Dose PACKET PO SCH ×2 (09:49→17:29)
--- NOTE | 2018-09-17 13:03 | CP.PCM.PN ---
<Felix Ulrich - Last Filed: 09/17/18 13:00> Subjective - Date & Time of Evaluation Date of Evaluation: 09/17/18 Time of Evaluation: 07:00 - Subjective Subjective: Felix Ulrich PGY1 Medicine Progress Note for Dr. Lee Patient was seen and examined at bedside this morning. Patient still has ongoing pain at the left leg, pelvis, and low back. She says that there is minimal improvement with PT. Denies cp, sob, abdominal pain, n/v/d, constipation, fever, chills, lightheadedness, dizziness. No acute overnight events. Vital signs are stable. A full 12 point ROS was conducted and unremarkable except as stated above. Objective - Vital Signs/Intake and Output Vital Signs (last 24 hours): Temp Pulse Resp BP Pulse Ox 98.8 F 65 16 142/51 L 96 09/16/18 16:00 09/16/18 16:00 09/16/18 16:00 09/16/18 16:00 09/16/18 16:00 - Medications Medications: Current Medications Alprazolam (Xanax) 0.25 mg PO DAILY ROB; Protocol Stop: 09/20/18 10:01 Last Admin: 09/17/18 09:51 Dose: 0.25 mg Aspirin (Ecotrin) 81 mg PO 0800 ROB; Protocol Last Admin: 09/17/18 12:35 Dose: 81 mg Docusate Sodium (Colace) 100 mg PO DAILY ROB; Protocol Last Admin: 09/17/18 12:35 Dose: 100 mg Gabapentin (Neurontin) 200 mg PO HS ROB; Protocol Last Admin: 09/16/18 21:42 Dose: 200 mg Gabapentin (Neurontin) 100 mg PO BID ROB; Protocol Last Admin: 09/17/18 12:35 Dose: 100 mg Montelukast Sodium (Singulair) 10 mg PO HS ROB; Protocol Last Admin: 09/16/18 21:42 Dose: 10 mg Oxycodone/Acetaminophen (Percocet 5/325 Mg Tab) 1 tab PO Q6H PRN PRN Reason: Pain, moderate (4-7) Stop: 09/20/18 11:59 Pantoprazole Sodium (Protonix Ec Tab) 20 mg PO 0600 ROB; Protocol Last Admin: 09/17/18 05:33 Dose: 20 mg Polyethylene Glycol (Miralax) 17 gm PO BID [facility]; Protocol Last Admin: 09/17/18 09:49 Dose: Not Given Sertraline HCl (Zoloft) 100 mg PO DAILY [facility]; Protocol Last Admin: 09/17/18 09:51 Dose: 100 mg - Constitutional Appears: No Acute Distress - Head Exam Head Exam: ATRAUMATIC, NORMAL INSPECTION, NORMOCEPHALIC - Eye Exam Eye Exam: EOMI, Normal appearance, PERRL - ENT Exam ENT Exam: Mucous Membranes Moist, Normal Exam - Neck Exam Neck Exam: Full ROM, Normal Inspection. absent: Lymphadenopathy - Respiratory Exam Respiratory Exam: Clear to Ausculation Bilateral, NORMAL BREATHING PATTERN. absent: Chest Wall Tenderness, Rales, Rhonchi, Wheezes - Cardiovascular Exam Cardiovascular Exam: RRR, +S1, +S2 - GI/Abdominal Exam GI & Abdominal Exam: Soft, Normal Bowel Sounds. absent: Guarding, Rigid, Tenderness - Extremities Exam Additional comments: Improved ROM of bilateral lower extremities. - Neurological Exam Neurological Exam: Alert, Awake, CN II-XII Intact, Oriented x3 Neuro motor strength exam: Left Upper Extremity: 5, Right Upper Extremity: 5, Left Lower Extremity: 5, Right Lower Extremity: 5 - Psychiatric Exam Psychiatric exam: Normal Affect, Normal Mood - Skin Skin Exam: Dry, Intact, Normal Color, Warm Assessment and Plan - Assessment and Plan (Free Text) Assessment: Pt is a 88 yo female with a PMH of HTN, Pacemaker for bradycardia, OA, Anxiety, Asthma, and left knee replacement (1991), presents to the ED complaining of worsening 3 day history of left leg pain with associated hip and back pain. Patient is admitted for Intractable left leg pain with associated pelvic/low back pain 2/2 lumbosacral spondylosis. Patient was accepted to TCU for rehabilitation. Plan: Intractable Left Leg Pain with associated pelvic and low back pain 2/2 Lumbosacral Spondylosis - c/w TCU for rehabilitation. This is currently day #5 of TCU. - discontinued morphine; patient is agreeable for percocet 1 tab q6 prn - c/w Gabapentin 100mg BID. Also, take Gabapentin 200 mg qHS. - Patient refused epidural prior to TCU admission - PMR consulted (Dr. Gómez), recs appreciated. - Neurosurg consulted (Randolph), recs appreciated. - Ortho was consulted. Recommendations appreciated. No intervention at this time. - CT lumbar spine: severe multilevel degenerative changes. Severe spinal stenosis at L4-L5. L-sided foraminal stenosis at L5-S1. - Femur XR: negative - Hip/Pelvis XR: negative - L Knee XR: negative for acute changes. Left knee prosthesis noted. Constipation likely 2/2 opioids - resolved - c/w colace and miralax - Patient passes flatus and has had a bowel movement Anxiety - c/w xanax 0.25mg daily Hx of HTN - BP stable at this time GI ppx: PTX Dispo: Continue to monitor patient in TCU for rehabilitation. Case was discussed and reviewed with Attending physician, Dr. Lee <Steffanie Lee - Last Filed: 09/17/18 17:07> Objective - Vital Signs/Intake and Output Vital Signs (last 24 hours): Temp Pulse Resp BP Pulse Ox 98.2 F 61 18 119/56 L 96 09/17/18 16:00 09/17/18 16:00 09/17/18 16:00 09/17/18 16:00 09/17/18 16:00 - Medications Medications: Current Medications Alprazolam (Xanax) 0.25 mg PO DAILY ROB; Protocol Stop: 09/20/18 10:01 Last Admin: 09/17/18 09:51 Dose: 0.25 mg Aspirin (Ecotrin) 81 mg PO 0800 [facility]; Protocol Last Admin: 09/17/18 12:35 Dose: 81 mg Docusate Sodium (Colace) 100 mg PO DAILY [facility]; Protocol Last Admin: 09/17/18 12:35 Dose: 100 mg Gabapentin (Neurontin) 200 mg PO HS [facility]; Protocol Last Admin: 09/16/18 21:42 Dose: 200 mg Gabapentin (Neurontin) 100 mg PO BID ROB; Protocol Last Admin: 09/17/18 12:35 Dose: 100 mg Montelukast Sodium (Singulair) 10 mg PO HS ROB; Protocol Last Admin: 09/16/18 21:42 Dose: 10 mg Oxycodone/Acetaminophen (Percocet 5/325 Mg Tab) 1 tab PO Q6H PRN PRN Reason: Pain, moderate (4-7) Stop: 09/20/18 11:59 Pantoprazole Sodium (Protonix Ec Tab) 20 mg PO 0600 [facility]; Protocol Last Admin: 09/17/18 05:33 Dose: 20 mg Polyethylene Glycol (Miralax) 17 gm PO BID [facility]; Protocol Last Admin: 09/17/18 09:49 Dose: Not Given Sertraline HCl (Zoloft) 100 mg PO DAILY [facility]; Protocol Last Admin: 09/17/18 09:51 Dose: 100 mg Attending/Attestation - Attestation I have personally seen and examined this patient.: Yes I have fully participated in the care of the patient.: Yes I have reviewed all pertinent clinical information, including history, physical exam and plan: Yes Notes (Text): 09/17/18 17:05 88 year old female with PMH of hypertension, bradycardia s/p pacemaker, asthma, anxiety and left knee replacement who presented with complaint of left leg pain x 3 days associated with knee, hip and back pain. Xrays were negative for fracture. CT lumbar spine showed severe multilevel degenerative disc disease and severe spinal stenosis at L4-L5. MRI of spine was not able to be obtained secondary to history of pacemaker. She was seen by orthopedics, PMnR and neurosurgery and offered epidural which she refused. She was transferred to TCU for rehab therapy. Continue with PT as tolerated. Continue with percocet prn and gabapentin. Continue with colace and miralax to prevent constipation. Steffanie Lee MD Hospitalist.
[2018-09-17] MEDS: Oxycodone/Acetaminophen 5/325 mg Tab PO PRN (17:38)
[2018-09-18] MEDS: Oxycodone/Acetaminophen 5/325 mg Tab PO PRN ×3 (05:56→23:38)
[2018-09-18] MEDS: Pantoprazole 20 mg EC Tab PO SCH (05:56)
[2018-09-18] MEDS: POLYETHYLENE GLYCOL 3350 17 GM/Dose PACKET PO SCH ×2 (09:49→17:16)
[2018-09-18 16:22] VITALS: RESP 16
[2018-09-19] MEDS: Oxycodone/Acetaminophen 5/325 mg Tab PO PRN ×3 (05:48→17:35)
[2018-09-19] MEDS: Pantoprazole 20 mg EC Tab PO SCH (05:49)
--- NOTE | 2018-09-19 07:25 | CP.PCM.DIS ---
Provider - Provider Date of Admission: 09/12/18 16:49 Attending physician: Steffanie Lee MD Primary care physician: Tre Orlando MD Discharge Exam - Head Exam Head Exam: ATRAUMATIC, NORMAL INSPECTION, NORMOCEPHALIC Discharge Plan - Follow Up Plan Condition: GOOD Disposition: HOME/ ROUTINE Referrals: Tre Orlando MD [Primary Care Provider] -
[2018-09-19] MEDS: POLYETHYLENE GLYCOL 3350 17 GM/Dose PACKET PO SCH ×2 (09:39→17:35)
--- NOTE | 2018-09-19 11:19 | CP.PCM.PN ---
<Nik Bryant - Last Filed: 09/19/18 18:45> Subjective - Date & Time of Evaluation Date of Evaluation: 09/19/18 Time of Evaluation: 11:15 - Subjective Subjective: PGY-1 Medicine Progress Note for Dr. Munroe's service Patient seen and examined at bedside this AM. No acute overnight events reported. Continues to endorse lower back pain, hip pain. Also complains of new onset dry cough since yesterday, chest congestion. She says that there is minimal improvement with PT. 12 pt ROS otherwise negative at this time. Objective - Vital Signs/Intake and Output Vital Signs (last 24 hours): Temp Pulse Resp BP Pulse Ox 97.1 F L 65 16 141/51 L 95 09/18/18 16:00 09/18/18 16:00 09/18/18 16:00 09/18/18 16:00 09/18/18 16:00 - Medications Medications: Current Medications Alprazolam (Xanax) 0.25 mg PO DAILY ROB; Protocol Stop: 09/20/18 10:01 Last Admin: 09/19/18 09:38 Dose: 0.25 mg Aspirin (Ecotrin) 81 mg PO 0800 ROB; Protocol Last Admin: 09/19/18 08:31 Dose: 81 mg Docusate Sodium (Colace) 100 mg PO DAILY ROB; Protocol Last Admin: 09/19/18 09:38 Dose: 100 mg Gabapentin (Neurontin) 200 mg PO HS ROB; Protocol Last Admin: 09/18/18 21:18 Dose: 200 mg Gabapentin (Neurontin) 100 mg PO BID ROB; Protocol Last Admin: 09/19/18 09:39 Dose: 100 mg Montelukast Sodium (Singulair) 10 mg PO HS ROB; Protocol Last Admin: 09/18/18 21:18 Dose: 10 mg Oxycodone/Acetaminophen (Percocet 5/325 Mg Tab) 1 tab PO Q6H PRN PRN Reason: Pain, moderate (4-7) Stop: 09/20/18 11:59 Last Admin: 09/19/18 11:08 Dose: 1 tab Pantoprazole Sodium (Protonix Ec Tab) 20 mg PO 0600 ROB; Protocol Last Admin: 09/19/18 05:49 Dose: 20 mg Polyethylene Glycol (Miralax) 17 gm PO BID ROB; Protocol Last Admin: 09/19/18 09:39 Dose: 17 gm Sertraline HCl (Zoloft) 100 mg PO DAILY ROB; Protocol Last Admin: 09/19/18 09:39 Dose: 100 mg - Constitutional Appears: Non-toxic, No Acute Distress - Head Exam Head Exam: ATRAUMATIC, NORMAL INSPECTION, NORMOCEPHALIC - Eye Exam Eye Exam: EOMI, Normal appearance - ENT Exam ENT Exam: Mucous Membranes Moist, Normal Exam - Neck Exam Neck Exam: Full ROM, Normal Inspection - Respiratory Exam Respiratory Exam: Clear to Ausculation Bilateral, NORMAL BREATHING PATTERN. absent: Accessory Muscle Use, Rales, Wheezes, Respiratory Distress, Stridor - Cardiovascular Exam Cardiovascular Exam: REGULAR RHYTHM, +S1, +S2 - GI/Abdominal Exam GI & Abdominal Exam: Soft, Normal Bowel Sounds. absent: Distended, Firm, Guarding, Rigid, Tenderness, Organomegaly, Rebound - Extremities Exam Extremities Exam: Normal Capillary Refill, Normal Inspection. absent: Calf Tenderness, Joint Swelling - Back Exam Back Exam: NORMAL INSPECTION - Neurological Exam Neurological Exam: Alert, Awake, Oriented x3 - Psychiatric Exam Psychiatric exam: Anxious - Skin Skin Exam: Dry, Intact, Normal Color, Warm Assessment and Plan - Assessment and Plan (Free Text) Assessment: 88 yo F with PMHx of HTN, bradycardia s/p pacemaker, OA, anxiety, asthma, and L knee replacement (1991), presents to the ED complaining of worsening 3 day history of left leg pain with associated hip and back pain. Admitted for intractable LLE pain with associated pelvic/low back pain 2/2 lumbosacral spondylosis. Seen by Ortho, neurosurgery, PM&R and refused epidural. Accepted to TCU for nonoperative management/rehabilitation. Plan: Intractable Left Leg Pain with associated pelvic and low back pain 2/2 lumbosacral spondylosis - PM&R consulted (Dr. Gómez), recs appreciated. - Neurosurg consulted (Randolph), recs appreciated. - Ortho was consulted. Recommendations appreciated. No intervention at this time. - Patient refused epidural prior to TCU admission - CT lumbar spine: severe multilevel degenerative changes. Severe spinal stenosis at L4-L5. L-sided foraminal stenosis at L5-S1. - Femur XR: negative - Hip/Pelvis XR: negative - L Knee XR: negative for acute changes. Left knee prosthesis noted. - Medications - percocet 1 tab q6 prn - Gabapentin 100mg BID, 200 mg HS New onset cough -f/u CXR Anxiety - c/w xanax 0.25mg daily Hx of HTN - BP stable at this time Constipation likely 2/2 opioids - resolved - c/w colace and miralax - Patient passes flatus and has had a bowel movement PPx, Diet, Disposition -GI ppx: protonix -Diet: HHD -Dispo: needs safe discharge planning home, has no home services set up. Patient lives alone. Case discussed with Dr. Ludwig Bryant DO, PGY-1 <Alyssa Munroe R - Last Filed: 09/20/18 14:58> Objective - Vital Signs/Intake and Output Vital Signs (last 24 hours): Temp Pulse Resp BP Pulse Ox 97.2 F L 63 16 124/61 97 09/19/18 16:00 09/19/18 16:00 09/19/18 16:00 09/19/18 16:00 09/19/18 16:00 - Medications Medications: Current Medications Aspirin (Ecotrin) 81 mg PO 0800 ROB; Protocol Last Admin: 09/20/18 09:12 Dose: 81 mg Docusate Sodium (Colace) 100 mg PO DAILY ROB; Protocol Last Admin: 09/20/18 09:12 Dose: 100 mg Gabapentin (Neurontin) 200 mg PO HS ROB; Protocol Last Admin: 09/19/18 21:29 Dose: 200 mg Gabapentin (Neurontin) 100 mg PO BID ROB; Protocol Last Admin: 09/20/18 09:13 Dose: 100 mg Guaifenesin (Robitussin) 100 mg PO Q6H PRN PRN Reason: Cough Montelukast Sodium (Singulair) 10 mg PO HS ROB; Protocol Last Admin: 09/19/18 21:29 Dose: 10 mg Naproxen (Anaprox Ds) 550 mg PO BID ROB Last Admin: 09/20/18 13:03 Dose: 550 mg Pantoprazole Sodium (Protonix Ec Tab) 20 mg PO 0600 ROB; Protocol Last Admin: 09/20/18 05:57 Dose: 20 mg Polyethylene Glycol (Miralax) 17 gm PO BID ROB; Protocol Last Admin: 09/20/18 09:13 Dose: 17 gm Sertraline HCl (Zoloft) 100 mg PO DAILY [facility]; Protocol Last Admin: 09/20/18 09:13 Dose: 100 mg Attending/Attestation - Attestation I have personally seen and examined this patient.: Yes I have fully participated in the care of the patient.: Yes I have reviewed all pertinent clinical information, including history, physical exam and plan: Yes Notes (Text): Patient seen and examined by me with resident at 8:55AM on 09/19/18. Case including HPI, physical exam, and assessment and plan discussed with resident. Agree with above with following additions/corrections. Patient is a 88-year-old female past medical history significant for hypertension, bradycardia status post pacemaker, osteoarthritis, anxiety, asth ma, and left knee replacement that presented to the emergency room on 09/08/2018 with left leg pain radiating up to the left hip. Patient admitted to TCU for gait instability. Patient states that she is still having a lot of pain on the left side of her leg. Pain radiates from her left lower back/hip down her leg. She feels that the physical therapy is making it worse. Patient has been walking with one person assist with walker. Patient also complains of a cough that started yesterday. Cough is nonproductive. No chest pain or shortness of breath. No fevers or chills. No nausea, vomiting, or abdominal pain. No fevers or chills. No dysuria. Physical exam: General: Awake and alert sitting up in bed in no acute distress HEENT: Normocephalic atraumatic. Extraocular muscles intact. Pupils equal reactive. No scleral icterus. Oropharynx is pink and moist. Neck supple. Cardiovascular: Normal rhythm. Normal S1, S2. No murmurs, rubs, or gallops appreciated Pulmonary: Normal respiratory effort. No rhonchi, rales or wheezing appreciated. Gastrointestinal: Soft, nondistended. Nontender. Positive bowel sounds all 4 quadrants. No guarding. Musculoskeletal: Moves all extremities, no calf tenderness. No edema appreciated. Central nervous system: AAO 3. Dermatologic: Skin warm and dry. Assessment and plan: Patient is a 88-year-old female past medical history significant for hypertension, bradycardia status post pacemaker, osteoarthritis, anxiety, asthma, and left knee replacement that presented to the emergency room on 09/08/2018 with left leg pain radiating up to the left hip. Patient admitted to TCU for gait instability. 1. New onset Cough. Follow up chest xray. Placed on Robitussin as needed. 2. Gait instability. Continue physical therapy as tolerated. Patient requiring one person assist. Patient lives alone. 3. Left lower back and left leg pain. CT lumbar spine per radiologist showed severe multilevel degenerative changes, severe spinal stenosis at L4-L5, left- sided foraminal stenosis at L5-S1. Patient refused epidural prior to TCU admission. Continue physical therapy. Continue Neurontin. Continue Percocet as needed. 4. Constipation. Continue MiraLAX and Colace. 5. Depression and anxiety. Continue Xanax and Zoloft. 6. History of mild intermittent asthma. Not in acute exacerbation. Continue Singulair. 7. GI prophylaxis. Protonix. Case was discussed in detail with the patient regarding current diagnosis and treatment plan. All questions answered.
[2018-09-19 16:44] VITALS: BP 124/61; PULSE 63; TEMP 97.2; O2SAT 97
--- NOTE | 2018-09-19 17:02 | RAD ---
HISTORY: new onset cough, r/o focal infection COMPARISON: Chest x-ray performed 09/08/18 TECHNIQUE: Chest, one view. FINDINGS: LUNGS: Hyperinflation may be seen in the setting of COPD. No focal consolidation. Please note that chest x-ray has limited sensitivity for the detection of pulmonary masses. PLEURA: No significant pleural effusion identified. No definite pneumothorax . CARDIOVASCULAR: Dual lead right-sided pacemaker. Cardiomegaly. Ectatic aorta. Dense atherosclerotic calcification of the aortic knob. OSSEOUS STRUCTURES: Degenerative changes. Osseous demineralization. VISUALIZED UPPER ABDOMEN: Unremarkable. OTHER FINDINGS: None. IMPRESSION: Hyperinflation may be seen in setting of COPD. Cardiomegaly. Dual lead right-sided pacemaker.
[2018-09-19] MEDS ORDERED: guaiFENesin 100 mg/5 ml Syrup UD PO PRN (18:03)
[2018-09-20] MEDS: Pantoprazole 20 mg EC Tab PO SCH (05:57)
[2018-09-20] MEDS: Oxycodone/Acetaminophen 5/325 mg Tab PO PRN (05:57)
[2018-09-20] MEDS: POLYETHYLENE GLYCOL 3350 17 GM/Dose PACKET PO SCH (09:13)
[2018-09-20] MEDS ORDERED: Naproxen 550 mg Tab PO SCH (12:15)
--- NOTE | 2018-09-20 14:02 | CP.PCM.DIS ---
Provider - Provider Date of Admission: 09/12/18 16:49 Attending physician: Alyssa Munroe DO Primary care physician: Tre Orlando MD Consults: Dr. Bhavani Resendez Time Spent in preparation of Discharge (in minutes): 45 Diagnosis - Discharge Diagnosis (1) Leg pain, left Status: Acute (2) Lumbosacral spondylosis with radiculopathy Status: Acute Hospital Course - Hospital Course Hospital Course: On admission: Patient is a 88 y/o female with a PMH of HTN, Pacemaker for bradycardia, OA, Anxiety, Asthma, and left knee replacement (1991), presented to the ED complaining of worsening 3 day history of left leg pain that radiates up to the left hip. Patient is unable to walk without support. She reported taking Tylenol with no relief. Patient denied any fall or trauma to the left knee. Pt states she feels weak when she tries to stand. Pt states her knee has been swollen and stiff. She reports decreased ROM. Medical team was consulted for intractable left leg pain. On further evaluation, patient described back pain with radiation to pelvis and left leg. Patient's L femur XR, Hip/Pelvis XR, Knee XR all came back negative. CT Lumbar spine showed severe multilevel degenerative changes, severe spinal stenosis at L4-L5. Left sided foraminal stenosis at L5- S1. Orthopedics was consulted. They did not recommend intervention at this time. As per PT, patient is a candidate for TCU. Neurosurgery was also consulted for possible epidural, however, patient has refused epidural. PM&R recommended MRI of the lumbar spine, however, given patients history of pacemaker, she is a poor candidate for MRI. Patient's pain was managed on the floor. She has some constipation for which she was given colace and miralax. Otherwise, no acute medical issues at this time. Patient is admitted to TCU for rehabilitation. Hospital course: Patient was admitted for workup and management of intractable left leg pain with associated pelvic and low back pain 2/[address] lumbar spine showed severe multilevel degenerative changes. Severe spinal stenosis at L4-L5. L-sided foraminal stenosis at L5-S1. Femur x- ray, hip/pelvis x-ray, left knee x-ray were unremarkable. Left knee prosthesis was noted on knee x-ray. Patient was given percocet 1 tab q6h prn for pain and gabapentin 100 mg BID, 200 mg HS. PM&R was consulted (Dr. Gómez). Neurosurgery Dr. Dickson was consulted. Ortho was consulted who recommended no intervention at this time. Patient refused epidural prior to TCU admission. Patient was medically optimized for discharge and set up with home services. - Date & Time of H&P Date of H&P: 09/13/18 Time of H&P: 20:48 Discharge Exam - Head Exam Head Exam: ATRAUMATIC, NORMAL INSPECTION, NORMOCEPHALIC - Eye Exam Eye Exam: EOMI, Normal appearance - ENT Exam ENT Exam: Mucous Membranes Moist, Normal Exam - Neck Exam Neck exam: Full Rom - Respiratory Exam Respiratory Exam: NORMAL BREATHING PATTERN, UNREMARKABLE - Cardiovascular Exam Cardiovascular Exam: REGULAR RHYTHM, +S1, +S2 - GI/Abdominal Exam GI & Abdominal Exam: Normal Bowel Sounds. absent: Tenderness - Extremities Exam Extremities exam: tenderness (LLE) - Neurological Exam Neurological exam: Alert, Oriented x3 - Skin Skin Exam: Dry, Intact, Warm Discharge Plan - Discharge Medications Prescriptions: Naproxen [Anaprox DS] 550 mg PO BID PRN 14 Days tab PRN Reason: pain - Follow Up Plan Condition: GOOD Disposition: HOME/ ROUTINE Instructions: Radiculopathy (DC) Additional Instructions: Patient is medically optimized for discharge. Please follow up with your primary care doctor Dr. Orlando within 1-2 weeks. Take your medications as prescribed. Return to ED if your symptoms return and worsen. Referrals: Tre Orlando MD [Primary Care Provider] -
[2018-09-20] MEDS ORDERED: Influenza Vaccine 60 mcg/0.5 mL SYR (4YR UP) IM ONE (15:02)
[2018-09-20] MEDS ORDERED: Pneumococcal 23-Valent Vaccine IM ONE (15:02)
== END 2018-09-20 16:28 | disposition home or self-care (01) | DRG 552 ==
LOC: TRCU 16:49
PROVIDERS: ADMIT Internal Medicine; ATTEND Hospitalist
PROC: F07Z9FZ Gait Training/Functional Ambulation Treatment using Assistive, Adaptive, Supportive or Protective Equipment (ICD-10-PCS; principal; 2018-09-13)
PROC: F07M6ZZ Therapeutic Exercise Treatment of Musculoskeletal System - Whole Body (ICD-10-PCS; 2018-09-13)
PROC: F08Z1ZZ Dressing Techniques Treatment (ICD-10-PCS; 2018-09-13)
PROC: F08Z2ZZ Grooming/Personal Hygiene Treatment (ICD-10-PCS; 2018-09-13)
PROC: F08Z0ZZ Bathing/Showering Techniques Treatment (ICD-10-PCS; 2018-09-13)
PROC: F08Z4ZZ Home Management Treatment (ICD-10-PCS; 2018-09-13)
PROC: 3E02340 Introduction of Influenza Vaccine into Muscle, Percutaneous Approach (ICD-10-PCS; 2018-09-20)
PROC: 3E0234Z Introduction of Serum, Toxoid and Vaccine into Muscle, Percutaneous Approach (ICD-10-PCS; 2018-09-20)
DX: M47.27 Other spondylosis with radiculopathy, lumbosacral region (principal); E03.9 Hypothyroidism, unspecified; F32.9 Major depressive disorder, single episode, unspecified; F41.9 Anxiety disorder, unspecified; H54.7 Unspecified visual loss; I10 Essential (primary) hypertension; J45.20 Mild intermittent asthma, uncomplicated; K59.00 Constipation, unspecified; M48.061 Spinal stenosis, lumbar region without neurogenic claudication; Z79.899 Other long term (current) drug therapy; Z83.3 Family history of diabetes mellitus; Z87.01 Personal history of pneumonia (recurrent); Z90.710 Acquired absence of both cervix and uterus; Z95.0 Presence of cardiac pacemaker; Z96.652 Presence of left artificial knee joint; M19.90 Unspecified osteoarthritis, unspecified site; Z88.5 Allergy status to narcotic agent; Z88.8 Allergy status to other drugs, medicaments and biological substances; Z87.892 Personal history of anaphylaxis; Z23 Encounter for immunization

== ENCOUNTER 2018-09-21 12:49 | Emergency (ER) | payer MEDICARE, OTHER ==
[2018-09-21 12:50] VITALS: BMI 16.5
[2018-09-21 13:08] VITALS: RESP 18; TEMP 98.6
[2018-09-21] MEDS ORDERED: Oxycodone/Acetaminophen 5/325 mg Tab PO STA (13:08)
--- NOTE | 2018-09-21 13:13 | ED PDOC ---
Arrival/HPI - General Chief Complaint: Upper Extremity Problem/Injury Time Seen by Provider: 09/21/18 13:01 Historian: Patient - History of Present Illness Narrative History of Present Illness (Text): 09/21/18 13:07 88 year old female, whose past medical history includes hypertension, pacemaker for bradycardia, OA, Anxiety, Asthma, and left knee replacement, who presents to the emergency department complaining of right shoulder pain s/p falling the night before. Patient states she was using the bathroom at night when she lost her balance and fell. She notes that her right shoulder made first impact to the floor. Patient denies fevers, chills, headache, dizziness, chest pain, shortness of breath, dyspnea on exertion, cough, abdominal pain, nausea, vomiting, diarrhea, back pain, neck pain, or any other complaint. PMD: Dr. Orlando Time/Duration: 24 hours Symptom Course: Unchanged Activities at Onset: Light Context: Home Past Medical History - Provider Review Nursing Documentation Reviewed: Yes - Infectious Disease Hx of Infectious Diseases: None - Cardiac Hx Cardiac Disorders: Yes - Pulmonary Hx Respiratory Disorders: Yes Hx Pneumonia: Yes Hx Tuberculosis: No - Neurological Hx Neurological Disorder: No - HEENT Hx Blind: Yes - Renal Hx Renal Disorder: No - Endocrine/Metabolic Hx Hypothyroidism: Yes - Hematological/Oncological Hx Blood Disorders: No - Integumentary Hx Dermatological Disorder: No - Musculoskeletal/Rheumatological Hx Arthritis: Yes - Gastrointestinal Hx Gastrointestinal Disorders: No - Genitourinary/Gynecological Hx Genitourinary Disorders: No - Psychiatric Hx Anxiety: Yes Hx Substance Use: No - Surgical History Hx Cardiac Catheterization: Yes (X4) Hx Hysterectomy: Yes Hx Orthopedic Surgery: Yes (LEFT TKR) - Anesthesia Hx Anesthesia: Yes Hx Anesthesia Reactions: No Hx Malignant Hyperthermia: No - Suicidal Assessment Feels Threatened In Home Enviroment: No Family/Social History - Physician Review Nursing Documentation Reviewed: Yes Family/Social History: No Known Family HX Smoking Status: Never Smoked Hx Alcohol Use: No Hx Substance Use: No Allergies/Home Meds Allergies/Adverse Reactions: Allergies iodine Allergy (Verified 09/17/18 09:48) ANAPHYLAXIS meperidine Allergy (Verified 09/17/18 09:48) VOMITING Home Medications: Home Meds Medication Instructions Recorded Confirmed ALPRAZolam [Xanax] 0.25 mg PO HS PRN 01/21/17 09/16/18 Ergocalciferol [Drisdol 50,000 1 cap PO QWK 01/21/17 09/16/18 Intl Units Cap] Gabapentin [Neurontin] 100 mg PO BID 01/21/17 09/16/18 Omeprazole 20 mg PO DAILY 01/21/17 09/16/18 Sertraline [Zoloft] 100 mg PO DAILY 01/21/17 09/16/18 Temazepam [Restoril] 30 mg PO HS 01/21/17 09/16/18 Review of Systems - Review of Systems Constitutional: absent: Fevers Eyes: absent: Vision Changes Respiratory: absent: SOB, Cough Cardiovascular: absent: Chest Pain Gastrointestinal: absent: Abdominal Pain, Diarrhea, Nausea, Vomiting Musculoskeletal: Other (right shoulder pain). absent: Back Pain, Neck Pain Skin: absent: Pruritis Neurological: absent: Headache, Dizziness Physical Exam - Physical Exam Narrative Physical Exam (Text): 09/21/18 13:08 Gen: VS reviewed, alert, well developed, well nourished, nontoxic, mild distress, frail. ENT: normal pharynx. Eye: EOMI, PERRL. Neck: no JVD, supple, no adenopathy. CV: regular rate, regular rhythm, no rubs, no murmur, no gallops, S1, S2, pulses equal and strong. Pulm: no distress, clear to auscultation, no wheeze, no rhonchi, breath sounds equal, no rales. Abd: soft, nontender, no guarding, no rebound, no rigidity, normal bowel sounds. Ext: swelling and tenderness to the right shoulder. Skin: good color, no rash, no cyanosis. Psych: responds appropriately to questions, normal affect. Neuro: oriented x 3, CN2-12 intact grossly, motor intact, sensation intact. Vital Signs Reviewed: Yes Vital Signs Temp Pulse Resp BP Pulse Ox 09/21/18 12:50 98.6 F 73 18 120/44 L 97 Temperature: Afebrile Blood Pressure: Hypotensive Pulse: Regular Respiratory Rate: Normal Appearance: Positive for: Well-Appearing, Non-Toxic, Comfortable Pain Distress: None Mental Status: Positive for: Alert and Oriented X 3 Medical Decision Making ED Course and Treatment: 09/21/18 13:08 Impression: 88 year old female who presents to the emergency department complaining of right shoulder pain, s/p falling. Plan: -- Head CT w/o contrast -- Percocet -- Right Humerus X-ray -- Right shoulder X-ray -- Reassess and disposition Prior Visits: Notes and results from previous visits were reviewed. Progress Notes: 09/21/18 14:22 CT of the head was performed as the patient is frail and elderly and taking asp irin may have hit her head from fall. No other acute injury sustained outside of right shoulder injury. - RAD Interpretation Narrative RAD Interpretations (Text): 09/21/18 13:[address] reviewed, shows: IMPRESSION: No acute intracranial findings 09/21/18 15:03 Right Humerus X-ray reviewed, shows: IMPRESSION: Normal radiographs of right humerus. Right shoulder X-ray reviewed, shows: IMPRESSION: Normal radiographs of the right shoulder. Regional Driver: Radiologist - Scribe Statement The provider has reviewed the documentation as recorded by the Scribe Britany Monaco Provider Scribe Attestation: All medical record entries made by the Scribe were at my direction and personally dictated by me. I have reviewed the chart and agree that the record accurately reflects my personal performance of the history, physical exam, medical decision making, and the department course for this patient. I have also personally directed, reviewed, and agree with the discharge instructions and disposition. Disposition/Present on Arrival - Present on Arrival Any Indicators Present on Arrival: No History of DVT/PE: No History of Uncontrolled Diabetes: No Urinary Catheter: No History of Decub. Ulcer: No History Surgical Site Infection Following: None - Disposition Have Diagnosis and Disposition been Completed?: Yes Diagnosis: Shoulder injury, Accidental fall Disposition: HOME/ ROUTINE Disposition Time: 14:53 Patient Plan: Discharge Patient Problems: Current Active Problems Problem Status Onset Accidental fall Acute Shoulder injury Acute Condition: STABLE Discharge Instructions (ExitCare): Preventing Falls in the Older Adult, How to Use a Shoulder Sling Additional Instructions: Follow up with the orothopedic surgeon as soon as possible. SHELLEY KUHN, thank you for letting us take care of you today. Your provider was Dr. Abhijeet Mccabe and you were treated for FALL and shoulder injury. The emergency medical care you received today was directed at your acute symptoms. If you were prescribed any medication, please fill it and take as directed. It may take several days for your symptoms to resolve. Return to the Emergency Department if your symptoms worsen, do not improve, or if you have any other problems. Please contact your doctor or call one of the physicians/clinics you have been referred to that are listed on the Patient Visit Information form that is included in your discharge packet. Bring any paperwork you were given at discharge with you along with any medications you are taking to your follow up visit. Our treatment cannot replace ongoing medical care by a primary care provider outside of the emergency department. Thank you for allowing the [facility] team to be part of your care today. If you had an X-Ray or CT scan: A Radiologist will review the ED reading if any change in treatment is needed we will contact you. If you had a blood, urine, or wound culture: It will take several days for the results, if any change in treatment is needed we will contact you. If you had an STI test: It will take 48 hours for the results. Please call after 1 week if you have not heard back. Referrals: Tre Orlando MD [Primary Care Provider] - Follow up with primary [facility] [Outside] - Follow up with primary Pepe Ortiz MD [Staff Provider] - Follow up with primary Forms: [employer] (Sammarinese)
--- NOTE | 2018-09-21 13:42 | CT ---
Date of service: 09/21/2018 PROCEDURE: CT HEAD WITHOUT CONTRAST. HISTORY: fall, ?head injury COMPARISON: 05/11/2018 TECHNIQUE: Axial computed tomography images were obtained through the head/brain without intravenous contrast. Radiation dose: Total exam DLP = 819.52 mGy-cm. This CT exam was performed using one or more of the following dose reduction techniques: Automated exposure control, adjustment of the mA and/or kV according to patient size, and/or use of iterative reconstruction technique. FINDINGS: HEMORRHAGE: No intracranial hemorrhage. BRAIN: No mass effect or edema. Mild atrophy. Mild microvascular changes. VENTRICLES: Unremarkable. No hydrocephalus. CALVARIUM: Unremarkable. PARANASAL SINUSES: Unremarkable as visualized. No significant inflammatory changes. MASTOID AIR CELLS: Unremarkable as visualized. No inflammatory changes. OTHER FINDINGS: None. IMPRESSION: No acute intracranial findings
--- NOTE | 2018-09-21 14:57 | RAD ---
Date of service: 09/21/2018 PROCEDURE: Radiographs of the Right Shoulder HISTORY: fall,injiry COMPARISON: No prior. FINDINGS: BONES: Normal. No fracture. JOINTS: Normal. Glenohumeral and acromioclavicular joints preserved. No osteoarthritis. SOFT TISSUES: Normal. OTHER FINDINGS: None. IMPRESSION: Normal radiographs of the right shoulder.
--- NOTE | 2018-09-21 14:58 | RAD ---
PROCEDURE: Radiographs of the right humerus. HISTORY: fall, injury COMPARISON: None. FINDINGS: BONES: Normal. No fracture or focal lesion. SOFT TISSUES: Normal. OTHER FINDINGS: None. IMPRESSION: Normal radiographs of right humerus.
[2018-09-21 15:10] VITALS: BP 134/51; PULSE 79; O2SAT 98
== END 2018-09-21 15:10 | disposition home or self-care (01) ==
LOC: ED 12:49
DX: S49.91XA Unspecified injury of right shoulder and upper arm, initial encounter (principal); W18.30XA Fall on same level, unspecified, initial encounter; Y92.002 Bathroom of unspecified non-institutional (private) residence as the place of occurrence of the external cause

== ENCOUNTER 2018-09-30 19:28 | Observation (INO) | payer MEDICARE, OTHER ==
[2018-09-30 19:33] VITALS: BMI 19.0
[2018-09-30] MEDS ORDERED: Oxycodone/Acetaminophen 5/325 mg Tab PO STA (20:07)
--- NOTE | 2018-09-30 20:16 | ED PDOC ---
Arrival/HPI - General Historian: Patient, Family - History of Present Illness Narrative History of Present Illness (Text): 09/30/18 20:09 88 y o female with past medical history HTN, Pacemaker for bradycardia, OA, Anxiety, Asthma, and L knee replacement (1991), who presents c/o intractable L leg pain that started worsening since this morning at home. Pt states she lives at home alone, denies hx falls/trauma, hitting her head, syncope, or loss of consciousness. Was using walker at home today prior to onset of symptoms. Pt's son states that he was called by a neighbor that she was having the L leg pain and thus brought her to the ED. Rates pain as 10/10 currently, states pain starts from L hip and shoots down entire leg. Admits to sciatic-like symptoms. Pt's son states that she is currently on 3 pain medications at home for symptoms but he or the pt does not know the names of those medications. Pt states she took all of her home meds today before coming to the ER. Denies headache, dizziness, fever, chills, chest pain, sob, n/v/d/c, abd pain, urinary complaints, or other symptoms. Past medical hx: HTN, Pacemaker for bradycardia, OA, Anxiety, Asthma Past surg hx: L knee replacement (1991) Allergies: iodine, meperidine Home meds: Reviewed as per DEC; Restoril 30 mg PO hs, Zoloft 100 mg PO daily, Naproxen 550 mg PO bid prn, Singulair 10 mg PO hs, Neurontin 100 mg PO bid, Ergocalciferol 50,000 U q 1 wk, ASA 81 mg daily, Xanax 0.25 mg PO hs prn Fam hx: denies Soc hx: denies smoking, EtOH, or illicit drug use; lives at home alone and ambulates w/ walker, pt's son lives in upstairs apt PMD: Dr. Orlando [facility] <Álvaro Hills - Last Filed: 09/30/18 22:45> <Deonte Palacios - Last Filed: 09/30/18 22:48> - General Chief Complaint: Lower Extremity Problem/Injury Time Seen by Provider: 09/30/18 19:31 Past Medical History - Infectious Disease Hx of Infectious Diseases: None - Cardiac Hx Cardiac Disorders: Yes - Pulmonary Hx Respiratory Disorders: Yes Hx Pneumonia: Yes Hx Tuberculosis: No - Neurological Hx Neurological Disorder: No - HEENT Hx Blind: Yes - Renal Hx Renal Disorder: No - Endocrine/Metabolic Hx Hypothyroidism: Yes - Hematological/Oncological Hx Blood Disorders: No - Integumentary Hx Dermatological Disorder: No - Musculoskeletal/Rheumatological Hx Arthritis: Yes - Gastrointestinal Hx Gastrointestinal Disorders: No - Genitourinary/Gynecological Hx Genitourinary Disorders: No - Psychiatric Hx Anxiety: Yes Hx Substance Use: No - Surgical History Hx Cardiac Catheterization: Yes (X4) Hx Hysterectomy: Yes Hx Orthopedic Surgery: Yes (LEFT TKR) - Anesthesia Hx Anesthesia: Yes Hx Anesthesia Reactions: No Hx Malignant Hyperthermia: No - Suicidal Assessment Feels Threatened In Home Enviroment: No <Álvaro Hills - Last Filed: 09/30/18 22:45> Family/Social History Family/Social History: No Known Family HX Smoking Status: Never Smoked Hx Alcohol Use: No Hx Substance Use: No <Álvaro Hills - Last Filed: 09/30/18 22:45> Allergies/Home Meds <Álvaro Hills - Last Filed: 09/30/18 22:45> <Deonte Palacios - Last Filed: 09/30/18 22:48> Allergies/Adverse Reactions: Allergies iodine Allergy (Verified 09/17/18 09:48) ANAPHYLAXIS meperidine Allergy (Verified 09/17/18 09:48) VOMITING Home Medications: Home Meds Medication Instructions Recorded Confirmed RX: ALPRAZolam [Xanax] 0.25 mg PO HS PRN 01/21/17 09/16/18 RX: Ergocalciferol [Drisdol 50,000 1 cap PO QWK 01/21/17 09/16/18 Intl Units Cap] RX: Gabapentin [Neurontin] 100 mg PO BID 01/21/17 09/16/18 RX: Omeprazole 20 mg PO DAILY 01/21/17 09/16/18 RX: Sertraline [Zoloft] 100 mg PO DAILY 01/21/17 09/16/18 RX: Temazepam [Restoril] 30 mg PO HS 01/21/17 09/16/18 Review of Systems - Review of Systems Constitutional: Fatigue. absent: Weight Change, Fevers, Night Sweats Eyes: absent: Vision Changes ENT: absent: Hearing Changes, Tinnitus Respiratory: absent: SOB, Cough, Sputum, Wheezing Cardiovascular: absent: Chest Pain, Palpitations, OBREGON, Syncope Gastrointestinal: absent: Abdominal Pain, Stool Changes, Constipation, Diarrhea, Nausea, Vomiting, Appetite Changes Genitourinary Female: absent: Dysuria, Frequency, Hematuria, Urine Output Changes Musculoskeletal: Arthralgias, Back Pain Skin: absent: Rash, Pruritis, Skin Lesions, Laceration Neurological: Gait Changes. absent: Headache, Dizziness <JeanaÁlvaro - Last Filed: 09/30/18 22:45> Physical Exam Vital Signs Temp Pulse Resp BP Pulse Ox 09/30/18 19:38 98.5 F 72 18 177/105 H 100 Temperature: Afebrile Blood Pressure: Hypertensive Pulse: Regular Respiratory Rate: Normal Appearance: Positive for: Non-Toxic, Uncomfortable Pain Distress: Severe Mental Status: Positive for: Alert and Oriented X 3 - Systems Exam Head: Present: Atraumatic, Normocephalic Pupils: Present: PERRL Extroacular Muscles: Present: EOMI Conjunctiva: Present: Normal Mouth: Present: Moist Mucous Membranes Neck: Present: Normal Range of Motion. No: MIDLINE TENDERNESS, JVD, Lymphadenopathy Respiratory/Chest: Present: Clear to Auscultation, Good Air Exchange. No: Respiratory Distress, Accessory Muscle Use, Wheezes, Rales, Rhonchi Cardiovascular: Present: Regular Rate and Rhythm, Normal S1, S2. No: Murmurs, Rub, Gallop Abdomen: Present: Normal Bowel Sounds. No: Tenderness, Distention, Rebound, Mass/Organomegaly Back: Present: Normal Inspection, Pain with Leg Raise Upper Extremity: Present: Normal Inspection, Normal ROM, NORMAL PULSES, Neurovascularly Intact, Capillary Refill < 2s. No: Cyanosis, Edema Lower Extremity: Present: Normal Inspection, NORMAL PULSES, Tenderness, Neurovascularly Intact, Capillary Refill < 2 s. No: Edema, Swelling (Unable to perform straight leg raise due to pt uncomfortable and in pain on exam; tenderness to palpation at L lateral hip and L lower back) <JeanaÁlvaro - Last Filed: 09/30/18 22:45> Vital Signs Temp Pulse Resp BP Pulse Ox 09/30/18 19:38 98.5 F 72 18 177/105 H 100 <Deonte Palacios - Last Filed: 09/30/18 22:48> Medical Decision Making ED Course and Treatment: 09/30/18 20:31 Pt presents w/ intractable L lower leg pain. Ordered 2 mg morphine x1 for pain. Continue to monitor. Pending EKG, CXR, L hip XR. Pending labs and u/a. 09/30/18 22:23 Pt observed sleeping s/p morphine. Pt to be admitted for intractable L leg pain, hyponatremia. Spoke with medical claims representative and Dr. Kirkland (Hospitalist), who accept admission and will evaluate pt. - RAD Interpretation Radiology Orders: 09/30/18 20:08 Hip Left [HIP MIN 2V W/ PELVIS LT] [RAD] Stat - Medication Orders Current Medication Orders: Oxycodone/Acetaminophen (Percocet 5/325 Mg Tab) 1 tab PO STAT STA Stop: 09/30/18 20:08 <Álvaro Hills - Last Filed: 09/30/18 22:45> ED Course and Treatment: Seen and examined with resident. 88 y/o F p/w L leg pain. On exam, in distress secondary to pain. - Lab Interpretations Lab Results: 09/30/18 21:03 09/30/18 21:03 Lab Results 09/30/18 21:03: Sodium 127 L, Potassium 4.0, Chloride 91 L, Carbon Dioxide 25, Anion Gap 15, BUN 13, Creatinine 0.5 L, Est GFR ( Amer) > 60, Est GFR (Non-Af Amer) > 60, Random Glucose 114 H, Calcium 9.3, Total Bilirubin 0.6, AST 29, ALT 28, Alkaline Phosphatase 77, Total Protein 7.6, Albumin 4.6, Globulin 3.1, Albumin/Globulin Ratio 1.5 09/30/18 21:03: WBC 8.8 D, RBC 5.35, Hgb 13.6, Hct 40.3, MCV 75.3 L D, MCH 25.4, MCHC 33.7, RDW 16.2 H, Plt Count 435, MPV 8.2, Gran % 76.0 H, Lymph % (Auto) 16.8 L, Carroll % (Auto) 5.8, Eos % (Auto) 0.8 L, Baso % (Auto) 0.6, Gran # 6.66 H, Lymph # (Auto) 1.5, Carroll # (Auto) 0.5, Eos # (Auto) 0.1, Baso # (Auto) 0.05 - RAD Interpretation Radiology Orders: 09/30/18 20:08 Hip Left [HIP MIN 2V W/ PELVIS LT] [RAD] Stat 09/30/18 20:19 CHEST ONE VIEW [RAD] Stat - Medication Orders Current Medication Orders: Discontinued Medications Morphine Sulfate (Morphine) 2 mg IVP STAT STA Stop: 09/30/18 20:20 Last Admin: 09/30/18 21:08 Dose: 2 mg MAR Pain Assessment Document 09/30/18 21:08 MR (Rec: 09/30/18 21:08 MR [id number]) Pain Reassessment Is this a pain reassessment? Yes Sleep Is patient sleeping during reassessment? No Presence of Pain Presence of Pain Yes Pain Scale Used Protocol: PSCALES Pain Scale Used Numeric Location Left, Right or Bilateral Left Pain Location Body Site Hip Leg Description Description Constant Intensity of Pain at present 10 Pain Behavior Moaning Restlessness Facial Grimacing Aggravating Factors Changing Position IVP Administration Document 09/30/18 21:08 MR (Rec: 09/30/18 21:08 MR [id number]) Charges for Administration # of IVP Administrations 1 <Deonte Palacios - Last Filed: 09/30/18 22:48> Disposition/Present on Arrival - Present on Arrival Any Indicators Present on Arrival: No History of DVT/PE: No History of Uncontrolled Diabetes: No Urinary Catheter: No History of Decub. Ulcer: No History Surgical Site Infection Following: None - Disposition Have Diagnosis and Disposition been Completed?: Yes Disposition Time: 22:25 Patient Plan: Admission <Álvaro Hills - Last Filed: 09/30/18 22:45> <Deonte Palacios - Last Filed: 09/30/18 22:48> - Disposition Diagnosis: Intractable pain, Hyponatremia Disposition: HOSPITALIZED Patient Problems: Current Active Problems Problem Status Onset Hyponatremia Acute Intractable pain Acute Condition: GUARDED
[2018-09-30] MEDS ORDERED: Morphine 2 mg/ml ISec IVP STA (20:19)
[2018-09-30 21:18] LABS: BASO # 0.05 K/mm3 (0.0-2.0); BASO % 0.6 % (0.0-3.0); EOS # 0.1 (0.0-0.7); EOS % 0.8 % (1.5-5.0); GRAN # 6.66 (1.4-6.5); HEMOGLOBIN 13.6 g/dL (12.0-16.0); LYMPH # 1.5 (1.2-3.4); LYMPH % 16.8 % (22.0-35.0); MEAN CELL VOLUME 75.3 fl (80.0-105.0); MEAN CORPUSCULAR HEMOGLOBIN 25.4 pg (25.0-35.0); MEAN CORPUSCULAR HGB CONC 33.7 g/dl (31.0-37.0); MEAN PLATELET VOLUME 8.2 fl (7.0-11.0); MONO # 0.5 (0.1-0.6); MONO % 5.8 % (1.0-6.0); RBC 5.35 10^6/uL (3.5-6.1); RED CELL DISTRIBUTION WIDTH 16.2 % (11.5-14.5); WHITE BLOOD COUNT 8.8 10^3/uL (4.5-11.0)
[2018-09-30 21:32] LABS: ALB/GLOB RATIO 1.5 (1.1-1.8); ALBUMIN 4.6 g/dL (3.0-4.8); ALT/SGPT 28 U/L (7-56); AST/SGOT 29 U/L (14-36); BLOOD UREA NITROGEN 13 mg/dL (7-21); CALCIUM 9.3 mg/dL (8.4-10.5); GFR NON-AFRICAN AMERICAN > 60
[2018-09-30] MEDS ORDERED: Morphine 2 mg/ml ISec IVP PRN (23:20)
--- NOTE | 2018-09-30 23:22 | CP.PCM.HP ---
<VitorBetty gimenez - Last Filed: 10/01/18 06:01> History of Present Illness - History of Present Illness History of Present Illness: Betty Adler, PGY-1 Medicine H&P Note for Dr. Kirkland CC: L leg pain Pt is an 88 yo F with pmhx of HTN, darwin s/p pacemaker, OA, anxiety, asthma and L knee replacement who presents to the ED for L leg pain. Pt states that she has been having this pain for the past week but became unbearable today. Pt reports that the pain is a 10/10 and that she is unable to walk on the leg at home. Pt lives at home alone, but has her son living upstairs. She states that she is able to ambulate around her house typically with a walker and states that despite the pain she was able to ambulate around her house with the walker. Pt denies any recent falls or trauma to the area, and denies lifting any heavy objects lately. She states that pain does radiate down her entire left leg from her hip to her toes and states that she is unable to lift her L leg and that her L leg is numb. Pt denies any saddle anesthesia or bladder, bowel incontience. Pt also denies any swelling of the leg, recent prolonged travel, SOB, or pleuritic chest pain. Pt also denies fevers, chills, SOB, cough, chest pain, palpitations, leg swelling, abd pain, n/v, c/d, dysuria, frequency, saddle anesthesia, bladder or bowel incontinence. Pmhx: HTN, darwin s/p pacemaker, OA, anxiety, asthma and L knee replacement Pshx: L knee replacement, cataract surgery All: Iodine - anaphylaxis , meperidine - vomiting Social:Denies alcohol, denies tobacco, denies illicit drug use Fam: Mom: DM Meds: Restoril 30 PO, Sertraline 100 PO, Omeprazole 20 PO, Montelukast 10, Gabapentin 100 BID, Ergocalciferol 50,000 units, Alprazolam 0.25 PO - reviewed from previous chart as pt is unsure. PMD: Dr. Orlando [facility]: [facility] Present on Admission - Present on Admission Any Indicators Present on Admission: No Review of Systems - Review of Systems Review of Systems: 12 point ROS reviewed and negative excpet for noted in HPI above. Past Patient History - Infectious Disease Hx of Infectious Diseases: None - Past Medical History & Family History Past Medical History?: Yes - Past Social History Smoking Status: Never Smoked - CARDIAC Hx Cardiac Disorders: Yes - PULMONARY Hx Respiratory Disorders: Yes Hx Pneumonia: Yes Hx Tuberculosis: No - NEUROLOGICAL Hx Neurological Disorder: No - HEENT Hx Blind: Yes - RENAL Hx Chronic Kidney Disease: No - ENDOCRINE/METABOLIC Hx Hypothyroidism: Yes - HEMATOLOGICAL/ONCOLOGICAL Hx Blood Disorders: No - INTEGUMENTARY Hx Dermatological Problems: No - MUSCULOSKELETAL/RHEUMATOLOGICAL Hx Arthritis: Yes - GASTROINTESTINAL Hx Gastrointestinal Disorders: No - GENITOURINARY/GYNECOLOGICAL Hx Genitourinary Disorders: No - PSYCHIATRIC Hx Anxiety: Yes Hx Substance Use: No - SURGICAL HISTORY Hx Cardiac Catheterization: Yes (X4) Hx Hysterectomy: Yes Hx Orthopedic Surgery: Yes (LEFT TKR) - ANESTHESIA Hx Anesthesia: Yes Hx Anesthesia Reactions: No Hx Malignant Hyperthermia: No Meds Allergies/Adverse Reactions: Allergies Allergy/AdvReac Type Severity Reaction Status Date / Time iodine Allergy ANAPHYLAXIS Verified 09/17/18 09:48 meperidine Allergy VOMITING Verified 09/17/18 09:48 Physical Exam - Constitutional Appears: Non-toxic, No Acute Distress, Other (uncomfortable) - Head Exam Head Exam: ATRAUMATIC, NORMAL INSPECTION, NORMOCEPHALIC - Eye Exam Eye Exam: EOMI, Normal appearance, PERRL - Respiratory Exam Respiratory Exam: Clear to Auscultation Bilateral, NORMAL BREATHING PATTERN. absent: Accessory Muscle Use, Decreased Breath Sounds, Rales, Rhonchi, Wheezes, Respiratory Distress - Cardiovascular Exam Cardiovascular Exam: RRR, +S1, +S2. absent: Gallop, Rubs - GI/Abdominal Exam GI & Abdominal Exam: Normal Bowel Sounds, Soft. absent: Guarding, Rigid, Tenderness - Extremities Exam Extremities exam: Positive for: normal capillary refill, normal inspection, pedal pulses present. Negative for: calf tenderness, pedal edema, tenderness Additional comments: Pts is able to move L leg against resistance and is 5/5 b/l. Pt has no extinction and is able to locate soft touch on L leg when asked with eyes clsoed. - Back Exam Back exam: NORMAL INSPECTION, paraspinal tenderness (present on the L upon palpation). absent: CVA tenderness (L), CVA tenderness (R), vertebral tenderness - Neurological Exam Neurological exam: Alert, Oriented x3 - Psychiatric Exam Additional comments: uncomfortable - Skin Skin Exam: Dry, Normal Color, Warm Results - Vital Signs Recent Vital Signs: Last Vital Signs Temp 98.5 F 09/30/18 19:38 Pulse 68 09/30/18 22:55 Resp 16 09/30/18 22:55 BP 160/72 H 09/30/18 22:55 Pulse Ox 100 09/30/18 22:55 - Labs Result Diagrams: 09/30/18 21:03 09/30/18 21:03 Labs: Laboratory Results - last 24 hr 09/30/18 09/30/18 21:03 21:03 WBC 8.8 D RBC 5.35 Hgb 13.6 Hct 40.3 MCV 75.3 L D MCH 25.4 MCHC 33.7 RDW 16.2 H Plt Count 435 MPV 8.2 Gran % 76.0 H Lymph % (Auto) 16.8 L Morrison % (Auto) 5.8 Eos % (Auto) 0.8 L Baso % (Auto) 0.6 Gran # 6.66 H Lymph # (Auto) 1.5 Morrison # (Auto) 0.5 Eos # (Auto) 0.1 Baso # (Auto) 0.05 Sodium 127 L Potassium 4.0 Chloride 91 L Carbon Dioxide 25 Anion Gap 15 BUN 13 Creatinine 0.5 L Est GFR ( Amer) > 60 Est GFR (Non-Af Amer) > 60 Random Glucose 114 H Calcium 9.3 Total Bilirubin 0.6 AST 29 ALT 28 Alkaline Phosphatase 77 Total Protein 7.6 Albumin 4.6 Globulin 3.1 Albumin/Globulin Ratio 1.5 Assessment & Plan - Assessment and Plan (Free Text) Assessment: Pt is an 88 yo F with pmhx of HTN, darwin s/p pacemaker, OA, anxiety, asthma and L knee replacement who presents to the ED for L leg pain. She has been treated here in the past for similar complaints. She is found to be hyponatremic on labs. Plan: Intractable Left Leg Pain with radiation down to L leg2/2 Lumbosacral Spondylosis - CT lumbar spine from 09/09/18: severe multilevel degenerative changes. Severe spinal stenosis at L4-L5. L-sided foraminal stenosis at L5-S1. - Toradol 15 Q4 PRN - Percocet 5 Q6 PRN - Flexeril 5 TID PRN - PT eval Asymptomatic Hyponatremia likely 2/2 drug induced - Will hold diuretics - Will hold SSRIs or other medications that can cause hyponatremia - Will give gentle hydration of NS @ 75/hr - Urine Na - Urine osm - Serum osm Constipation likely 2/2 opioids - Senna S 1 tab Qhs PPX: GI: Protonix DVT: SCDs Case seen and discussed with Dr. Marita Adler DO Internal Medicine Resident PGY-1 <Colt Kirkland - Last Filed: 10/01/18 06:51> Results - Vital Signs Recent Vital Signs: Last Vital Signs Temp 98.5 F 09/30/18 19:38 Pulse 81 09/30/18 23:53 Resp 18 10/01/18 03:30 BP 157/82 H 09/30/18 23:53 Pulse Ox 99 09/30/18 23:53 - Labs Result Diagrams: 09/30/18 21:03 09/30/18 21:03 Labs: Laboratory Results - last 24 hr 09/30/18 09/30/18 21:03 21:03 WBC 8.8 D RBC 5.35 Hgb 13.6 Hct 40.3 MCV 75.3 L D MCH 25.4 MCHC 33.7 RDW 16.2 H Plt Count 435 MPV 8.2 Gran % 76.0 H Lymph % (Auto) 16.8 L Morrison % (Auto) 5.8 Eos % (Auto) 0.8 L Baso % (Auto) 0.6 Gran # 6.66 H Lymph # (Auto) 1.5 Morrison # (Auto) 0.5 Eos # (Auto) 0.1 Baso # (Auto) 0.05 Sodium 127 L Potassium 4.0 Chloride 91 L Carbon Dioxide 25 Anion Gap 15 BUN 13 Creatinine 0.5 L Est GFR ( Amer) > 60 Est GFR (Non-Af Amer) > 60 Random Glucose 114 H Calcium 9.3 Total Bilirubin 0.6 AST 29 ALT 28 Alkaline Phosphatase 77 Total Protein 7.6 Albumin 4.6 Globulin 3.1 Albumin/Globulin Ratio 1.5 Attending/Attestation - Attestation I have personally seen and examined this patient.: Yes I have fully participated in the care of the patient.: Yes I have reviewed all pertinent clinical information: Yes
[2018-10-01] MEDS: Sodium Chloride 0.9% 1,000 ML IV SCH (01:00)
[2018-10-01 03:33] VITALS: RESP 18
[2018-10-01] MEDS: Oxycodone/Acetaminophen 5/325 mg Tab PO PRN (06:04)
[2018-10-01 06:55] LABS: INR 1.02; PARTIAL THROMBOPLASTIN TIME 28.6 Seconds (25.1-36.5); PROTHROMBIN TIME 11.7 SECONDS (9.4-12.5)
[2018-10-01 07:07] LABS: BASO # 0.06 K/mm3 (0.0-2.0); EOS # 0.1 (0.0-0.7); GRAN # 3.87 (1.4-6.5); GRAN % 65.1 % (50.0-68.0); HEMOGLOBIN 12.2 g/dL (12.0-16.0); LYMPH # 1.4 (1.2-3.4); LYMPH % 23.2 % (22.0-35.0); MEAN CELL VOLUME 76.3 fl (80.0-105.0); MEAN CORPUSCULAR HEMOGLOBIN 25.1 pg (25.0-35.0); MEAN CORPUSCULAR HGB CONC 32.9 g/dl (31.0-37.0); MONO # 0.5 (0.1-0.6); MONO % 8.7 % (1.0-6.0); RBC 4.86 10^6/uL (3.5-6.1); RED CELL DISTRIBUTION WIDTH 16.4 % (11.5-14.5)
[2018-10-01 07:21] LABS: ALB/GLOB RATIO 1.4 (1.1-1.8); ALBUMIN 3.8 g/dL (3.0-4.8); ALT/SGPT 29 U/L (7-56); AST/SGOT 24 U/L (14-36); BLOOD UREA NITROGEN 9 mg/dL (7-21); CALCIUM 8.5 mg/dL (8.4-10.5); GFR NON-AFRICAN AMERICAN > 60
--- NOTE | 2018-10-01 09:21 | RAD ---
Date of service: 09/30/2018 PROCEDURE: CHEST RADIOGRAPH, 1 VIEW HISTORY: hx pacemaker COMPARISON: 09/19/2018 FINDINGS: LUNGS: Clear. PLEURA: No pneumothorax or pleural fluid seen. CARDIOVASCULAR: Aortic calcification the heart is normal in size. Dual lead pacemaker OSSEOUS STRUCTURES: No significant abnormalities. VISUALIZED UPPER ABDOMEN: Normal. OTHER FINDINGS: None. IMPRESSION: No active disease.
--- NOTE | 2018-10-01 09:26 | RAD ---
PROCEDURE: Left Hip and pelvis x-ray Radiographs. HISTORY: Intractable L hip pain COMPARISON: None. FINDINGS: BONES: Normal. No fracture. JOINTS: Normal. SOFT TISSUES: Normal. OTHER FINDINGS: None. IMPRESSION: Negative study
[2018-10-01] MEDS ORDERED: Non Formulary Medication (Omeprazole [Omeprazole] 20 MG) PO SCH (10:00)
--- NOTE | 2018-10-01 13:41 | CP.PCM.CON ---
History of Present Illness - History of Present Illness History of Present Illness: Chart reviewed. Will ask in-house anesthesiologist to see patient. Patient appears to have left leg pain from lumbar radiculopathy due to disc herniation. CT lumbar spine showed severe L4-5, L5-S1 disease with left foraminal stenosis. She's currently on the appropriate combination of medication for this condition. She may be able to benefit from a lumbar epidural once she's medically stable and hyponatremia resolves. Procedure can be done as an outpatient, she may be referred to be clinic at [facility], . Past Patient History - Infectious Disease Hx of Infectious Diseases: None - Past Medical History & Family History Past Medical History?: Yes - Past Social History Smoking Status: Never Smoked - CARDIAC Hx Cardiac Disorders: Yes - PULMONARY Hx Respiratory Disorders: Yes Hx Pneumonia: Yes Hx Tuberculosis: No - NEUROLOGICAL Hx Neurological Disorder: No - HEENT Hx Blind: Yes - RENAL Hx Chronic Kidney Disease: No - ENDOCRINE/METABOLIC Hx Hypothyroidism: Yes - HEMATOLOGICAL/ONCOLOGICAL Hx Blood Disorders: No - INTEGUMENTARY Hx Dermatological Problems: No - MUSCULOSKELETAL/RHEUMATOLOGICAL Hx Arthritis: Yes - GASTROINTESTINAL Hx Gastrointestinal Disorders: No - GENITOURINARY/GYNECOLOGICAL Hx Genitourinary Disorders: No - PSYCHIATRIC Hx Anxiety: Yes Hx Substance Use: No - SURGICAL HISTORY Hx Cardiac Catheterization: Yes (X4) Hx Hysterectomy: Yes Hx Orthopedic Surgery: Yes (LEFT TKR) - ANESTHESIA Hx Anesthesia: Yes Hx Anesthesia Reactions: No Hx Malignant Hyperthermia: No Meds Allergies/Adverse Reactions: Allergies Allergy/AdvReac Type Severity Reaction Status Date / Time iodine Allergy ANAPHYLAXIS Verified 09/17/18 09:48 meperidine Allergy VOMITING Verified 09/17/18 09:48 - Medications Medications: Current Medications Aspirin (Ecotrin) 81 mg PO DAILY [facility] Last Admin: 10/01/18 09:17 Dose: 81 mg Cyclobenzaprine HCl (Flexeril) 5 mg PO TID [facility] Last Admin: 10/01/18 09:17 Dose: 5 mg Gabapentin (Neurontin) 300 mg PO TID [facility]; Protocol Last Admin: 10/01/18 09:17 Dose: 300 mg Sodium Chloride (Sodium Chloride 0.9%) 1,000 mls @ 75 mls/hr IV .[id number] [facility] Last Admin: 10/01/18 01:00 Dose: 75 mls/hr Ketorolac Tromethamine (Toradol) 15 mg IVP Q6H PRN PRN Reason: Pain, moderate (4-7) Last Admin: 10/01/18 08:54 Dose: 15 mg Oxycodone/Acetaminophen (Percocet 5/325 Mg Tab) 1 tab PO Q6H PRN PRN Reason: Pain, severe (8-10) Stop: 10/03/18 23:37 Last Admin: 10/01/18 06:04 Dose: 1 tab Pantoprazole Sodium (Protonix Ec Tab) 40 mg PO ACB ROB Senna/Docusate Sodium (Senokot S 50 Mg-8.6 Mg) 1 tab PO HS ROB Results - Vital Signs Recent Vital Signs: Last Vital Signs Temp 98 F 10/01/18 06:00 Pulse 73 10/01/18 06:00 Resp 18 10/01/18 06:00 BP 118/81 10/01/18 06:00 Pulse Ox 97 10/01/18 06:00 - Labs Result Diagrams: 10/01/18 06:30 10/01/18 06:30 Labs: Laboratory Results - last 24 hr 09/30/18 09/30/18 10/01/18 21:03 21:03 06:30 WBC 8.8 D 6.0 D RBC 5.35 4.86 Hgb 13.6 12.2 Hct 40.3 37.1 MCV 75.3 L D 76.3 L MCH 25.4 25.1 MCHC 33.7 32.9 RDW 16.2 H 16.4 H Plt Count 435 392 MPV 8.2 8.0 Gran % 76.0 H 65.1 Lymph % (Auto) 16.8 L 23.2 Hood % (Auto) 5.8 8.7 H Eos % (Auto) 0.8 L 2.0 Baso % (Auto) 0.6 1.0 Gran # 6.66 H 3.87 Lymph # (Auto) 1.5 1.4 Hood # (Auto) 0.5 0.5 Eos # (Auto) 0.1 0.1 Baso # (Auto) 0.05 0.06 PT INR APTT Sodium 127 L Potassium 4.0 Chloride 91 L Carbon Dioxide 25 Anion Gap 15 BUN 13 Creatinine 0.5 L Est GFR ( Amer) > 60 Est GFR (Non-Af Amer) > 60 Random Glucose 114 H Serum Osmolality Calcium 9.3 Total Bilirubin 0.6 AST 29 ALT 28 Alkaline Phosphatase 77 Total Protein 7.6 Albumin 4.6 Globulin 3.1 Albumin/Globulin Ratio 1.5 10/01/18 10/01/18 10/01/18 06:30 06:30 06:30 WBC RBC Hgb Hct MCV MCH MCHC RDW Plt Count MPV Gran % Lymph % (Auto) Hood % (Auto) Eos % (Auto) Baso % (Auto) Gran # Lymph # (Auto) Hood # (Auto) Eos # (Auto) Baso # (Auto) PT 11.7 INR 1.02 APTT 28.6 Sodium 130 L Potassium 4.2 Chloride 97 L Carbon Dioxide 28 Anion Gap 10 BUN 9 Creatinine 0.5 L Est GFR ( Amer) > 60 Est GFR (Non-Af Amer) > 60 Random Glucose 101 Serum Osmolality 274 Calcium 8.5 Total Bilirubin 0.6 AST 24 ALT 29 Alkaline Phosphatase 59 Total Protein 6.7 Albumin 3.8 Globulin 2.8 Albumin/Globulin Ratio 1.4 Assessment & Plan (1) Intractable pain Assessment and Plan: 88 yo woman w/ left leg pain, possibly from left lumbar radiculopathy due to disc herniation. - f/u PT eval - continue Percocet, Neurontin, Flexeril, and NSAIDs - patient can be set up with outpatient [facility] pain clinic for outpatient epidural Status: Acute
[2018-10-01] MEDS: Morphine 2 mg/ml ISec IVP PRN (18:23)
--- NOTE | 2018-10-01 19:20 | CARD ---
APPROVED REPORT Date of service: 09/30/2018 EKG Measurement Heart [id number] <Conclusion> Normal sinus rhythm Possible Left atrial enlargement Borderline ECG
[2018-10-01] MEDS ORDERED: Docusate-Senna 50 mg-8.6 mg Tab PO SCH (22:00)
[2018-10-02] MEDS: Oxycodone/Acetaminophen 5/325 mg Tab PO PRN (06:19)
[2018-10-02] MEDS: Pantoprazole 40 mg EC Tab PO SCH ×2 (06:19→06:32)
[2018-10-02] MEDS: Sodium Chloride 0.9% 1,000 ML IV SCH (06:20)
[2018-10-02 07:12] LABS: ALB/GLOB RATIO 1.3 (1.1-1.8); ALBUMIN 3.4 g/dL (3.0-4.8); ALT/SGPT 25 U/L (7-56); AST/SGOT 22 U/L (14-36); BLOOD UREA NITROGEN 14 mg/dL (7-21); CALCIUM 8.4 mg/dL (8.4-10.5); GFR NON-AFRICAN AMERICAN > 60
[2018-10-02 07:54] LABS: BASO % 1.5 % (0.0-3.0); EOS % 3.8 % (1.5-5.0); GRAN # 2.45 (1.4-6.5); GRAN % 51.2 % (50.0-68.0); HEMOGLOBIN 11.6 g/dL (12.0-16.0); LYMPH # 1.5 (1.2-3.4); LYMPH % 30.5 % (22.0-35.0); MEAN CELL VOLUME 78.9 fl (80.0-105.0); MEAN CORPUSCULAR HEMOGLOBIN 25.3 pg (25.0-35.0); MEAN PLATELET VOLUME 8.4 fl (7.0-11.0); RBC 4.59 10^6/uL (3.5-6.1); RED CELL DISTRIBUTION WIDTH 17.6 % (11.5-14.5); WHITE BLOOD COUNT 4.8 10^3/uL (4.5-11.0)
[2018-10-02 07:55] LABS: BASO # 0.07 K/mm3 (0.0-2.0); EOS # 0.2 (0.0-0.7); MONO # 0.6 (0.1-0.6)
--- NOTE | 2018-10-02 12:16 | CP.PCM.PN ---
Subjective - Date & Time of Evaluation Date of Evaluation: 10/02/18 Time of Evaluation: 12:08 - Subjective Subjective: PGY1 Progress Note for Dr. Pearl Patient seen and examined at bedside this morning. No acute nursing events overnight. Patient continues to complain of left-sided leg pain, unchanged. 12 Point ROS is otherwise unremarkable. Objective - Vital Signs/Intake and Output Vital Signs (last 24 hours): Temp Pulse Resp BP Pulse Ox 97.9 F 65 18 147/60 99 10/02/18 07:00 10/02/18 07:00 10/02/18 07:00 10/02/18 07:00 10/02/18 07:00 Intake and Output: 10/02/18 10/02/18 06:59 18:59 Intake Total 547 Output Total 2 Balance 545 - Medications Medications: Current Medications Aspirin (Ecotrin) 81 mg PO DAILY [facility] Last Admin: 10/02/18 09:11 Dose: 81 mg Cyclobenzaprine HCl (Flexeril) 5 mg PO TID [facility] Last Admin: 10/02/18 09:11 Dose: 5 mg Gabapentin (Neurontin) 300 mg PO TID [facility]; Protocol Last Admin: 10/02/18 09:11 Dose: 300 mg Sodium Chloride (Sodium Chloride 0.9%) 1,000 mls @ 75 mls/hr IV .[id number] [facility] Last Admin: 10/02/18 06:20 Dose: Not Given Ketorolac Tromethamine (Toradol) 15 mg IVP Q6H PRN PRN Reason: Pain, moderate (4-7) Last Admin: 10/01/18 08:54 Dose: 15 mg Morphine Sulfate (Morphine) 2 mg IVP Q4H PRN PRN Reason: Pain, severe (8-10) Last Admin: 10/01/18 18:23 Dose: 2 mg Oxycodone/Acetaminophen (Percocet 5/325 Mg Tab) 1 tab PO Q6H PRN PRN Reason: Pain, severe (8-10) Stop: 10/03/18 23:37 Last Admin: 10/02/18 06:19 Dose: 1 tab Pantoprazole Sodium (Protonix Ec Tab) 40 mg PO ACB [facility] Last Admin: 10/02/18 06:32 Dose: Not Given Senna/Docusate Sodium (Senokot S 50 Mg-8.6 Mg) 1 tab PO HS ROB Last Admin: 10/02/18 06:32 Dose: Not Given - Labs Labs: 10/02/18 05:30 10/02/18 05:30 PT 11.7 SECONDS (9.4-12.5) 10/01/18 06:30 INR 1.02 10/01/18 06:30 APTT 28.6 Seconds (25.1-36.5) 10/01/18 06:30 - Additional Findings Additional findings: - Constitutional Appears: Non-toxic, No Acute Distress, Other (uncomfortable) - Head Exam Head Exam: ATRAUMATIC, NORMAL INSPECTION, NORMOCEPHALIC - Eye Exam Eye Exam: EOMI, Normal appearance, PERRL - Respiratory Exam Respiratory Exam: Clear to Auscultation Bilateral, NORMAL BREATHING PATTERN. absent: Accessory Muscle Use, Decreased Breath Sounds, Rales, Rhonchi, Wheezes, Respiratory Distress - Cardiovascular Exam Cardiovascular Exam: RRR, +S1, +S2. absent: Gallop, Rubs - GI/Abdominal Exam GI & Abdominal Exam: Normal Bowel Sounds, Soft. absent: Guarding, Rigid, Te nderness - Extremities Exam Extremities exam: Positive for: normal capillary refill, normal inspection, pedal pulses present. Negative for: calf tenderness, pedal edema, tenderness Additional comments: Pts is able to move L leg against resistance and is 5/5 b/l. Pt has no extinction and is able to locate soft touch on L leg when asked with eyes clsoed. - Back Exam Back exam: NORMAL INSPECTION, paraspinal tenderness (present on the L upon palpation). absent: CVA tenderness (L), CVA tenderness (R), vertebral tenderness - Neurological Exam Neurological exam: Alert, Oriented x3 - Psychiatric Exam Additional comments: uncomfortable
[2018-10-02] MEDS: Morphine 2 mg/ml ISec IVP PRN (14:08)
[2018-10-02 15:46] VITALS: BP 152/63; PULSE 73; TEMP 98.4; O2SAT 100
--- NOTE | 2018-10-02 15:54 | CP.PCM.DIS ---
<Niikta Mccord - Last Filed: 10/02/18 15:45> Provider - Provider Date of Admission: 09/30/18 22:17 Attending physician: Mynor Rodriguez MD Primary care physician: No PCP Consults: 10/01/18 09:00 Inpatient JITNEY DRIVER Core Measures Referral Routine Comment: Physician Instructions: Reason For Exam: met criteria Nursing Referral for Palliative Care Routine Comment: Physician Instructions: Reason For Exam: met criteria Transition In Care/Readmission Reduction Routine Comment: Physician Instructions: Reason For Exam: met criteria 10/01/18 10:09 Physician Consult Routine Comment: Consulting Provider: Cresencio Dickson Consulting Physician: Cresencio Dickson Reason for Consult: ?Spinal injection 10/01/18 11:52 Consult [Physician Consult] Routine Comment: Consulting Provider: Gerard Mathews Consulting Physician: Gerard Mathews Reason for Consult: lumbar epidural 10/01/18 12:53 Social Work Referral Routine Comment: needs assistance Physician Instructions: Reason For Exam: lives alone Time Spent in preparation of Discharge (in minutes): 45 Diagnosis - Discharge Diagnosis (1) Lumbosacral spondylosis with radiculopathy Status: Chronic Priority: Medium (2) Intractable pain Status: Chronic Priority: Medium (3) Anxiety Status: Chronic Priority: Medium (4) Leg pain, left Status: Chronic Priority: Medium Hospital Course - Lab Results Lab Results: Most Recent Lab Values WBC 4.8 10^3/uL (4.5-11.0) 10/02/18 05:30 RBC 4.59 10^6/uL (3.5-6.1) 10/02/18 05:30 Hgb 11.6 g/dL (12.0-16.0) L 10/02/18 05:30 Hct 36.2 % (36.0-48.0) 10/02/18 05:30 MCV 78.9 fl (80.0-105.0) L 10/02/18 05:30 MCH 25.3 pg (25.0-35.0) 10/02/18 05:30 MCHC 32.0 g/dl (31.0-37.0) 10/02/18 05:30 RDW 17.6 % (11.5-14.5) H 10/02/18 05:30 Plt Count 361 10^3/uL (120.0-450.0) 10/02/18 05:30 MPV 8.4 fl (7.0-11.0) 10/02/18 05:30 Gran % 51.2 % (50.0-68.0) 10/02/18 05:30 Lymph % (Auto) 30.5 % (22.0-35.0) 10/02/18 05:30 Kleberg % (Auto) 13.0 % (1.0-6.0) H 10/02/18 05:30 Eos % (Auto) 3.8 % (1.5-5.0) 10/02/18 05:30 Baso % (Auto) 1.5 % (0.0-3.0) 10/02/18 05:30 Gran # 2.45 (1.4-6.5) 10/02/18 05:30 Lymph # (Auto) 1.5 (1.2-3.4) 10/02/18 05:30 Kleberg # (Auto) 0.6 (0.1-0.6) 10/02/18 05:30 Eos # (Auto) 0.2 (0.0-0.7) 10/02/18 05:30 Baso # (Auto) 0.07 K/mm3 (0.0-2.0) 10/02/18 05:30 PT 11.7 SECONDS (9.4-12.5) 10/01/18 06:30 INR 1.02 10/01/18 06:30 APTT 28.6 Seconds (25.1-36.5) 10/01/18 06:30 Sodium 137 mmol/L (132-148) 10/02/18 05:30 Potassium 4.5 mmol/L (3.6-5.0) 10/02/18 05:30 Chloride 103 mmol/L (98-107) 10/02/18 05:30 Carbon Dioxide 30 mmol/L (21-33) 10/02/18 05:30 Anion Gap 9 (10-20) L 10/02/18 05:30 BUN 14 mg/dL (7-21) 10/02/18 05:30 Creatinine 0.6 mg/dl (0.7-1.2) L 10/02/18 05:30 Est GFR ( Amer) > 60 10/02/18 05:30 Est GFR (Non-Af Amer) > 60 10/02/18 05:30 Random Glucose 96 mg/dL (70-110) 10/02/18 05:30 Serum Osmolality 274 mosm/kg (272-300) 10/01/18 06:30 Calcium 8.4 mg/dL (8.4-10.5) 10/02/18 05:30 Phosphorus 3.8 mg/dL (2.5-4.5) 10/02/18 05:30 Magnesium 1.9 mg/dL (1.7-2.2) 10/02/18 05:30 Total Bilirubin 0.3 mg/dL (0.2-1.3) 10/02/18 05:30 AST 22 U/L (14-36) 10/02/18 05:30 ALT 25 U/L (7-56) 10/02/18 05:30 Alkaline Phosphatase 49 U/L (38-126) 10/02/18 05:30 Total Protein 6.1 g/dL (5.8-8.3) 10/02/18 05:30 Albumin 3.4 g/dL (3.0-4.8) 10/02/18 05:30 Globulin 2.7 gm/dL 10/02/18 05:30 Albumin/Globulin Ratio 1.3 (1.1-1.8) 10/02/18 05:30 - Hospital Course Hospital Course: PGY1 Discharge Summary and Hospital Course for Dr. Pearl Patient is an 88 year old F with pmhx of HTN, darwin s/p pacemaker, OA, anxiety, asthma and L knee replacement who presented to the ED for L leg pain. Patient lives at home alone, but has her son living upstairs. Patient stated that pain does radiate down her entire left leg from her hip to her toes and states that she was unable to lift her L leg and that her L leg was numb. Please see report for more details of the case. Patient was admitted for intractable lower extremity pain and for further evaluation. Patient's pain was managed with toradol, percocet, flexeril, and morphine PRN. CT of lumbar spine was obtained 09/09 and revealed severe multilevel degenerative changes. Severe spinal stenosis at L4-L5. L-sided foraminal stenosis at L5-S1. Anesthesia / Pain Management Physician Dr. Mathews was consulted for lumbar epidural. Neurosurgery was also consulted (Dr. Dickson) who recommended follow-up as an outpatient, as there was no emergency surgery indicated at this time. Patient was medically optimized and hemodynamically stable on day of discharge. Patient was provided with discharge instructions both verbally and written to the level of comprehension of the Patient. Patient both understands and agrees to the discharge instructions. Patient thus is stable for discharge to home with appropriate pain medications as listed in ambulatory orders. Please see Patient's chart for more details of this Patient's hospitalization. Patient seen and case discussed in detail with Dr. Dae Mccord PGY1 Discharge Exam - Additional Findings Additional findings: - Constitutional Appears: Non-toxic, No Acute Distress, Other (uncomfortable) - Head Exam Head Exam: ATRAUMATIC, NORMAL INSPECTION, NORMOCEPHALIC - Eye Exam Eye Exam: EOMI, Normal appearance, PERRL - Respiratory Exam Respiratory Exam: Clear to Auscultation Bilateral, NORMAL BREATHING PATTERN. absent: Accessory Muscle Use, Decreased Breath Sounds, Rales, Rhonchi, Wheezes, Respiratory Distress - Cardiovascular Exam Cardiovascular Exam: RRR, +S1, +S2. absent: Gallop, Rubs - GI/Abdominal Exam GI & Abdominal Exam: Normal Bowel Sounds, Soft. absent: Guarding, Rigid, Tenderness - Extremities Exam Extremities exam: Positive for: normal capillary refill, normal inspection, pedal pulses present. Negative for: calf tenderness, pedal edema, tenderness Additional comments: Pts is able to move L leg against resistance and is 5/5 b/l. Pt has no extinction and is able to locate soft touch on L leg when asked with eyes clsoed. - Back Exam Back exam: NORMAL INSPECTION, paraspinal tenderness (present on the L upon palpation). absent: CVA tenderness (L), CVA tenderness (R), vertebral tenderness - Neurological Exam Neurological exam: Alert, Oriented x3 - Psychiatric Exam Additional comments: uncomfortable - Skin Skin Exam: Dry, Normal Color, Warm Discharge Plan - Discharge Medications Prescriptions: Cyclobenzaprine [Flexeril] 5 mg PO TID #15 tab Gabapentin [Neurontin] 300 mg PO TID #15 cap oxyCODONE/Acetaminophen [Percocet 5/325 mg Tab] 1 ea PO Q6 #15 tab - Follow Up Plan Condition: GUARDED Disposition: HOME/ ROUTINE Instructions: Spinal and Epidural Anesthesia, Dehydration, Adult (DC), Pacemakers Additional Instructions: Please follow up with your primary care doctor within 3-5 days of being discharged from the hospital. Please discuss all medical issues addressed. Please follow up with your spine doctor, Dr. Dickson, as soon as possible to set up an appointment at his office for an epidural. You have been given a small supply of Percocet (pain pill) to be taken as needed for pain. Please do not drive or operate heavy machinery on this medication. Please take all medications as prescribed. If your symptoms return, please seek emergency medical attention. Referrals: Cresencio Dickson MD [Staff Provider] - Tre Orlando MD [Medical Doctor] - <Moriah Pearl - Last Filed: 10/03/18 15:07> Provider - Provider Date of Admission: 09/30/18 22:17 Attending physician: Mynor Rodriguez MD Consults: 10/01/18 09:00 Inpatient JITNEY DRIVER Core Measures Referral Routine Comment: Physician Instructions: Reason For Exam: met criteria Nursing Referral for Palliative Care Routine Comment: Physician Instructions: Reason For Exam: met criteria Transition In Care/Readmission Reduction Routine Comment: Physician Instructions: Reason For Exam: met criteria 10/01/18 10:09 Physician Consult Routine Comment: Consulting Provider: Cresencio Dickson Consulting Physician: Cresencio Dickson Reason for Consult: ?Spinal injection 10/01/18 11:52 Consult [Physician Consult] Routine Comment: Consulting Provider: Gerard Mathews Consulting Physician: Gerard Mathews Reason for Consult: lumbar epidural 10/01/18 12:53 Social Work Referral Routine Comment: needs assistance Physician Instructions: Reason For Exam: lives alone Hospital Course - Lab Results Lab Results: Most Recent Lab Values WBC 4.8 10^3/uL (4.5-11.0) 10/02/18 05:30 RBC 4.59 10^6/uL (3.5-6.1) 10/02/18 05:30 Hgb 11.6 g/dL (12.0-16.0) L 10/02/18 05:30 Hct 36.2 % (36.0-48.0) 10/02/18 05:30 MCV 78.9 fl (80.0-105.0) L 10/02/18 05:30 MCH 25.3 pg (25.0-35.0) 10/02/18 05:30 MCHC 32.0 g/dl (31.0-37.0) 10/02/18 05:30 RDW 17.6 % (11.5-14.5) H 10/02/18 05:30 Plt Count 361 10^3/uL (120.0-450.0) 10/02/18 05:30 MPV 8.4 fl (7.0-11.0) 10/02/18 05:30 Gran % 51.2 % (50.0-68.0) 10/02/18 05:30 Lymph % (Auto) 30.5 % (22.0-35.0) 10/02/18 05:30 Kleberg % (Auto) 13.0 % (1.0-6.0) H 10/02/18 05:30 Eos % (Auto) 3.8 % (1.5-5.0) 10/02/18 05:30 Baso % (Auto) 1.5 % (0.0-3.0) 10/02/18 05:30 Gran # 2.45 (1.4-6.5) 10/02/18 05:30 Lymph # (Auto) 1.5 (1.2-3.4) 10/02/18 05:30 Kleberg # (Auto) 0.6 (0.1-0.6) 10/02/18 05:30 Eos # (Auto) 0.2 (0.0-0.7) 10/02/18 05:30 Baso # (Auto) 0.07 K/mm3 (0.0-2.0) 10/02/18 05:30 PT 11.7 SECONDS (9.4-12.5) 10/01/18 06:30 INR 1.02 10/01/18 06:30 APTT 28.6 Seconds (25.1-36.5) 10/01/18 06:30 Sodium 137 mmol/L (132-148) 10/02/18 05:30 Potassium 4.5 mmol/L (3.6-5.0) 10/02/18 05:30 Chloride 103 mmol/L (98-107) 10/02/18 05:30 Carbon Dioxide 30 mmol/L (21-33) 10/02/18 05:30 Anion Gap 9 (10-20) L 10/02/18 05:30 BUN 14 mg/dL (7-21) 10/02/18 05:30 Creatinine 0.6 mg/dl (0.7-1.2) L 10/02/18 05:30 Est GFR ( Amer) > 60 10/02/18 05:30 Est GFR (Non-Af Amer) > 60 10/02/18 05:30 Random Glucose 96 mg/dL (70-110) 10/02/18 05:30 Serum Osmolality 274 mosm/kg (272-300) 10/01/18 06:30 Calcium 8.4 mg/dL (8.4-10.5) 10/02/18 05:30 Phosphorus 3.8 mg/dL (2.5-4.5) 10/02/18 05:30 Magnesium 1.9 mg/dL (1.7-2.2) 10/02/18 05:30 Total Bilirubin 0.3 mg/dL (0.2-1.3) 10/02/18 05:30 AST 22 U/L (14-36) 10/02/18 05:30 ALT 25 U/L (7-56) 10/02/18 05:30 Alkaline Phosphatase 49 U/L (38-126) 10/02/18 05:30 Total Protein 6.1 g/dL (5.8-8.3) 10/02/18 05:30 Albumin 3.4 g/dL (3.0-4.8) 10/02/18 05:30 Globulin 2.7 gm/dL 10/02/18 05:30 Albumin/Globulin Ratio 1.3 (1.1-1.8) 10/02/18 05:30 Attending/Attestation - Attestation I have personally seen and examined this patient.: Yes I have fully participated in the care of the patient.: Yes I have reviewed all pertinent clinical information, including history, physical exam and plan: Yes Notes (Text): 10/03/18 12:43 Attending note; Patient seen and examined with resident. Patient is alert and awake. Back pain is improving. Patient had physical therapy yesterday. Patient is able to walk. Patient is a 88-year-old female past medical history significant for hypertension, bradycardia status post pacemaker, osteoarthritis, anxiety, asthma, and left knee replacement is admitted for back pain. Patient was recently discharged from TCU after physical therapy. 1. Back pain with Gait instability. Resolving with morphine. Patient is started on Percocet. Tolerating well. PT evaluation appreciated. Patient can be discharged home with services. Case discussed with patient's son in detail. respiratory manager arranged for home services and PT. 2. Chronic back pain; CT lumbar spine showed severe multilevel degenerative changes, severe spinal stenosis at L4-L5, left-sided foraminal stenosis at L5- S1. Patient is advised to follow-up with neurosurgery Dr. Dickson for possible epidural next week. Patient's son informed to call his office and make appointment. Patient was also evaluated by anesthesia. Outpatient follow-up recommended. 3. Depression and anxiety. Continue Xanax and Zoloft. 4. Hyponatremia; resolved after IV fluid hydration. 5. Hypertension; controlled. Stable cardiac status. Upon discharge patient will follow-up with PMD Dr. orlando. Case was discussed in detail with the patient regarding current diagnosis and treatment plan. All questions answered.
== END 2018-10-02 16:49 | disposition home or self-care (01) ==
LOC: ED 19:28 → ERH 22:17 → 5RNO 10-01 00:36
PROVIDERS: ADMIT Internal Medicine; ATTEND Internal Medicine
DX: M47.27 Other spondylosis with radiculopathy, lumbosacral region (principal); M48.061 Spinal stenosis, lumbar region without neurogenic claudication; M51.16 Intervertebral disc disorders with radiculopathy, lumbar region; E03.9 Hypothyroidism, unspecified; E87.1 Hypo-osmolality and hyponatremia; F32.89 Other specified depressive episodes; F41.9 Anxiety disorder, unspecified; G89.29 Other chronic pain; H54.7 Unspecified visual loss; I10 Essential (primary) hypertension; Z79.82 Long term (current) use of aspirin; Z79.899 Other long term (current) drug therapy; Z83.3 Family history of diabetes mellitus; Z87.01 Personal history of pneumonia (recurrent); Z90.710 Acquired absence of both cervix and uterus; Z95.0 Presence of cardiac pacemaker; Z96.652 Presence of left artificial knee joint; M19.90 Unspecified osteoarthritis, unspecified site; Z87.09 Personal history of other diseases of the respiratory system; Z98.49 Cataract extraction status, unspecified eye; Z88.5 Allergy status to narcotic agent; Z88.8 Allergy status to other drugs, medicaments and biological substances; Z87.892 Personal history of anaphylaxis
CPT/HCPCS: 36415; 71045; 73502; 80053; 83735; 83930; 84100; 85025; 85610; 85730; 93005; 96374; 97162; 99285; C9113; G0378; G8978; G8979; J1885; J2270; J7030